=== PATIENT | female | born 1935 | race Caucasian/White ===

== ENCOUNTER 2024-01-14 07:57 | Outpatient (CLI) | payer MEDICARE, BC, MEDICAID, SELFPAY | END 2024-01-14 07:58 | disposition home or self-care (01) | PROVIDERS: Visit Provider Internal Medicine | DX: S79.911A Unspecified injury of right hip, initial encounter (principal); W18.30XA Fall on same level, unspecified, initial encounter; Y92.008 Other place in unspecified non-institutional (private) residence as the place of occurrence of the external cause | CPT/HCPCS: A0425; A0427 ==

== ENCOUNTER 2024-01-14 08:28 | Inpatient (IN) | payer MEDICARE, BC, MEDICAID, SELFPAY ==
[2024-01-14] VITALS (55 sets, daily range): BP systolic 98–160; BP diastolic 43–92; PULSE 81–119; RESP 16–20; TEMP 36.4–37.2; O2SAT 89–96; BMI 18.5
--- NOTE | 2024-01-14 08:39 | CRLHL7_ITS ---
For Patients: As a result of the Cures Act, medical imaging exams and procedure reports are released immediately into your electronic medical record. You may view this report before your referring provider. If you have questions, please contact your health care provider. INDICATION: Fall. TECHNIQUE: Chest 1 views. COMPARISON: None. FINDINGS: Cardiovasculature and mediastinum: Heart size is normal. Unremarkable mediastinum. Lungs and pleural spaces: Lungs are clear except for a few small calcified granulomas. No sign of infiltrate or mass. No sign of pleural effusion. No pneumothorax. Bones and soft tissues: No significant findings. IMPRESSION: No acute or significant findings. Dictated by Oseas Alvarez MD @ 01/14/2024 11:17:08 AM (Electronically Signed)
--- NOTE | 2024-01-14 08:39 | CRLHL7_ITS ---
For Patients: As a result of the Century Cures Act, medical imaging exams and procedure reports are released immediately into your electronic medical record. You may view this report before your referring provider. If you have questions, please contact your health care provider. Indication: Fall with right hip pain. Technique: Pelvis and right hip 3 views. Comparison: None. Findings/Impression: Bones: Acute nondisplaced subcapital fracture of the right femoral neck. No other osseous abnormality. Joint spaces: Severe bilateral hip joint arthritis. Soft tissues: Unremarkable. Dictated by Oseas Alvarez MD @ 01/14/2024 11:18:31 AM (Electronically Signed)
--- NOTE | 2024-01-14 08:50 | ED_ITS ---
HPI - General Adult General Date Seen: 01/14/24 Chief complaint: Hip Injury/Pain Stated complaint: altered mental status Time Seen by Provider: 01/14/24 08:31 Source: patient, EMS, RN notes reviewed and old records reviewed Mode of arrival: EMS Limitations: no limitations History of Present Illness HPI narrative: This very pleasant 88-year-old female is brought in by EMS from home where she resides with family and help. She was coming down the steps, had woke up and was coming downstairs, had not ate or drink anything. Coming down the last step, felt a little lightheaded and did fall, injured her right hip, complain of right hip pain after that. EMS was called, patient could not bear weight on her right side. They did place an IV, did give her 2 doses of 25 mcg of fentanyl in route, patient states her pain is controlled as long as she is sitting still right now. Her glucose was 310 per EMS. She is known to have atrial fibrillation but does not take any medical management for this as far as anticoagulation, do not know if she has any rate control medicine for this. She denies hitting her head, has no head, neck or back pain. She is having no difficulty breathing, no chest pain, no abdominal pain. Denies any numbness tingling anywhere. Nothing else was injured in the fall on questioning. Related Data Home Medications ?Medication ?Instructions ?Recorded ?Confirmed No Known Home Medications 01/14/24 01/14/24 Allergies Allergy/AdvReac Type Severity Reaction Status Date / Time No Known Drug Allergies Allergy Verified 01/14/24 08:34 Review of Systems Status of ROS: Reports: 6 or more systems reviewed and unremarkable except as noted in History and below [facility] Medical History (Updated 01/14/24 @ 14:28 by Ruthie Chapin MD) Atrial fibrillation ?I48.91 - Unspecified atrial fibrillation (ICD-10) Social History How often do you have a drink containing alcohol: never AUDIT-C Alcohol total score: 0 Non-prescribed substance use: denies use Exam Const: Vital Signs, click to edit/add: Vital Signs - 24 hr 01/14/24 08:35 01/14/24 08:47 01/14/24 09:00 Temperature 97.5 F L Pulse Rate 107 H 101 H Pulse Rate [Pulse Oximeter] 111 H Respiratory Rate 20 Blood Pressure Blood Pressure [Le ft Upper Arm] 160/84 H Pulse Oximetry 96 96 95 Oxygen Delivery Me thod Room Air 01/14/24 09:01 01/14/24 09:02 01/14/24 09:15 Temperature Pulse Rate 107 H 115 H 113 H Pulse Rate [Pulse Oximeter] Respiratory Rate Blood Pressure 143/73 H Blood Pressure [Le ft Upper Arm] Pulse Oximetry 94 94 95 Oxygen Delivery Me thod 01/14/24 09:21 01/14/24 09:30 01/14/24 09:41 Temperature Pulse Rate 108 H 116 H 101 H Pulse Rate [Pulse Oximeter] Respiratory Rate Blood Pressure 144/59 H 147/61 H Blood Pressure [Le ft Upper Arm] Pulse Oximetry 95 93 93 Oxygen Delivery Me thod 01/14/24 09:45 01/14/24 10:00 01/14/24 10:01 Temperature Pulse Rate 112 H 87 90 Pulse Rate [Pulse Oximeter] Respiratory Rate Blood Pressure 98/43 L Blood Pressure [Le ft Upper Arm] Pulse Oximetry 94 94 95 Oxygen Delivery Me thod 01/14/24 10:15 01/14/24 10:21 01/14/24 10:22 Temperature Pulse Rate 102 H 93 103 H Pulse Rate [Pulse Oximeter] Respiratory Rate 16 Blood Pressure 124/61 Blood Pressure [Le ft Upper Arm] Pulse Oximetry 94 95 94 Oxygen Delivery Me thod 01/14/24 10:53 01/14/24 11:00 01/14/24 11:01 Temperature Pulse Rate 114 H 110 H 105 H Pulse Rate [Pulse Oximeter] Respiratory Rate Blood Pressure 117/62 Blood Pressure [Le ft Upper Arm] Pulse Oximetry 93 96 94 Oxygen Delivery Me thod 01/14/24 11:15 01/14/24 11:21 01/14/24 11:30 Temperature Pulse Rate 116 H 119 H 114 H Pulse Rate [Pulse Oximeter] Respiratory Rate Blood Pressure 118/64 Blood Pressure [Le ft Upper Arm] Pulse Oximetry 96 95 95 Oxygen Delivery Me thod 01/14/24 11:41 01/14/24 11:45 01/14/24 12:00 Temperature Pulse Rate 111 H 108 H 107 H Pulse Rate [Pulse Oximeter] Respiratory Rate Blood Pressure 108/72 Blood Pressure [Le ft Upper Arm] Pulse Oximetry 96 94 95 Oxygen Delivery Me thod 01/14/24 12:01 01/14/24 12:11 01/14/24 12:13 Temperature Pulse Rate 102 H 98 107 H Pulse Rate [Pulse Oximeter] Respiratory Rate Blood Pressure 107/63 141/55 H Blood Pressure [Le ft Upper Arm] Pulse Oximetry 96 94 96 Oxygen Delivery Me thod 01/14/24 12:15 01/14/24 12:20 01/14/24 12:30 Temperature Pulse Rate 100 97 103 H Pulse Rate [Pulse Oximeter] Respiratory Rate Blood Pressure 124/92 H Blood Pressure [Le ft Upper Arm] Pulse Oximetry 94 92 92 Oxygen Delivery Nd thod 01/14/24 12:31 01/14/24 12:41 01/14/24 12:45 Temperature Pulse Rate 106 H 81 92 Pulse Rate [Pulse Oximeter] Respiratory Rate 16 Blood Pressure 132/72 124/67 Blood Pressure [Le ft Upper Arm] Pulse Oximetry 92 95 94 Oxygen Delivery Me thod 01/14/24 13:00 01/14/24 13:02 01/14/24 13:11 Temperature Pulse Rate 92 102 H 91 Pulse Rate [Pulse Oximeter] Respiratory Rate Blood Pressure 109/59 L 138/66 Blood Pressure [Le ft Upper Arm] Pulse Oximetry 92 94 [facility] 01/14/24 13:15 01/14/24 13:21 01/14/24 13:30 Temperature Pulse Rate 94 97 93 Pulse Rate [Pulse Oximeter] Respiratory Rate Blood Pressure 137/68 Blood Pressure [Le ft Upper Arm] Pulse Oximetry 94 93 94 Oxygen Delivery Nd thod 01/14/24 13:31 01/14/24 13:41 01/14/24 13:45 Temperature Pulse Rate 97 89 94 Pulse Rate [Pulse Oximeter] Respiratory Rate Blood Pressure 139/64 134/68 Blood Pressure [Le ft Upper Arm] Pulse Oximetry 94 94 92 Oxygen Delivery Nd thod 01/14/24 13:51 01/14/24 14:00 01/14/24 14:01 Temperature Pulse Rate 93 94 96 Pulse Rate [Pulse Oximeter] Respiratory Rate Blood Pressure 136/58 L 144/68 H Blood Pressure [Le ft Upper Arm] Pulse Oximetry 94 93 92 Oxygen Delivery Nd thod 01/14/24 14:11 01/14/24 14:15 01/14/24 14:21 Temperature Pulse Rate 94 96 98 Pulse Rate [Pulse Oximeter] Respiratory Rate 16 Blood Pressure 138/62 152/66 H Blood Pressure [Le ft Upper Arm] Pulse Oximetry 92 93 94 Oxygen Delivery Me thod 01/14/24 14:30 01/14/24 14:31 01/14/24 14:41 Temperature Pulse Rate 97 101 H 97 Pulse Rate [Pulse Oximeter] Respiratory Rate Blood Pressure 140/60 H 133/64 Blood Pressure [Le ft Upper Arm] Pulse Oximetry 93 92 90 Oxygen Delivery Me thod 88-year-old female is lying in bed in ex am room 6, she is alert, interactive, no apparent distress. She does look frail and pale. Conjugate gaze, sclera clear. Symmetrical facial function, speech normal. Under, no adenopathy or masses come do not appreciate jugular venous distension. Breathing easy on room air, lungs are clear, no wheezing or crackles, no tachypnea. CV is irregular, slightly fast, in the low 100s in atrial fibrillation on the monitor. Hear no murmur, normal S1-S2, no S3-S4. Abdomen is soft, nontender, nondistended, no masses or organomegaly noted. She does not have pain over the lateral hip or trochanter area on palpation but has a come around into the groin area she states it hurt below there in her hip. Leg looks slightly shortened on this right side but distally she has normal sensation, normal warmth in coloration. She has good distal pulses. She has no complaints of pain over the foot, ankle, knee. Documenting provider has reviewed patient's vital signs: yes Course Course ED Course: Presumably she has a hip fracture with the shortening of the leg in the complain of hip pain. Alternatively there certainly could be a pelvic fracture but mo suspect hip fracture. Will be getting chest imaging and right hip views. Will have her on cardiac monitoring and pulse oximetry. Will get EKG and appropriate labs on her. Monitor for ongoing pain. Reevaluation(s) Time of Reevaluation #1: 11:50 Reevaluation #1: Did check on patient around 11:50 a.m.. She is comfortable. For atrial fibrillation is in the low 100s again, will order 2.5 mg IV metoprolol. Will initiate small bolus of lactated Ringer's and initiate maintenance. Time of Reevaluation #2: 12:17 Reevaluation #2: Patient's urinalysis does show nitrite positivity, white blood count is eleva thaddeus. Do suspect she has underlying UTI and possibly was symptomatic from that as the cause of her fall. Have ordered Rocephin IV to treat this. Consultations Consultation #1: Mariela from Orthopedics is here. I have shown her the images. She is going to talk to Ortho to see if they may surgically do this today. Will await her call to the physician. Will place Menard catheter and obtain urinalysis from the Menard catheter. 11:17 a.m.: Have heard from Mariela, they would like to plan to do the surgery today. I think she is clear for trial of anesthesia for this procedure, will talk to anesthesia. Have updated the hospitalist that this patient will be going to the OR, will come to the floor after surgery. Time: 11:02 Consultation #2: Have spoken with the hospitalist Dr. Briones. Worked with Hemalatha from anesthesia, it became apparent that this patient was confused. She actually is on medicines but stated she was on no medicines on arrival. She has been getting medication refills through her clinic. There is no documentation of prior atrial f ibrillation. The report by EMS that this patient had chronic atrial fibrillation is probably not correct. When I talked with the patient more, she told me she has no idea of being told that she had atrial fibrillation, has never been offered her talk to about blood thinners. Discussion with anesthesia, have decided to hold off surgery for today and work on medical stabilization. She did receive Rocephin IV for UTI. The atrial fibrillation with RVR is possibly secondary to underlying illness. Nursing staff who did pull up patient's chart, sees Dan[facility] at [facility] in [place]. Her past medical history is significant for anxiety disorder history of colon polyps, last 1 appears to have been 05/20/2011, hypertension, osteoporosis, ulcerative colitis. She is treated for her hypertension with Norvasc, atenolol, Benicar. No mention of atrial fibrillation can be found at this time. Time: 14:22 Vital Signs Vital signs: Initial Vital Signs Temperature 97.5 F L 01/14/24 08:35 Temperature Source Temporal Artery Scan 01/14/24 08:35 Pulse Rate 111 H 01/14/24 08:35 Respiratory Rate 20 01/14/24 08:35 Blood Pressure 160/84 H 01/14/24 08:35 Blood Pressure Mean 109 H 01/14/24 08:35 Blood Pressure Position Sitting 01/14/24 08:35 Pulse Oximetry 96 01/14/24 08:35 Oxygen Delivery Method Room Air 01/14/24 08:35 Vital Signs Temperature 97.5 F L 01/14/24 08:35 Pulse Rate 111 H 01/14/24 08:35 Respiratory Rate 20 01/14/24 08:35 Blood Pressure 160/84 H 01/14/24 08:35 Pulse Oximetry 96 01/14/24 08:35 Oxygen Delivery Method Room Air 01/14/24 08:35 Temperature 97.5 F L 01/14/24 08:35 Pulse Rate 97 01/14/24 14:41 Respiratory Rate 16 01/14/24 14:21 Blood Pressure 133/64 01/14/24 14:41 Pulse Oximetry 90 01/14/24 14:41 Oxygen Delivery Method Room Air 01/14/24 08:35 Medications Administered Medications: Generic Name Dose Route Start Last Admin Trade Name Freq PRN Reason Stop Dose Admin Fentanyl 25 mcg 01/14/24 09:35 01/14/24 14:32 Fentanyl 100 Mcg/2 Ml Inj IVP 25 mcg Q2H PRN Administration Lactated Ringer's 1,000 mls @ 75 mls/hr 01/14/24 11:55 01/14/24 13:06 Lactated Ringers 1000 Ml IV 75 mls/hr .[id number] CATALINO Administration Discontinued Medications Generic Name Dose Route Start Last Admin Trade Name Freq PRN Reason Stop Dose Admin Lactated Ringer's 500 mls @ 500 mls/hr 01/14/24 11:53 01/14/24 12:44 Lactated Ringers 500 Ml IV 01/14/24 12:52 Infused .Q1H ONE Infusion Ceftriaxone Sodium 1 gm/ 100 mls @ 200 mls/hr 01/14/24 12:14 01/14/24 14:02 Sodium Chloride IVPB 01/14/24 12:15 Infused ONCE ONE Infusion Metoprolol Tartrate 2.5 mg 01/14/24 11:53 01/14/24 12:15 Metoprolol Tartrate 1 Mg/Ml Inj IVP 01/14/24 11:54 2.5 mg ONCE ONE Administration Medical Decision Making Lab Data Lab results reviewed: Yes I reviewed the patient's lab results Labs: Lab Results 01/14/24 01/14/24 Range/Units 08:52 11:20 WBC 14.77 H (4.50-11.00) K/uL RBC 3.96 L (4.00-5.20) m/uL Hgb 12.3 (12.0-16.0) gm/dL Hct 37.4 (33.0-51.0) % MCV 94 (80-100) fL MCH 31 (26-34) pg MCHC 33 (32-36) gm/dL RDW Coeff of Celina 12.4 (11.5-15.5) % Plt Count 318 (140-440) K/uL Neut % (Auto) 83.6 H (42.0-72.0) % Lymph % (Auto) 9.6 L (20-44) % Bonner % (Auto) 6.0 (0.0-11.0) % Eos % (Auto) 0.4 (0.0-7.0) % Baso % (Auto) 0.1 (0.0-3.0) % Neut # (Auto) 12.30 H (1.7-7.0) K/uL Lymph # (Auto) 1.40 (0.90-2.90) K/uL Bonner # (Auto) 0.90 (0.00-0.90) K/UL Eos # (Auto) 0.10 (0.00-0.50) K/uL Baso # (Auto) 0.00 (0.00-0.30) K/uL Abs Immat Gran (auto) 0.00 (0.00-0.30) K/uL Imm/Tot Granulo (auto) 0.3 % Sodium 131 L (135-149) mmol/L Potassium 3.8 (3.6-5.1) mmol/L Chloride 97 (96-114) mmol/L Carbon Dioxide 23 (20-32) mmol/L Anion Gap 11 (7-15) mEq/L BUN 18 (7-30) mg/dL Creatinine 0.5 (0.5-1.5) mg/dL Estimated Creat Clear 28.34 Estimated GFR 91 ml/min Glucose 191 H (60-115) mg/dL Hemoglobin A1c 5.5 (0-5.6) % Calcium 9.4 (8.4-10.6) mg/dL Total Bilirubin 0.3 (0.1-1.5) mg/dL AST 25 (12-35) U/L ALT 17 (4-35) U/L Alkaline Phosphatase 89 (40-150) U/L Troponin I < 0.01 L (0.01-0.04) ng/mL NT-Pro-B Natriuret Pep 3320 pg/mL Total Protein 7.0 (6.0-8.3) g/dL Albumin 4.1 (3.3-5.0) g/dL Urine Color Yellow (Yellow) Urine Appearance Cloudy A (Clear) Urine pH 6.5 (5.0-8.5) Ur Specific [place] 1.025 (1.000-1.030) Urine Protein 3+ A (Negative) Urine Glucose (UA) Negative (Negative) Urine Ketones Trace A (Negative) Urine Blood Trace-intact A (Negative) Urine Nitrite Positive A (Negative) Urine Bilirubin Negative (Negative) Urine Urobilinogen 0.2 (0.2-1.0) Ur Leukocyte Esterase Trace A (Negative) Urine RBC 2-5 A (0-2) Urine WBC 2-5 (0-5) Ur Squamous Epith Cells Few (None-Few) Urine Bacteria Many A (None) Imaging Data Chest x-ray: Attestation: I have reviewed the pertinent imaging results. My impression: Portable chest image is visualize, see no evidence of any acute cardiopulmonary change, certainly no congestive heart failure. Radiologist's impression: Patient: TYRELL VALENTIN Facility:?[facility] Patient ID:?[id number] Site Patient ID:?[id number]. Site :?[id number] Study:?XRay-Chest 1v-01/14/2024 10:57:58 AM Ordering Physician:?Tavares Hendricks Final Report: INDICATION: Fall. TECHNIQUE: Chest 1 views. COMPARISON: None. FINDINGS: Cardiovasculature and mediastinum: Heart size is normal. Unremarkable mediastinum. Lungs and pleural spaces: Lungs are clear except for a few small calcified granulomas. No sign of infiltrate or mass. No sign of pleural effusion. No pneumothorax. Bones and soft tissues: No significant findings. IMPRESSION: No acute or significant findings. Dictated by Oseas Alvarez MD @ 01/14/2024 11:17:08 AM (Electronic Signature) XR right hip/pelvis: Attestation: I have reviewed the pertinent imaging results. My impression: Patient does have a femoral neck fracture my preliminary review. Radiologist's impression: Patient: TYRELL VALENTIN Facility:?[facility] Patient ID:?[id number] Site Patient ID:?[id number]. Site :?[id number] Study:?XRay-Hip Right 3v-01/14/2024 10:59:18 AM Ordering Physician:?Tavares Hendricks Final Report: Indication: Fall with right hip pain. Technique: Pelvis and right hip 3 views. Comparison: None. Findings/Impression: Bones: Acute nondisplaced subcapital fracture of the right femoral neck. No other osseous abnormality. Joint spaces: Severe bilateral hip joint arthritis. Soft tissues: Unremarkable. Dictated by Oseas Alvarez MD @ 01/14/2024 11:18:31 AM (Electronic Signature) CT scan - head: Attestation: I have reviewed the pertinent imaging results. Radiologist's impression: Patient: TYRELL VALENTIN Facility:?[facility] Patient ID:?[id number] Site Patient ID:?[id number]. Site :?[id number] Study:?CT-Head w/o-01/14/2024 1:04:41 PM Ordering Physician:?Tavares Hendricks Final Report: INDICATION: Fall, confusion, atrial fibrillation. TECHNIQUE: Noncontrast axial CT of the head. Coronal and sagittal reformats. Bone and soft tissue algorithms. COMPARISON: No relevant comparison studies available at this institution. FINDINGS: No skull fracture. No acute intracranial hemorrhage or abnormal extra-axial fluid collection identified. No midline shift, hydrocephalus or herniation. Generalized cerebral volume loss. Preserved hernandez-white matter differentiation. Unremarkable midline structures. Calcific intracranial atherosclerotic plaquing. Clear visualized paranasal sinuses and mastoid air cells. Bilateral lens implants. IMPRESSION: 1. No skull fracture or acute intracranial hemorrhage identified. Please note that all CT scans at this facility use dose modulation, iterative reconstruction, and/or weight-based dosing when appropriate to reduce radiation dose to as low as reasonably achievable. Dictated by Emili Mosher MD @ 01/14/2024 1:29:20 PM (Electronic Signature) ECG Data Attestation: I personally reviewed and interpreted this ECG as follows: (Atrial fibrillation with rapid ventricular response, rate 106 beats per minute. Nonspecific ST segment and T-wave changes.) Prior ECG tracings: not available for review Critical Care Time Critical Care Time Critical Care Time: No Total Critical Care Time in Minutes: 30 Discharge Plan Discharge Clinical Impression: Atrial fibrillation with rapid ventricular response Fall Qualifiers: Encounter type: initial encounter Qualified Code(s): W19.XXXA - Unspecified fall, initial encounter Closed fracture of right hip Qualifiers: Encounter type: initial encounter Qualified Code(s): S72.001A - Fracture of unspecified part of neck of right femur, initial encounter for closed fracture Urinary tract infection Qualifiers: Urinary tract infection type: acute cystitis Hematuria presence: without hematuria Qualified Code(s): N30.00 - Acute cystitis without hematuria Patient Disposition: Admitted As Observation
[2024-01-14 09:02] LABS: Basophils Percent Auto 0.1 % (0.0-3.0); Eosinophils Percent Auto 0.4 % (0.0-7.0); Hematocrit 37.4 % (33.0-51.0); Hemoglobin* 12.3 gm/dL (12.0-16.0); Immature Granulocytes Pct Auto 0.3 %; Lymphocytes Percent Auto 9.6 % (20-44); Mean Corpuscular HGB Conc 33 gm/dL (32-36); Mean Corpuscular Hemoglobin 31 pg (26-34); Mean Corpuscular Volume 94 fL (80-100); Neutrophils Percent Auto 83.6 % (42.0-72.0); Platelet Count* 318 K/uL (140-440); RDW Coefficient of Variation % 12.4 % (11.5-15.5); Red Blood Count 3.96 m/uL (4.00-5.20); White Blood Count* 14.77 K/uL (4.50-11.00)
[2024-01-14 09:10] LABS: Slide Review Reflex No
[2024-01-14 09:19] LABS: Albumin* 4.1 g/dL (3.3-5.0); Chloride* 97 mmol/L (96-114); Sodium* 131 mmol/L (135-149)
[2024-01-14 09:20] LABS: Potassium* 3.8 mmol/L (3.6-5.1)
[2024-01-14] MEDS: fentaNYL 100 MCG/2 ML inj 25 MCG IVP ×3 (09:20→14:32)
[2024-01-14 09:21] LABS: Creatinine* 0.5 mg/dL (0.5-1.5); Est. Creatinine Clearance* 28.34; Estimated Glomerular Filt Rate 91 ml/min
[2024-01-14 09:22] LABS: Alanine Aminotransferase* 17 U/L (4-35); Alkaline Phosphatase* 89 U/L (40-150); Anion Gap 11 mEq/L (7-15); Aspartate Amino Transferase* 25 U/L (12-35); Bilirubin Total* 0.3 mg/dL (0.1-1.5); Blood Urea Nitrogen* 18 mg/dL (7-30); Calcium* 9.4 mg/dL (8.4-10.6); Carbon Dioxide* 23 mmol/L (20-32); Glucose* 191 mg/dL (60-115)
[2024-01-14 09:25] LABS: Hemoglobin A1C* 5.5 % (0-5.6)
[2024-01-14 09:33] LABS: NT Pro B Type NatriureticPept* 3320 pg/mL
[2024-01-14 09:34] LABS: Troponin I* < 0.01 ng/mL (0.01-0.04)
[2024-01-14 11:29] LABS: Appearance Urine Cloudy (Clear); Bilirubin Urine Negative (Negative); Blood Urine Trace-intact (Negative); Color Urine Yellow (Yellow); Glucose Urine Negative (Negative); Ketones Urine Trace (Negative); Leukocyte Esterase Urine Trace (Negative); Nitrite Urine Positive (Negative); Protein Urine 3+ (Negative); Specific Gravity Urine 1.025 (1.000-1.030); Urobilinogen Urine 0.2 (0.2-1.0); pH Urine 6.5 (5.0-8.5)
[2024-01-14 11:39] LABS: Bacteria Urine Many; Squamous Epithelial Cell Urine Few (None-Few)
--- NOTE | 2024-01-14 11:43 | ED.NURSE ---
-HR jumping up into 120s for 5-10 seconds intermittently. updated
[2024-01-14] MEDS: LACTATED RINGERS 500 ML 500 ML IV (12:07)
[2024-01-14] MEDS: METOPROLOL TARTRATE 1 MG/ML inj 2.5 MG IVP (12:15)
--- NOTE | 2024-01-14 12:39 | CRLHL7_ITS ---
For Patients: As a result of the Century Cures Act, medical imaging exams and procedure reports are released immediately into your electronic medical record. You may view this report before your referring provider. If you have questions, please contact your health care provider. INDICATION: Fall, confusion, atrial fibrillation. TECHNIQUE: Noncontrast axial CT of the head. Coronal and sagittal reformats. Bone and soft tissue algorithms. COMPARISON: No relevant comparison studies available at this institution. FINDINGS: No skull fracture. No acute intracranial hemorrhage or abnormal extra-axial fluid collection identified. No midline shift, hydrocephalus or herniation. Generalized cerebral volume loss. Preserved hernandez-white matter differentiation. Unremarkable midline structures. Calcific intracranial atherosclerotic plaquing. Clear visualized paranasal sinuses and mastoid air cells. Bilateral lens implants. IMPRESSION: 1. No skull fracture or acute intracranial hemorrhage identified. Please note that all CT scans at this facility use dose modulation, iterative reconstruction, and/or weight-based dosing when appropriate to reduce radiation dose to as low as reasonably achievable. Dictated by Emili Mosher MD @ 01/14/2024 1:29:20 PM (Electronically Signed)
[2024-01-14] MEDS: cefTRIAXone 1 GM in 0.9 % SODIUM CHLORIDE Mini-bag 100 ML IVPB (13:06)
[2024-01-14] MEDS: LACTATED RINGERS 1000 ML 1,000 ML 75 ML IV (13:06)
[2024-01-14] MEDS: 0.9 % SODIUM CH + KCL 20 mEq/L 1,000 ML 75 ML IV (17:08)
[2024-01-14] MEDS: atenoloL 25 MG TABLET PO (17:08)
[2024-01-14] MEDS: MORPHINE 4 MG/ML INJ 2 MG IVP (17:15)
--- NOTE | 2024-01-14 18:10 | P.IMHP_ITS ---
Hospitalist- H&P: HPI History of Present Illness Date Seen: 01/14/24 Chief complaint: altered mental status Narrative: Niya Cruz is a 88 year old female admitted to the hospital for evaluation treatment of injuries related to a fall at home. Patient was walking stairs at home when she missed the last step falling and injuring her right hip. She reports no other injuries. She did not hit her head. She did not lose consciousness. She was able to pull herself back up under the steps but unable to stand and walk. She has a roommate who called 911. She lives with a roommate in a two-story house. She lives on the 2nd floor and her roommate lives on the 1st floor. She reports this is been going well for her she does not use a cane or a walker for ambulation. She reports no medical problems in no medications but on further questioning it sounds like she is taking 3 blood pressure medicines, amlodipine atenolol and olmesartan and also occasionally takes diazepam for anxiety but not every day. He has not had any diazepam in the last day. Review of Systems Narrative: She reports no recent illness, cold, cough, sore throat, shortness of breath, chest pain, abdominal pain, nausea, vomiting, diarrhea, urinary problems. No other injuries besides her right hip. [facility] Medical History (Updated 01/14/24 @ 18:26 by Mauricio Briones MD) Generalized anxiety disorder ?F41.1 - Generalized anxiety disorder (ICD-10) Hypertension ?I10 - Essential (primary) hypertension (ICD-10) Ulcerative colitis ?K51.90 - Ulcerative colitis, unspecified, without complications (ICD-10) Atrial fibrillation ?I48.91 - Unspecified atrial fibrillation (ICD-10) Surgical History (Updated 01/14/24 @ 18:16 by Mauricio Briones MD) History of colonoscopy ?Z98.890 - Other specified postprocedural states (ICD-10) Family History (Updated 01/14/24 @ 18:17 by Mauricio Briones MD) Father Heart disease Sister Heart disease Brother Stroke Mother Stroke Social History (Updated 01/14/24 @ 18:19 by Mauricio Briones MD) Narrative: She lives in her own home with a 2 story building. She lives on the top floor having to walk up a whole flight of stairs to get to where she lives. She has a female housemate who lives on the lower level. She is originally from [place] and moved to the [place] about 40 years ago. She is now planning to move back to [place] with her family. Her healthcare power of electrical checkout mechanic is Robinson Rogers, her roommate and friend. Code status is full. She does not smoke and she does not drink. What is your current living situation?: I presently have a place to live Problems where you live: no known problems Problems where you live details: no known problems In the past 12 months, utilities in danger of being shut off: no In past 12 months, lack of transportation kept you from medical appts, meetings, work, or getting things needed for daily living: no In the past 12 mos, have been you worried that your food would run out before you had money to buy more?: never true In the past 12 mos, the food you bought just didn't last and you didn't have money to buy more?: never true Highest level of school completed/degree received: high school graduate Smoking Status: Never smoker How often do you have a drink containing alcohol: never AUDIT-C Alcohol total score: 0 Non-prescribed substance use: denies use Caffeine: Yes How often does anyone, including family, friends and others, physically hurt you : never How often does anyone, including family, friends and others, insult or talk down to you: never How often does anyone, including family, friends and others, threaten you with harm: never How often does anyone, including family, friends and others, scream or curse at you: never service: No Meds Home Medications and Allergies Home Medications ?Medication ?Instructions ?Recorded ?Confirmed ?Type amlodipine 10 mg tablet 10 mg PO DAILY 01/14/24 01/14/24 History atenolol 25 mg tablet 25 mg PO DAILY 01/14/24 01/14/24 History diazepam 5 mg tablet 5 mg PO DAILY PRN 01/14/24 01/14/24 History olmesartan 40 mg tablet 40 mg PO DAILY 01/14/24 01/14/24 History Allergies Allergy/AdvReac Type Severity Reaction Status Date / Time No Known Drug Allergies Allergy Verified 01/14/24 08:34 Exam Narrative: Exam Narrative: She is alert and oriented to her circumstances. She gives her own history. Head is without apparent trauma. Eyes are normal. Oropharynx is normal. Neck is supple without mass or adenopathy. No jugular venous distension. Respirations are clear to auscultation. No wheezing rales or rhonchi. Cardiovascular: S1, S2, regular rate and rhythm. No murmur gallop or rub. Abdomen: Bowel sounds active. Abdomen is soft without tenderness or mass. External genitalia normal. Inspection of the hip is normal without obvious bruising or deformity. Distally she has intact pedal pulses intact strength and sensation. No edema. Const: Vital Signs, click to edit/add: Vital Signs - 24 hr 01/14/24 08:35 01/14/24 08:47 01/14/24 09:00 Temperature 97.5 F L Pulse Rate 107 H 101 H Pulse Rate [Pulse Oximeter] 111 H Respiratory Rate 20 Blood Pressure Blood Pressure [Le ft Arm] Blood Pressure [Le ft Upper Arm] 160/84 H Pulse Oximetry 96 96 95 Oxygen Delivery Me od Room Air 01/14/24 09:01 01/14/24 09:02 01/14/24 09:15 Temperature Pulse Rate 107 H 115 H 113 H Pulse Rate [Pulse Oximeter] Respiratory Rate Blood Pressure 143/73 H Blood Pressure [Le ft Arm] Blood Pressure [Le ft Upper Arm] Pulse Oximetry 94 94 95 Oxygen Delivery Me thod 01/14/24 09:21 01/14/24 09:30 01/14/24 09:41 Temperature Pulse Rate 108 H 116 H 101 H Pulse Rate [Pulse Oximeter] Respiratory Rate Blood Pressure 144/59 H 147/61 H Blood Pressure [Le ft Arm] Blood Pressure [Le ft Upper Arm] Pulse Oximetry 95 93 93 Oxygen Delivery Me thod 01/14/24 09:45 01/14/24 10:00 01/14/24 10:01 Temperature Pulse Rate 112 H 87 90 Pulse Rate [Pulse Oximeter] Respiratory Rate Blood Pressure 98/43 L Blood Pressure [Le ft Arm] Blood Pressure [Le ft Upper Arm] Pulse Oximetry 94 94 95 Oxygen Delivery Me thod 01/14/24 10:15 01/14/24 10:21 01/14/24 10:22 Temperature Pulse Rate 102 H 93 103 H Pulse Rate [Pulse Oximeter] Respiratory Rate 16 Blood Pressure 124/61 Blood Pressure [Le ft Arm] Blood Pressure [Le ft Upper Arm] Pulse Oximetry 94 95 94 Oxygen Delivery Me thod 01/14/24 10:53 01/14/24 11:00 01/14/24 11:01 Temperature Pulse Rate 114 H 110 H 105 H Pulse Rate [Pulse Oximeter] Respiratory Rate Blood Pressure 117/62 Blood Pressure [Le ft Arm] Blood Pressure [Le ft Upper Arm] Pulse Oximetry 93 96 94 Oxygen Delivery Me thod 01/14/24 11:15 01/14/24 11:21 01/14/24 11:30 Temperature Pulse Rate 116 H 119 H 114 H Pulse Rate [Pulse Oximeter] Respiratory Rate Blood Pressure 118/64 Blood Pressure [Le ft Arm] Blood Pressure [Le ft Upper Arm] Pulse Oximetry 96 95 95 Oxygen Delivery Me thod 01/14/24 11:41 01/14/24 11:45 01/14/24 12:00 Temperature Pulse Rate 111 H 108 H 107 H Pulse Rate [Pulse Oximeter] Respiratory Rate Blood Pressure 108/72 Blood Pressure [Le ft Arm] Blood Pressure [Le ft Upper Arm] Pulse Oximetry 96 94 95 Oxygen Delivery Me od 01/14/24 12:01 01/14/24 12:11 01/14/24 12:13 Temperature Pulse Rate 102 H 98 107 H Pulse Rate [Pulse Oximeter] Respiratory Rate Blood Pressure 107/63 141/55 H Blood Pressure [Le ft Arm] Blood Pressure [Le ft Upper Arm] Pulse Oximetry 96 94 96 Oxygen Delivery Me od 01/14/24 12:15 01/14/24 12:20 01/14/24 12:30 Temperature Pulse Rate 100 97 103 H Pulse Rate [Pulse Oximeter] Respiratory Rate Blood Pressure 124/92 H Blood Pressure [Le ft Arm] Blood Pressure [Le ft Upper Arm] Pulse Oximetry 94 92 92 Oxygen Delivery Me thod 01/14/24 12:31 01/14/24 12:41 01/14/24 12:45 Temperature Pulse Rate 106 H 81 92 Pulse Rate [Pulse Oximeter] Respiratory Rate 16 Blood Pressure 132/72 124/67 Blood Pressure [Le ft Arm] Blood Pressure [Le ft Upper Arm] Pulse Oximetry 92 95 94 Oxygen Delivery Me thod 01/14/24 13:00 01/14/24 13:02 01/14/24 13:11 Temperature Pulse Rate 92 102 H 91 Pulse Rate [Pulse Oximeter] Respiratory Rate Blood Pressure 109/59 L 138/66 Blood Pressure [Le ft Arm] Blood Pressure [Le ft Upper Arm] Pulse Oximetry 92 94 Oxygen Delivery Me thod 01/14/24 13:15 01/14/24 13:21 01/14/24 13:30 Temperature Pulse Rate 94 97 93 Pulse Rate [Pulse Oximeter] Respiratory Rate Blood Pressure 137/68 Blood Pressure [Le ft Arm] Blood Pressure [Le ft Upper Arm] Pulse Oximetry 94 93 94 Oxygen Delivery Me thod 01/14/24 13:31 01/14/24 13:41 01/14/24 13:45 Temperature Pulse Rate 97 89 94 Pulse Rate [Pulse Oximeter] Respiratory Rate Blood Pressure 139/64 134/68 Blood Pressure [Le ft Arm] Blood Pressure [Le ft Upper Arm] Pulse Oximetry 94 94 92 Oxygen Delivery Me od 01/14/24 13:51 01/14/24 14:00 01/14/24 14:01 Temperature Pulse Rate 93 94 96 Pulse Rate [Pulse Oximeter] Respiratory Rate Blood Pressure 136/58 L 144/68 H Blood Pressure [Le ft Arm] Blood Pressure [Le ft Upper Arm] Pulse Oximetry 94 93 92 Oxygen Delivery Me od 01/14/24 14:11 01/14/24 14:15 01/14/24 14:21 Temperature Pulse Rate 94 96 98 Pulse Rate [Pulse Oximeter] Respiratory Rate 16 Blood Pressure 138/62 152/66 H Blood Pressure [Le ft Arm] Blood Pressure [Le ft Upper Arm] Pulse Oximetry 92 93 94 Oxygen Delivery Me od 01/14/24 14:30 01/14/24 14:31 01/14/24 14:41 Temperature Pulse Rate 97 101 H 97 Pulse Rate [Pulse Oximeter] Respiratory Rate Blood Pressure 140/60 H 133/64 Blood Pressure [Le ft Arm] Blood Pressure [Le ft Upper Arm] Pulse Oximetry 93 92 90 Oxygen Delivery Me thod 01/14/24 15:25 01/14/24 15:25 01/14/24 16:46 Temperature 99 F Pulse Rate 95 Pulse Rate [Pulse Oximeter] Respiratory Rate 16 16 Blood Pressure Blood Pressure [Le ft Arm] 139/66 Blood Pressure [Le ft Upper Arm] Pulse Oximetry 91 91 Oxygen Delivery Me thod Room Air Room Air Hospitalist - H&P: Result Labs Labs: Short CBC 01/14/24 Range/Units 08:52 WBC 14.77 H (4.50-11.00) K/uL Hgb 12.3 (12.0-16.0) gm/dL Hct 37.4 (33.0-51.0) % Plt Count 318 (140-440) K/uL BMP 01/14/24 08:52 Sodium 131 L Potassium 3.8 Chloride 97 Carbon Dioxide 23 BUN 18 Creatinine 0.5 Glucose 191 H Calcium 9.4 Cardiac Enzymes 01/14/24 Range/Units 08:52 Troponin I < 0.01 L (0.01-0.04) ng/mL Liver Function 01/14/24 Range/Units 08:52 Total Bilirubin 0.3 (0.1-1.5) mg/dL AST 25 (12-35) U/L ALT 17 (4-35) U/L Alkaline Phosphatase 89 (40-150) U/L Albumin 4.1 (3.3-5.0) g/dL Urine 01/14/24 Range/Units 11:20 Urine Color Yellow (Yellow) Urine Appearance Cloudy A (Clear) Urine pH 6.5 (5.0-8.5) Ur Specific [place] 1.025 (1.000-1.030) Urine Protein 3+ A (Negative) Urine Glucose (UA) Negative (Negative) Imaging Chest x-ray: Radiologist's impression: INDICATION: Fall. TECHNIQUE: Chest 1 views. COMPARISON: None. FINDINGS: Cardiovasculature and mediastinum: Heart size is normal. Unremarkable mediastinum. Lungs and pleural spaces: Lungs are clear except for a few small calcified granulomas. No sign of infiltrate or mass. No sign of pleural effusion. No pneumothorax. Bones and soft tissues: No significant findings. IMPRESSION: No acute or significant findings. Hip x-ray: Radiologist's impression: Indication: Fall with right hip pain. Technique: Pelvis and right hip 3 views. Comparison: None. Findings/Impression: Bones: Acute nondisplaced subcapital fracture of the right femoral neck. No other osseous abnormality. Joint spaces: Severe bilateral hip joint arthritis. Soft tissues: Unremarkable. CT scan - head: Radiologist's impression: INDICATION: Fall, confusion, atrial fibrillation. TECHNIQUE: Noncontrast axial CT of the head. Coronal and sagittal reformats. Bone and soft tissue algorithms. COMPARISON: No relevant comparison studies available at this institution. FINDINGS: No skull fracture. No acute intracranial hemorrhage or abnormal extra-axial fluid collection identified. No midline shift, hydrocephalus or herniation. Generalized cerebral volume loss. Preserved hernandez-white matter differentiation. Unremarkable midline structures. Calcific intracranial atherosclerotic plaquing. Clear visualized paranasal sinuses and mastoid air cells. Bilateral lens implants. IMPRESSION: 1. No skull fracture or acute intracranial hemorrhage identified. Assessment and Plan Assessment and plan (1) Closed fracture of right hip: Problem comment: Pending surgical treatment. Status: Acute (2) Atrial fibrillation with rapid ventricular response: Problem comment: Had an episode of atrial fibrillation with RVR on admission but this is now resolved and she is in normal sinus rhythm. Will obtain echo cardiogram. Recommend initiation of full dose anticoagulation postoperatively Status: Acute (3) Urinary tract infection: Problem comment: Possible UTI based on urinalysis. Not currently symptomatic. Got 1 dose ceft riaxone. Marjorie op antibiotics with Ancef planned as well. Further antibiotics depending on clinical course and culture Status: Acute (4) Hypertension: Problem comment: Continue home atenolol. Hold olmesartan and amlodipine Status: Acute (5) Generalized anxiety disorder: Problem comment: Hold diazepam while receiving opioids. Status: Acute Plan 88-year-old females admitted to the hospital for hip fracture now discovered to have self-limited episode of AFib with RVR. Recommend surgery and next available time slot. Recommend postoperative VTE prophylaxis and stroke prophylaxis for AFib with full-dose anticoagulation. Total Time Spent Total Time Spent: Total time spent today is 80 minutes
[2024-01-14] MEDS: MORPHINE 4 MG/ML INJ IVP ×4 (18:26→22:51)
--- NOTE | 2024-01-14 19:26 | PC.NURSE ---
Patient up to floor at 1445. A/O x4. Patient rates pain in right hip 02/16 PRN morphine administered x2. Patient zazueta patent and draining. IV in right AC patent. Patient tolerating a reg. diet. NPO at midnight for possible surgery tomorrow 01/15/24.
[2024-01-14] MEDS: SODIUM CHLORIDE 0.9 % (FLUSH) 10 ML SYRINGE 5 ML IVF (20:44)
[2024-01-15] VITALS (26 sets, daily range): BP systolic 135–190; BP diastolic 62–170; PULSE 72–114; RESP 14–20; TEMP 36.1–37; O2SAT 86–98
[2024-01-15 06:27] LABS: Basophils Percent Auto 0.1 % (0.0-3.0); Hematocrit 30.7 % (33.0-51.0); Hemoglobin* 10.2 gm/dL (12.0-16.0); Immature Granulocytes Pct Auto 0.3 %; Lymphocytes Percent Auto 7.6 % (20-44); Mean Corpuscular HGB Conc 33 gm/dL (32-36); Mean Corpuscular Hemoglobin 31 pg (26-34); Mean Corpuscular Volume 95 fL (80-100); Monocytes Percent Auto 9.7 % (0.0-11.0); Neutrophils Percent Auto 82.3 % (42.0-72.0); Platelet Count* 246 K/uL (140-440); RDW Coefficient of Variation % 12.9 % (11.5-15.5); Red Blood Count 3.25 m/uL (4.00-5.20)
[2024-01-15 06:28] LABS: Slide Review Reflex No
[2024-01-15 06:41] LABS: Chloride* 103 mmol/L (96-114); Potassium* 4.5 mmol/L (3.6-5.1); Sodium* 132 mmol/L (135-149)
[2024-01-15 06:44] LABS: Anion Gap 4 mEq/L (7-15); Blood Urea Nitrogen* 22 mg/dL (7-30); Carbon Dioxide* 25 mmol/L (20-32); Creatinine* 0.6 mg/dL (0.5-1.5); Est. Creatinine Clearance* 29.44; Estimated Glomerular Filt Rate 87 ml/min; Glucose* 150 mg/dL (60-115)
--- NOTE | 2024-01-15 06:47 | PC.NURSE ---
End of shift [id number]: Alert and oriented x4. Pain to right hip managed with PRN morphine and ice pack. Denies any SOB or chest pain.
[2024-01-15] MEDS: 0.9 % SODIUM CH + KCL 20 mEq/L 1,000 ML 75 ML IV (06:57)
--- NOTE | 2024-01-15 08:17 | P.IMPN_ITS ---
Progress Note: A&P Assessment and plan (1) Closed fracture of right hip: Problem details: Pending surgical treatment. No further workup needed prior to surgery, okay to get echocardiogram after surgery. Status: Acute (2) Atrial fibrillation with rapid ventricular response: Problem details: Had an episode of atrial fibrillation with RVR on admission but this is now resolved and she is in normal sinus rhythm. Will obtain echo cardiogram. Recommend initiation of full dose anticoagulation postoperatively Status: Acute (3) Urinary tract infection: Problem details: Possible UTI based on urinalysis. Not currently symptomatic. Got 1 dose ceftriaxone. Marjorie op antibiotics with Ancef planned as well. Urine cultures in progress. Further antibiotics depending on clinical course and culture Status: Acute (4) Hypertension: Problem details: Continue home atenolol. Hold olmesartan and amlodipine Status: Acute (5) Generalized anxiety disorder: Problem details: Hold diazepam while receiving opioids. Status: Acute Subjective Time Seen by Provider: 07:57 Date Seen: 01/15/24 Interval history: Niya expresses trepidation about having surgery, but she knows it needs to be done. She denies CP, palpitations or SOB. Pain in hip is minimal. Exam Narrative: Exam Narrative: General: No acute distress. Sleeping, arousable, able to converse without falling back asleep, oriented x3. Mild pallor. No jaundice. Oropharynx: Clear. Mucous membranes moist. Cardiovascular: Regular rate and rhythm. No murmurs, gallops, or rubs. Respiratory: Clear to auscultation bilaterally. No wheezes or crackles. Abdomen: Bowel sounds present. Soft, nondistended, nontender. Extremities: Right hip is without ecchymosis or deformity. No pedal edema. Const: Vital Signs, click to edit/add: Vital Signs - 24 hr 01/14/24 08:35 01/14/24 08:47 01/14/24 09:00 Temperature 97.5 F L Pulse Rate 107 H 101 H Pulse Rate [Pulse Oximeter] 111 H Pulse Rate [Right Pulse Oximeter] Respiratory Rate 20 Blood Pressure Blood Pressure [Le ft Arm] Blood Pressure [Le ft Upper Arm] 160/84 H Pulse Oximetry 96 96 95 Oxygen Delivery Me thod Room Air 01/14/24 09:01 01/14/24 09:02 01/14/24 09:15 Temperature Pulse Rate 107 H 115 H 113 H Pulse Rate [Pulse Oximeter] Pulse Rate [Right Pulse Oximeter] Respiratory Rate Blood Pressure 143/73 H Blood Pressure [Le ft Arm] Blood Pressure [Le ft Upper Arm] Pulse Oximetry 94 94 [facility] 01/14/24 09:21 01/14/24 09:30 01/14/24 09:41 Temperature Pulse Rate 108 H 116 H 101 H Pulse Rate [Pulse Oximeter] Pulse Rate [Right Pulse Oximeter] Respiratory Rate Blood Pressure 144/59 H 147/61 H Blood Pressure [Le ft Arm] Blood Pressure [Le ft Upper Arm] Pulse Oximetry 95 93 93 [facility] 01/14/24 09:45 01/14/24 10:00 01/14/24 10:01 Temperature Pulse Rate 112 H 87 90 Pulse Rate [Pulse Oximeter] Pulse Rate [Right Pulse Oximeter] Respiratory Rate Blood Pressure 98/43 L Blood Pressure [Le ft Arm] Blood Pressure [Le ft Upper Arm] Pulse Oximetry 94 94 95 [facility] 01/14/24 10:15 01/14/24 10:21 01/14/24 10:22 Temperature Pulse Rate 102 H 93 103 H Pulse Rate [Pulse Oximeter] Pulse Rate [Right Pulse Oximeter] Respiratory Rate 16 Blood Pressure 124/61 Blood Pressure [Le ft Arm] Blood Pressure [Le ft Upper Arm] Pulse Oximetry 94 95 94 [facility] 01/14/24 10:53 01/14/24 11:00 01/14/24 11:01 Temperature Pulse Rate 114 H 110 H 105 H Pulse Rate [Pulse Oximeter] Pulse Rate [Right Pulse Oximeter] Respiratory Rate Blood Pressure 117/62 Blood Pressure [Le ft Arm] Blood Pressure [Le ft Upper Arm] Pulse Oximetry 93 96 94 [facility] 01/14/24 11:15 01/14/24 11:21 01/14/24 11:30 Temperature Pulse Rate 116 H 119 H 114 H Pulse Rate [Pulse Oximeter] Pulse Rate [Right Pulse Oximeter] Respiratory Rate Blood Pressure 118/64 Blood Pressure [Le ft Arm] Blood Pressure [Le ft Upper Arm] Pulse Oximetry 96 95 95 [facility] 01/14/24 11:41 01/14/24 11:45 01/14/24 12:00 Temperature Pulse Rate 111 H 108 H 107 H Pulse Rate [Pulse Oximeter] Pulse Rate [Right Pulse Oximeter] Respiratory Rate Blood Pressure 108/72 Blood Pressure [Le ft Arm] Blood Pressure [Le ft Upper Arm] Pulse Oximetry 96 94 95 [facility] 01/14/24 12:01 01/14/24 12:11 01/14/24 12:13 Temperature Pulse Rate 102 H 98 107 H Pulse Rate [Pulse Oximeter] Pulse Rate [Right Pulse Oximeter] Respiratory Rate Blood Pressure 107/63 141/55 H Blood Pressure [Le ft Arm] Blood Pressure [Le ft Upper Arm] Pulse Oximetry 96 94 96 [facility] 01/14/24 12:15 01/14/24 12:20 01/14/24 12:30 Temperature Pulse Rate 100 97 103 H Pulse Rate [Pulse Oximeter] Pulse Rate [Right Pulse Oximeter] Respiratory Rate Blood Pressure 124/92 H Blood Pressure [Le ft Arm] Blood Pressure [Le ft Upper Arm] Pulse Oximetry 94 92 92 [facility] 01/14/24 12:31 01/14/24 12:41 01/14/24 12:45 Temperature Pulse Rate 106 H 81 92 Pulse Rate [Pulse Oximeter] Pulse Rate [Right Pulse Oximeter] Respiratory Rate 16 Blood Pressure 132/72 124/67 Blood Pressure [Le ft Arm] Blood Pressure [Le ft Upper Arm] Pulse Oximetry 92 95 94 [facility] 01/14/24 13:00 01/14/24 13:02 01/14/24 13:11 Temperature Pulse Rate 92 102 H 91 Pulse Rate [Pulse Oximeter] Pulse Rate [Right Pulse Oximeter] Respiratory Rate Blood Pressure 109/59 L 138/66 Blood Pressure [Le ft Arm] Blood Pressure [Le ft Upper Arm] Pulse Oximetry 92 94 [facility] 01/14/24 13:15 01/14/24 13:21 01/14/24 13:30 Temperature Pulse Rate 94 97 93 Pulse Rate [Pulse Oximeter] Pulse Rate [Right Pulse Oximeter] Respiratory Rate Blood Pressure 137/68 Blood Pressure [Le ft Arm] Blood Pressure [Le ft Upper Arm] Pulse Oximetry 94 93 94 [facility] 01/14/24 13:31 01/14/24 13:41 01/14/24 13:45 Temperature Pulse Rate 97 89 94 Pulse Rate [Pulse Oximeter] Pulse Rate [Right Pulse Oximeter] Respiratory Rate Blood Pressure 139/64 134/68 Blood Pressure [Le ft Arm] Blood Pressure [Le ft Upper Arm] Pulse Oximetry 94 94 92 [facility] 01/14/24 13:51 01/14/24 14:00 01/14/24 14:01 Temperature Pulse Rate 93 94 96 Pulse Rate [Pulse Oximeter] Pulse Rate [Right Pulse Oximeter] Respiratory Rate Blood Pressure 136/58 L 144/68 H Blood Pressure [Le ft Arm] Blood Pressure [Le ft Upper Arm] Pulse Oximetry 94 93 92 [facility] 01/14/24 14:11 01/14/24 14:15 01/14/24 14:21 Temperature Pulse Rate 94 96 98 Pulse Rate [Pulse Oximeter] Pulse Rate [Right Pulse Oximeter] Respiratory Rate 16 Blood Pressure 138/62 152/66 H Blood Pressure [Le ft Arm] Blood Pressure [Le ft Upper Arm] Pulse Oximetry 92 93 94 [facility] 01/14/24 14:30 01/14/24 14:31 01/14/24 14:41 Temperature Pulse Rate 97 101 H 97 Pulse Rate [Pulse Oximeter] Pulse Rate [Right Pulse Oximeter] Respiratory Rate Blood Pressure 140/60 H 133/64 Blood Pressure [Le ft Arm] Blood Pressure [Le ft Upper Arm] Pulse Oximetry 93 92 90 [facility] 01/14/24 15:25 01/14/24 15:25 01/14/24 16:46 Temperature 99 F Pulse Rate 95 Pulse Rate [Pulse Oximeter] Pulse Rate [Right Pulse Oximeter] Respiratory Rate 16 16 Blood Pressure Blood Pressure [Le ft Arm] 139/66 Blood Pressure [Le ft Upper Arm] Pulse Oximetry 91 91 Oxygen Delivery [facility] Room Air Room Air 01/14/24 19:00 01/14/24 23:00 01/14/24 23:00 Temperature 98.1 F Pulse Rate 92 Pulse Rate [Pulse Oximeter] Pulse Rate [Right Pulse Oximeter] 88 88 Respiratory Rate 16 18 Blood Pressure Blood Pressure [Le ft Arm] 134/54 L Blood Pressure [Le ft Upper Arm] Pulse Oximetry 89 [facility] 01/14/24 23:00 01/15/24 03:00 01/15/24 07:00 Temperature 98.1 F 97.6 F 98.6 F Pulse Rate Pulse Rate [Pulse Oximeter] Pulse Rate [Right Pulse Oximeter] 88 86 92 Respiratory Rate 18 16 20 Blood Pressure Blood Pressure [Le ft Arm] 132/61 135/65 157/74 H Blood Pressure [Le ft Upper Arm] Pulse Oximetry 91 91 95 Oxygen Delivery Me thod Room Air Room Air Room Air 01/15/24 07:00 Temperature Pulse Rate Pulse Rate [Pulse Oximeter] Pulse Rate [Right Pulse Oximeter] Respiratory Rate 20 Blood Pressure Blood Pressure [Le ft Arm] Blood Pressure [Le ft Upper Arm] Pulse Oximetry Oxygen Delivery Me thod Labs Labs: Laboratory Results - last 24 hr 01/14/24 01/14/24 01/15/24 08:52 11:20 06:04 WBC 14.77 H 14.50 H RBC 3.96 L 3.25 L Hgb 12.3 10.2 L Hct 37.4 30.7 L MCV 94 95 MCH 31 31 MCHC 33 33 RDW Coeff of [place] 12.4 12.9 Plt Count 318 246 Neut % (Auto) 83.6 H 82.3 H Lymph % (Auto) 9.6 L 7.6 L Rice % (Auto) 6.0 9.7 Eos % (Auto) 0.4 0.0 Baso % (Auto) 0.1 0.1 Neut # (Auto) 12.30 H 11.90 H Lymph # (Auto) 1.40 1.10 Rice # (Auto) 0.90 1.40 H Eos # (Auto) 0.10 0.00 Baso # (Auto) 0.00 0.00 Abs Immat Gran (auto) 0.00 0.00 Imm/Tot Granulo (auto) 0.3 0.3 Sodium 131 L 132 L Potassium 3.8 4.5 Chloride 97 103 Carbon Dioxide 23 25 Anion Gap 11 4 L BUN 18 22 Creatinine 0.5 0.6 Estimated Creat Clear 28.34 29.44 Estimated GFR 91 87 Glucose 191 H 150 H Hemoglobin A1c 5.5 Calcium 9.4 9.0 Total Bilirubin 0.3 AST 25 ALT 17 Alkaline Phosphatase 89 Troponin I < 0.01 L NT-Pro-B Natriuret Pep 3320 Total Protein 7.0 Albumin 4.1 Urine Color Yellow Urine Appearance Cloudy A Urine pH 6.5 Ur Specific [place] 1.025 Urine Protein 3+ A Urine Glucose (UA) Negative Urine Ketones Trace A Urine Blood Trace-intact A Urine Nitrite Positive A Urine Bilirubin Negative Urine Urobilinogen 0.2 Ur Leukocyte Esterase Trace A Urine RBC 2-5 A Urine WBC 2-5 Ur Squamous Epith Cells Few Urine Bacteria Many A
--- NOTE | 2024-01-15 08:54 | P.ORCN_ITS ---
History of Present Illness HPI Date Seen: 01/15/24 Chief complaint: altered mental status Narrative: Niya is a pleasant 88 year old female who immigrated from [place] and is currently living with a friend. She was admitted to the hospital 01/14/2024 for evaluation treatment of injuries related to a fall at home. She was walking down the stairs at home when she missed the last step falling and injuring her right hip. She reports no other injuries. She did not hit her head. She did n ot lose consciousness. She was able to pull herself back up under the steps but unable to stand and walk. Her roommate called 911. She reports community ambulation without assistive device. She lives independently. [facility] Medical History Generalized anxiety disorder ?F41.1 - Generalized anxiety disorder (ICD-10) Hypertension ?I10 - Essential (primary) hypertension (ICD-10) Ulcerative colitis ?K51.90 - Ulcerative colitis, unspecified, without complications (ICD-10) Atrial fibrillation ?I48.91 - Unspecified atrial fibrillation (ICD-10) Surgical History History of colonoscopy ?Z98.890 - Other specified postprocedural states (ICD-10) Family History Father Heart disease Sister Heart disease Brother Stroke Mother Stroke Social History Narrative: She lives in her own home with a 2 story building. She lives on the top floor having to walk up a whole flight of stairs to get to where she lives. She has a female housemate who lives on the lower level. She is originally from [place] and moved to the [place] about 40 years ago. She is now planning to move back to [place] with her family. Her healthcare power of prosecuting attorney is Robinson Rogers, her roommate and friend. Code status is full. She does not smoke and she does not drink. What is your current living situation?: I presently have a place to live Problems where you live: no known problems Problems where you live details: no known problems In the past 12 months, utilities in danger of being shut off: no In past 12 months, lack of transportation kept you from medical appts, meetings, work, or getting things needed for daily living: no In the past 12 mos, have been you worried that your food would run out before you had money to buy more?: never true In the past 12 mos, the food you bought just didn't last and you didn't have money to buy more?: never true Highest level of school completed/degree received: high school graduate Smoking Status: Never smoker How often do you have a drink containing alcohol: never AUDIT-C Alcohol total score: 0 Non-prescribed substance use: denies use Caffeine: Yes How often does anyone, including family, friends and others, physically hurt you : never How often does anyone, including family, friends and others, insult or talk down to you: never How often does anyone, including family, friends and others, threaten you with harm: never How often does anyone, including family, friends and others, scream or curse at you: never service: No Meds Home Medications and Allergies Home Medications ?Medication ?Instructions ?Recorded ?Confirmed ?Type amlodipine 10 mg tablet 10 mg PO DAILY 01/14/24 01/14/24 History atenolol 25 mg tablet 25 mg PO DAILY 01/14/24 01/14/24 History diazepam 5 mg tablet 5 mg PO DAILY PRN 01/14/24 01/14/24 History olmesartan 40 mg tablet 40 mg PO DAILY 01/14/24 01/14/24 History Allergies Allergy/AdvReac Type Severity Reaction Status Date / Time No Known Drug Allergies Allergy Verified 01/14/24 08:34 Ortho Exam Narrative Exam Narrative: She is alert and oriented x3. No acute distress. Lying supine in hospital bed today. Cooperative with the exam. Exam of the right hip shows no erythema, induration, or other cutaneous changes. Nontender to palpation around the hip itself today, but does have pain with any hip or knee range of motion. Neurologic intact superficial and deep peroneal as well as plantar distribution to sensory light touch and motor function. 2+ DP and PT pulse. Const Vital Signs, click to edit/add: Vital Signs - 24 hr 01/14/24 09:00 01/14/24 09:01 01/14/24 09:02 Temperature Pulse Rate 101 H 107 H 115 H Pulse Rate [Right Pulse Oximeter] Respiratory Rate Blood Pressure 143/73 H Blood Pressure [Left Arm] Pulse Oximetry 95 94 94 Oxygen Delivery Method 01/14/24 09:15 01/14/24 09:21 01/14/24 09:30 Temperature Pulse Rate 113 H 108 H 116 H Pulse Rate [Right Pulse Oximeter] Respiratory Rate Blood Pressure 144/59 H Blood Pressure [Left Arm] Pulse Oximetry 95 95 93 Oxygen Delivery Method 01/14/24 09:41 01/14/24 09:45 01/14/24 10:00 Temperature Pulse Rate 101 H 112 H 87 Pulse Rate [Right Pulse Oximeter] Respiratory Rate Blood Pressure 147/61 H Blood Pressure [Left Arm] Pulse Oximetry 93 94 94 Oxygen Delivery Method 01/14/24 10:01 01/14/24 10:15 01/14/24 10:21 Temperature Pulse Rate 90 102 H 93 Pulse Rate [Right Pulse Oximeter] Respiratory Rate Blood Pressure 98/43 L 124/61 Blood Pressure [Left Arm] Pulse Oximetry 95 94 95 Oxygen Delivery Method 01/14/24 10:22 01/14/24 10:53 01/14/24 11:00 Temperature Pulse Rate 103 H 114 H 110 H Pulse Rate [Right Pulse Oximeter] Respiratory Rate 16 Blood Pressure Blood Pressure [Left Arm] Pulse Oximetry 94 93 96 Oxygen Delivery Method 01/14/24 11:01 01/14/24 11:15 01/14/24 11:21 Temperature Pulse Rate 105 H 116 H 119 H Pulse Rate [Right Pulse Oximeter] Respiratory Rate Blood Pressure 117/62 118/64 Blood Pressure [Left Arm] Pulse Oximetry 94 96 95 Oxygen Delivery Method 01/14/24 11:30 01/14/24 11:41 01/14/24 11:45 Temperature Pulse Rate 114 H 111 H 108 H Pulse Rate [Right Pulse Oximeter] Respiratory Rate Blood Pressure 108/72 Blood Pressure [Left Arm] Pulse Oximetry 95 96 94 Oxygen Delivery Method 01/14/24 12:00 01/14/24 12:01 01/14/24 12:11 Temperature Pulse Rate 107 H 102 H 98 Pulse Rate [Right Pulse Oximeter] Respiratory Rate Blood Pressure 107/63 Blood Pressure [Left Arm] Pulse Oximetry 95 96 94 Oxygen Delivery Method 01/14/24 12:13 01/14/24 12:15 01/14/24 12:20 Temperature Pulse Rate 107 H 100 97 Pulse Rate [Right Pulse Oximeter] Respiratory Rate Blood Pressure 141/55 H 124/92 H Blood Pressure [Left Arm] Pulse Oximetry 96 94 92 Oxygen Delivery Method 01/14/24 12:30 01/14/24 12:31 01/14/24 12:41 Temperature Pulse Rate 103 H 106 H 81 Pulse Rate [Right Pulse Oximeter] Respiratory Rate Blood Pressure 132/72 124/67 Blood Pressure [Left Arm] Pulse Oximetry 92 92 95 Oxygen Delivery Method 01/14/24 12:45 01/14/24 13:00 01/14/24 13:02 Temperature Pulse Rate 92 92 102 H Pulse Rate [Right Pulse Oximeter] Respiratory Rate 16 Blood Pressure 109/59 L Blood Pressure [Left Arm] Pulse Oximetry 94 92 Oxygen Delivery Method 01/14/24 13:11 01/14/24 13:15 01/14/24 13:21 Temperature Pulse Rate 91 94 97 Pulse Rate [Right Pulse Oximeter] Respiratory Rate Blood Pressure 138/66 137/68 Blood Pressure [Left Arm] Pulse Oximetry 94 94 93 Oxygen Delivery Method 01/14/24 13:30 01/14/24 13:31 01/14/24 13:41 Temperature Pulse Rate 93 97 89 Pulse Rate [Right Pulse Oximeter] Respiratory Rate Blood Pressure 139/64 134/68 Blood Pressure [Left Arm] Pulse Oximetry 94 94 94 Oxygen Delivery Method 01/14/24 13:45 01/14/24 13:51 01/14/24 14:00 Temperature Pulse Rate 94 93 94 Pulse Rate [Right Pulse Oximeter] Respiratory Rate Blood Pressure 136/58 L Blood Pressure [Left Arm] Pulse Oximetry 92 94 93 Oxygen Delivery Method 01/14/24 14:01 01/14/24 14:11 01/14/24 14:15 Temperature Pulse Rate 96 94 96 Pulse Rate [Right Pulse Oximeter] Respiratory Rate Blood Pressure 144/68 H 138/62 Blood Pressure [Left Arm] Pulse Oximetry 92 92 93 Oxygen Delivery Method 01/14/24 14:21 01/14/24 14:30 01/14/24 14:31 Temperature Pulse Rate 98 97 101 H Pulse Rate [Right Pulse Oximeter] Respiratory Rate 16 Blood Pressure 152/66 H 140/60 H Blood Pressure [Left Arm] Pulse Oximetry 94 93 92 Oxygen Delivery Method 01/14/24 14:41 01/14/24 15:25 01/14/24 15:25 Temperature 99 F Pulse Rate 97 Pulse Rate [Right Pulse Oximeter] Respiratory Rate 16 16 Blood Pressure 133/64 Blood Pressure [Left Arm] 139/66 Pulse Oximetry 90 91 91 Oxygen Delivery Method Room Air Room Air 01/14/24 16:46 01/14/24 19:00 01/14/24 23:00 Temperature 98.1 F Pulse Rate 95 92 Pulse Rate [Right Pulse Oximeter] 88 Respiratory Rate 16 Blood Pressure Blood Pressure [Left Arm] 134/54 L Pulse Oximetry 89 Oxygen Delivery Method Room Air 01/14/24 23:00 01/14/24 23:00 01/15/24 03:00 Temperature 98.1 F 97.6 F Pulse Rate Pulse Rate [Right Pulse Oximeter] 88 88 86 Respiratory Rate 18 18 16 Blood Pressure Blood Pressure [Left Arm] 132/61 135/65 Pulse Oximetry 91 91 Oxygen Delivery Method Room Air Room Air 01/15/24 07:00 01/15/24 07:00 Temperature 98.6 F Pulse Rate Pulse Rate [Right Pulse Oximeter] 92 Respiratory Rate 20 20 Blood Pressure Blood Pressure [Left Arm] 157/74 H Pulse Oximetry 95 Oxygen Delivery Method Room Air Results Labs Labs: Laboratory Results - last 48 hr 01/14/24 01/14/24 01/15/24 08:52 11:20 06:04 WBC 14.77 H 14.50 H RBC 3.96 L 3.25 L Hgb 12.3 10.2 L Hct 37.4 30.7 L MCV 94 95 MCH 31 31 MCHC 33 33 RDW Coeff of [place] 12.4 12.9 Plt Count 318 246 Neut % (Auto) 83.6 H 82.3 H Lymph % (Auto) 9.6 L 7.6 L [place] % (Auto) 6.0 9.7 Eos % (Auto) 0.4 0.0 Baso % (Auto) 0.1 0.1 Neut # (Auto) 12.30 H 11.90 H Lymph # (Auto) 1.40 1.10 [place] # (Auto) 0.90 1.40 H Eos # (Auto) 0.10 0.00 Baso # (Auto) 0.00 0.00 Abs Immat Gran (auto) 0.00 0.00 Imm/Tot Granulo (auto) 0.3 0.3 Sodium 131 L 132 L Potassium 3.8 4.5 Chloride 97 103 Carbon Dioxide 23 25 Anion Gap 11 4 L BUN 18 22 Creatinine 0.5 0.6 Estimated Creat Clear 28.34 29.44 Estimated GFR 91 87 Glucose 191 H 150 H Hemoglobin A1c 5.5 Calcium 9.4 9.0 Total Bilirubin 0.3 AST 25 ALT 17 Alkaline Phosphatase 89 Troponin I < 0.01 L NT-Pro-B Natriuret Pep 3320 Total Protein 7.0 Albumin 4.1 Urine Color Yellow Urine Appearance Cloudy A Urine pH 6.5 Ur Specific [place] 1.025 Urine Protein 3+ A Urine Glucose (UA) Negative Urine Ketones Trace A Urine Blood Trace-intact A Urine Nitrite Positive A Urine Bilirubin Negative Urine Urobilinogen 0.2 Ur Leukocyte Esterase Trace A Urine RBC 2-5 A Urine WBC 2-5 Ur Squamous Epith Cells Few Urine Bacteria Many A Diagnostic results Additional Comments: Radiographs of AP pelvis, AP and cross-table lateral view right hip from [facility] dated 01/14/2024 were ordered by different provider and reviewed by me. This demonstrates a right displaced femoral neck fracture with shortening to the femur, external rotation, and varus angulation. The hip joint space is otherwise well preserved. Generalized stove pipe proximal femoral anatomy. Also, lumbar degenerative disc disease incidentally noted of the visualized L3- S1 lumbar spine levels with osteophyte formation, disc height narrowing, and subchondral/endplate sclerosis. Assessment and Plan Assessment and plan (1) Closed fracture of right hip: Problem comment: Pending surgical treatment. No further workup needed prior to surgery, okay to get echocardiogram after surgery. Status: Acute Total time spent: Total time spent is greater than 50% in coordination of care (as documented) at patient's floor/unit and/or counseling patient: (2) Atrial fibrillation with rapid ventricular response: Problem comment: Had an episode of atrial fibrillation with RVR on admission but this is now resolved and she is in normal sinus rhythm. Will obtain echo cardiogram. Recommend initiation of full dose anticoagulation postoperatively Status: Acute Total time spent: Total time spent is greater than 50% in coordination of care (as documented) at patient's floor/unit and/or counseling patient: (3) Urinary tract infection: Problem comment: Possible UTI based on urinalysis. Not currently symptomatic. Got 1 dose ceftriaxone. Marjorie op antibiotics with Ancef planned as well. Urine cultures in progress. Further antibiotics depending on clinical course and culture Status: Acute Total time spent: Total time spent is greater than 50% in coordination of care (as documented) at patient's floor/unit and/or counseling patient: (4) Hypertension: Problem comment: Continue home atenolol. Hold olmesartan and amlodipine Status: Acute Total time spent: Total time spent is greater than 50% in coordination of care (as documented) at patient's floor/unit and/or counseling patient: (5) Generalized anxiety disorder: Problem comment: Hold diazepam while receiving opioids. Status: Acute Total time spent: Total time spent is greater than 50% in coordination of care (as documented) at patient's floor/unit and/or counseling patient: Plan I had a good discussion with today with the patient. Helped her understand her pathology. In my opinion, as she was previously a community ambulator without assistive device, I do think surgery is indicated. This would be for a right hip bipolar hemiarthroplasty (cemented). We discussed risks (wound healing issues, infection, periprosthetic fracture, hip instability, in particular given her advanced age- subsequent lumbar spine pain, DVT/PE, GA, stroke, etc.), benefits, and alternatives. In fact, help her understand the pros and cons of surgical versus nonsurgical intervention. In my opinion, do think surgery outweighs the risks of nonsurgical route. She states understanding. She indeed elects to proceed with surgery. We will plan to do this this morning (01/15/2024). Following the surgery, I do think DVT prophylaxis will be important. I also communicated and coordinated care with both hospitalist team as well as Anesthesiology Department and team for the perioperative care of this patient.
[2024-01-15] MEDS: LACTATED RINGERS 1000 ML 1,000 ML 100 ML IV (11:43)
--- NOTE | 2024-01-15 12:09 | CRLHL7_ITS ---
For Patients: As a result of the Cures Act, medical imaging exams and procedure reports are released immediately into your electronic medical record. You may view this report before your referring provider. If you have questions, please contact your health care provider. Indication: POST OP DWAIN Technique: AP hip centered pelvis and lateral view right hip Findings/Impression: Hardware from a right bipolar arthroplasty is in satisfactory position. Bone alignment is normal. No sign of acute fracture. Postop changes are within normal limits. Dictated by Jason Elizondo MD @ 01/16/2024 6:31:54 AM (Electronically Signed)
[2024-01-15] MEDS: TRANEXAMIC ACID 100 MG/ML INJ 1000 MG IV (12:21)
[2024-01-15] MEDS: CEFAZOLIN 1 GM inj IVP (12:21)
--- NOTE | 2024-01-15 12:30 | P.NB_ITS ---
Nerve Block Nerve Block Time Seen by Provider: 12:13 Date Seen: 01/15/24 Type of block requested by surgeon for post-operative analgesia: EVIE/LFCN Side: right Time out performed: Yes Verification of patient name: Yes Verification of date of : Yes Site marking: site marked Name of person performing procedure: Gaurav Continuous monitoring Was continuous monitoring of O2 sat, B/P, quality assurance monitor chassis, recorded every 15 minutes?: Yes Procedure Checklist: sterile prep, needles and gloves Ultrasound guided. Images saved: Yes Medications given in 5ml increments after negative aspiration: Ropivicaine %: 0.5 mL: 30 Needle gauge: 20 Decadron (mg): 10 Precedex (mcg): 25 Patient tolerated procedure well: Yes Additional comments: Needle noted below psoas tendon needle noted adjacent to LFCN Block Charges Block Charge (with Pro Fee): Other Periph Nerve Block Use of Ultrasound Machine for Block: Yes- US Guidance/pain block
--- NOTE | 2024-01-15 12:30 | W.ANESCHARGE ---
Anesthesia Charges Start Date/Time Anesthesia Start Date: 01/15/24 Anesthesia Start Time: 11:43 Stop Date/Time Anesthesia Stop Date: 01/15/24 Anesthesia Stop Time: 14:51 Summary Extremes of Age - Over 70 or under 1: MDA
--- NOTE | 2024-01-15 13:37 | P.ORPRC_ITS ---
Procedure Note Date of procedure: 01/15/24 Procedure: PREOPERATIVE DIAGNOSIS: 1. Right femoral neck fracture, displaced, acute, closed POSTOPERATIVE DIAGNOSIS: 1. Right femoral neck fracture, displaced, acute, closed PROCEDURE: 1. Right hip bipolar hemiarthroplasty for femoral neck fracture SURGEON: Guanako Crawford MD. ENGINEERING AND SCIENTIFIC PROGRAMMER: Markus Stanton PA-C - Of note, an customer relations assistant was critical for this case to aid in patient positioning, tissue retraction, limb manipulation/positioning, hip reduction and dislocation, clearing of cement, and closure. ANESTHESIA: Spinal anesthetic IMPLANTS: [employer] [place] cemented stem (size 5 with standard neck); (+1.5) 28mm inner head diameter and 46 mm outer head diameter; 10 centralizer COMPLICATIONS: None evident INDICATIONS: The patient is a pleasant 88-year-old female who has experienced severe right hip pain after a fall on the 01/14/2024. She was going down the stairs and unfortunately missed the last step landing on her right hip. Unable to bear weight. Presented to [facility]. X-rays revealed a right femoral neck fracture that was displaced. After medical evaluation found the patient to be in optimal condition, surgery was recommended for stabilization of the hip. DESCRIPTION OF PROCEDURE: Following a thorough discussion of risks, benefits, and alternatives consent was obtained and the right hip was marked. The patient was brought to the operating room and placed supine on the operating table. Induction of anesthesia was undertaken. They were then positioned lateral decubitus with the operative side up. 1 g IV Ancef and 1 g tranexamic acid was administered within 1 hr of incision preoperatively. Proper time-out was performed identifying proper patient, site, and procedure. The operative extremity was prepped and draped in the appropriate sterile fashion using ChloraPrep with head in neutral alignment in all bony prominences well padded and an axillary roll placed. A curvilinear longitudinal incision was made in line with the posterior 1/3rd of the greater trochanter, fairly equally divided proximal and distal to the greater trochanter tip. Sharp incision through skin and Bovie cautery through subcutaneous tissue allowed hemostasis to be achieved. The ITB band was identified, divided in line with its fibers as was the gluteal fascia. The deeper muscle fibers were bluntly divided. The greater trochanteric bursa was excised, and the short external rotators were then released from their insertion including the piriformis. These were tagged for later repair. Additionally the capsule was released in an inverted T-fashion. The fracture hematoma was immediately encountered and evacuated. Capsule was released down to the lesser trochanter. The femoral head was removed, and sized out to be approximately a 46 mm outer head. At this stage, the femoral neck was freshened with a sagittal saw with caution taken to avoid injury to the greater trochanter. The femur was prepared initially with a box osteotome and hand reamers followed by surgical broaches up to the size noted above. Various head sizes were then trialed and found to have an excellent fit/stability with the implants noted above. At this stage, thorough irrigation normal saline was performed, and cement was mixed on back table. The cement restrictor was placed deep after thorough irrigation and preparation of the femoral canal, followed by cementing, pressurizing, and stem insertion while holding it in valgus to avoid a varus position. Trial heads were again inserted and found to have excellent stability and length when compared to the contralateral lower extremities. Thus, the real heads were open, and inserted. Thorough irrigation with normal saline was then performed followed by closure of the capsule followed by the short external rotators through drill holes in the greater trochanter with #1 PDS. Thorough irrigation was again performed, and closure of the ITB band was completed with #1 Stratafix. Subcutaneous and subcuticular closure was closed with 2-O Vicryl and 4 -0 Monocryl, respectively. Dressings were applied, and the patient was awoken from anesthesia and transferred the PACU in stable condition. PLAN: 1. Weight bear as tolerated on the operative extremity - posterior hip precautions. 2. 23 hr perioperative antibiotics. 3. Ice. 4. PT/OT consults for ambulation assistance/mobility education - posterior hip precautions. 5. Social work consult for discharge planning. 6. Analgesics PRN 7. DVT prophylaxis with at SCDs, Michael Hose, and apixaban, per the hospitalist's recommendation.
--- NOTE | 2024-01-15 13:38 | PC.NURSE ---
End of Shift Note: Patient went down for surgery around mid morning to have her fractured hip fixed. Appears alert and orientated before surgery. Her roommate has called x1 for an update and did let her know that she is currently in surgery and awaiting her return. Unsure if will need a SNF placement for rehab after surgery. Will continue to monitor until next shift arrives.
[2024-01-15] MEDS: LACTATED RINGERS 1000 ML 1,000 ML 35 ML IV (14:14)
--- NOTE | 2024-01-15 14:16 | P.ANES_ITS ---
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
[2024-01-15] MEDS: fentaNYL 100 MCG/2 ML inj 50 MCG IVP ×2 (14:25→14:35)
[2024-01-15] MEDS: LABETALOL HCL 5 MG/ML inj IVP ×2 (14:40→14:48)
[2024-01-15] MEDS: OXYCODONE 5 MG TABLET PO (17:13)
[2024-01-15] MEDS: diazePAM 5 MG TABLET 2.5 MG PO (17:13)
[2024-01-15] MEDS: CEFAZOLIN 1 GM in 0.9 % SODIUM CHLORIDE Mini-bag 100 ML IVPB (18:04)
--- NOTE | 2024-01-15 23:41 | PC.NURSE ---
Shortly after returning to the floor from surgery, the patient pulled out her Menard catheter with baloon intact - as well as her IV. IV was replaced about an hour later and the patient pulled it out again. She did receive one dose of post-op Ancef. Taking PRN oxycodone for pain in her right hip. Ice to hip. Dressing is clean dry and intact. Pt has tele on and it shows NSR. Will continue to monitor.
[2024-01-16] VITALS (8 sets, daily range): BP systolic 134–180; BP diastolic 58–85; PULSE 85–102; RESP 14–18; TEMP 36.3–37.1; O2SAT 91–94
[2024-01-16] MEDS: OXYCODONE 5 MG TABLET PO ×6 (01:22→23:06)
--- NOTE | 2024-01-16 07:01 | PC.NURSE ---
Pt is alert and oriented x3. Afebrile. Pt reports 2/10 pain in right hip, pain managed with PRN medications. Pt?s right hip dressing is CDI. Pt is up A1 with walker and gait belt, voiding, and tolerating regular diet. Pt slept throughout most of night. ?
[2024-01-16 07:07] LABS: Hematocrit 28.1 % (33.0-51.0); Hemoglobin* 9.4 gm/dL (12.0-16.0); Mean Corpuscular HGB Conc 34 gm/dL (32-36); Mean Corpuscular Hemoglobin 32 pg (26-34); Mean Corpuscular Volume 95 fL (80-100); Platelet Count* 217 K/uL (140-440); Red Blood Count 2.96 m/uL (4.00-5.20); White Blood Count* 19.17 K/uL (4.50-11.00)
[2024-01-16 07:34] LABS: Slide Review Reflex No
[2024-01-16] MEDS: SENNOSIDES 1 TAB TABLET 2 TAB PO ×2 (08:44→20:18)
[2024-01-16] MEDS: APIXABAN 5 MG TABLET 2.5 MG PO ×2 (08:45→20:18)
[2024-01-16] MEDS: CEFAZOLIN 1 GM in 0.9 % SODIUM CHLORIDE Mini-bag 100 ML IVPB ×2 (09:58→18:05)
--- NOTE | 2024-01-16 14:06 | PC.SOCIAL ---
Discharge planning- Per therapy, patient will need SNF for rehab. Met with patient and discussed recommendations and discharge plans. Patient is agreeable to SNF. Patient lives at home with a friend. Patient and friend do not drive, they use taxi services typically. Patient is ok with discussing discharge plans with her friend, Robinson Rogers, whom is listed in patient's contacts in chart. Contacted the following SNF's for possible placement. 1. [facility]- Secure e-mailed referral to Wen Long in admissions. 2. [facility]- Secure e-mailed referral to Marleny tamayo in admissions. 3. [facility]- Secure e-mailed referral to [place] in admissions. Social work will continue to follow up on discharge plans as needed.
--- NOTE | 2024-01-16 15:25 | PM.IMPN1 ---
Progress Note: A&P Assessment and plan (1) S/P hip hemiarthroplasty: Problem details: - 01/15/24 Right hip for femoral neck fracture, Dr. Crawford - routine postop cares - will be on therapeutic doses of anticoagulation in light of AFib Status: Acute (2) Atrial fibrillation with rapid ventricular response: Problem details: - Had an episode of atrial fibrillation with RVR on admission but this is now resolved and she is in normal sinus rhythm. - ECHO 01/15/24 okay - started full-dose Eliquis this morning, adjusted for weight and age, continue to monitor hemoglobin daily Status: Acute (3) Urinary tract infection: Problem details: Possible UTI based on urinalysis. Not currently symptomatic. Got 1 dose ceftriaxone. Marjorie op antibiotics with Ancef planned as well. Urine cultures in progress, preliminary is Gram-negative rods. Further antibiotics depending on clinical course and culture Status: Acute (4) Hypertension: Problem details: Continue home atenolol. Restart olmesartan and amlodipine Status: Acute (5) Generalized anxiety disorder: Problem details: Hold diazepam while receiving opioids. Status: Acute Subjective Time Seen by Provider: 07:30 Date Seen: 01/16/24 Interval history: Linda feels okay. She tells me her feet hurt and she could use a pain killer. She also c/o no BM for several days. Exam Narrative: Exam Narrative: General: No acute distress. Awake, alert, oriented. Mild pallor. No jaundice. Oropharynx: Clear. Mucous membranes moist. Cardiovascular: Regular rate and rhythm. No murmurs, gallops, or rubs. Respiratory: Clear to auscultation bilaterally. No wheezes or crackles. Abdomen: Bowel sounds present. Soft, nondistended, nontender. Extremities: Right hip bandage is clean, dry, and intact. No pedal edema. Const: Vital Signs, click to edit/add: Vital Signs - 24 hr 01/15/24 15:35 01/15/24 15:45 01/15/24 16:00 Temperature 97.6 F 97 F L Pulse Rate 84 84 114 H Pulse Rate [Right Pulse Oximeter] Respiratory Rate 16 16 16 Blood Pressure 174/75 H 175/80 H 190/170 H Blood Pressure [Le ft Arm] Pulse Oximetry 86 L 95 96 Oxygen Delivery Me thod Room Air Nasal Cannula Nasal Cannula Oxygen Flow Rate 2 2 01/15/24 16:15 01/15/24 16:45 01/15/24 17:15 Temperature 97.6 F Pulse Rate 97 96 84 Pulse Rate [Right Pulse Oximeter] Respiratory Rate 16 16 16 Blood Pressure 181/82 H 162/83 H 165/74 H Blood Pressure [Le ft Arm] Pulse Oximetry 90 91 91 Oxygen Delivery Me thod Room Air Room Air Room Air Oxygen Flow Rate 01/15/24 18:00 01/15/24 19:00 01/15/24 20:00 Temperature 98.2 F Pulse Rate 87 91 99 Pulse Rate [Right Pulse Oximeter] Respiratory Rate 16 16 16 Blood Pressure 163/74 H 160/68 H 156/74 H Blood Pressure [Le ft Arm] Pulse Oximetry 91 91 91 Oxygen Delivery Me od Room Air Room Air Room Air Oxygen Flow Rate 01/16/24 01:19 01/16/24 04:41 01/16/24 07:51 Temperature 97.4 F L 97.5 F L Pulse Rate 88 Pulse Rate [Right Pulse Oximeter] 91 89 Respiratory Rate 16 16 Blood Pressure Blood Pressure [Le ft Arm] 152/72 H 134/64 Pulse Oximetry 91 92 Oxygen Delivery Me od Room Air Room Air Oxygen Flow Rate 01/16/24 07:55 01/16/24 07:55 01/16/24 10:53 Temperature 97.5 F L 98 F Pulse Rate Pulse Rate [Right Pulse Oximeter] 85 92 Respiratory Rate 14 14 18 Blood Pressure Blood Pressure [Le ft Arm] 141/58 H 180/85 H Pulse Oximetry 93 93 93 Oxygen Delivery Me thod Room Air Room Air Room Air Oxygen Flow Rate Labs Labs: Laboratory Results - last 24 hr 01/16/24 06:19 WBC 19.17 H RBC 2.96 L Hgb 9.4 L Hct 28.1 L MCV 95 MCH 32 MCHC 34 Plt Count 217
--- NOTE | 2024-01-16 16:33 | P.ORPN_ITS ---
Subjective Subjective Date Seen: 01/16/24 Principal diagnosis: POD 1 right bipolar hemiarthroplasty Interval history: Patient reports doing okay, but the pain is rough. Acute events overnight include pulling out her Menard catheter and IV catheter twice. She has not received 2 of the 3 doses postoperative IV antibiotics. She does not recall these events, but feels bad about them. Pain managed with scheduled and PRN medications, ice. DVT prophylaxis: Apixaban 2.5 mg twice daily, bilateral knee high Michael stockings, SCDs, walking. Denies fevers, chills, aches, N/V, CP, SOB/ORTEGA, or lightheadedness. Reports passing flatus. Ortho Exam Narrative Exam Narrative: -Patient appears comfortable in recliner; no apparent acute distress -Alert and oriented times 3 -Operative hip mildly swollen; soft tissues supple; no obvious erythema. No significant ecchymosis. Warmth appropriate -Surgical dressing clean, dry, intact; no obvious drainage, no erythematous str eaking peripheral to the bandage -Bilateral calves soft and supple; no significant swelling, edema, tenderness, erythema, discoloration, warmth, or palpable cords -2+ DP/PT pulses, intact dermatomes and myotomes distally (5/5 strength). Const Vital Signs, click to edit/add: Vital Signs - 24 hr 01/15/24 16:45 01/15/24 17:15 01/15/24 18:00 Temperature 97.6 F Pulse Rate 96 84 87 Pulse Rate [Right Pulse Oximeter] Respiratory Rate 16 16 16 Blood Pressure 162/83 H 165/74 H 163/74 H Blood Pressure [Left Arm] Pulse Oximetry 91 91 91 Oxygen Delivery Method Room Air Room Air Room Air 01/15/24 19:00 01/15/24 20:00 01/16/24 01:19 Temperature 98.2 F 97.4 F L Pulse Rate 91 99 Pulse Rate [Right Pulse Oximeter] 91 Respiratory Rate 16 16 16 Blood Pressure 160/68 H 156/74 H Blood Pressure [Left Arm] 152/72 H Pulse Oximetry 91 91 91 Oxygen Delivery Method Room Air Room Air Room Air 01/16/24 04:41 01/16/24 07:51 01/16/24 07:55 Temperature 97.5 F L Pulse Rate 88 Pulse Rate [Right Pulse Oximeter] 89 Respiratory Rate 16 14 Blood Pressure Blood Pressure [Left Arm] 134/64 Pulse Oximetry 92 93 Oxygen Delivery Method Room Air Room Air 01/16/24 07:55 01/16/24 10:53 01/16/24 15:00 Temperature 97.5 F L 98 F Pulse Rate 97 Pulse Rate [Right Pulse Oximeter] 85 92 Respiratory Rate 14 18 Blood Pressure Blood Pressure [Left Arm] 141/58 H 180/85 H Pulse Oximetry 93 93 Oxygen Delivery Method Room Air Room Air 01/16/24 15:00 01/16/24 15:00 Temperature 98.7 F Pulse Rate Pulse Rate [Right Pulse Oximeter] 92 Respiratory Rate 14 14 Blood Pressure Blood Pressure [Left Arm] 148/68 H Pulse Oximetry 94 94 Oxygen Delivery Method Room Air Room Air Assessment and Plan Assessment and plan (1) S/P hip hemiarthroplasty: Problem details: - 01/15/24 Right hip for femoral neck fracture, Dr. Crawford - routine postop cares - will be on therapeutic doses of anticoagulation in light of AFib (2.5 mg apixaban twice daily) Status: Acute Plan - Complete 23 hour perioperative antibiotics (spoke with nurse regarding this; they will re-establish IV access and give her 2 more doses of IV antibiotics - PT/OT consult for education and assistance. - Social work consult for discharge planning - anticipate SNF. - Prescribed analgesics as needed - DVT prophylaxis: Apixaban 2.5 mg twice daily, bilateral knee high Michael Hose stockings and SCDs - Anticipation is for discharge to SNF if the patient remains medically stable, pain is controlled, they are reasonably safe with mobilization, and a bed is available.
--- NOTE | 2024-01-16 18:53 | PC.NURSE ---
Shift Summary: Patient pleasant and cooperative. Up with 2 assist, walker and gait belt to bathroom. Vitals stable, denies SOB, rates pain 5-8/10 managed with PRN medication. Patient has been refusing ice over hip, dressing is C/D/I. New IV placed by Loly KOROMA, patient not seen trying to remove it today. Tolerating regular diet, denies nausea.
[2024-01-16] MEDS: SODIUM CHLORIDE 0.9 % (FLUSH) 10 ML SYRINGE 5 ML IVF (20:20)
[2024-01-17] VITALS (8 sets, daily range): BP systolic 105–163; BP diastolic 50–98; PULSE 60–118; RESP 16–18; TEMP 36.4–36.8; O2SAT 90–94
[2024-01-17] MEDS: HYDROmorphone 0.5 mg/0.5 ml inj IVP ×2 (01:09→08:00)
[2024-01-17] MEDS: SODIUM CHLORIDE 0.9 % (FLUSH) 10 ML SYRINGE 5 ML IVF ×3 (01:11→20:38)
--- NOTE | 2024-01-17 05:04 | PC.NURSE ---
[id number] Pt pain struggling with pain management, rating 9-10/10 during shift, when asked mild, moderate or severe pt will state mild and moderate. prn oral and 1x iv pain med administered. ambulating with walker, gb, 1A, up to recliner during the evening, she is tolerating activity fairly well. dressing to R hip C/D/I, ice applied to site during shift. posterior hip protocol followed. denies N/V, chest pain or headache.
[2024-01-17] MEDS: APIXABAN 5 MG TABLET 2.5 MG PO ×2 (08:33→20:38)
[2024-01-17] MEDS: AMLODIPINE 10 MG TABLET PO (08:33)
[2024-01-17] MEDS: SENNOSIDES 1 TAB TABLET 2 TAB PO ×2 (08:33→20:37)
[2024-01-17] MEDS: OLMESARTAN MEDOXOMIL 20 MG TABLET 40 MG PO (09:02)
[2024-01-17] MEDS: METOPROLOL TARTRATE 1 MG/ML inj 5 MG IVP (09:02)
[2024-01-17] MEDS: OXYCODONE 5 MG TABLET PO ×4 (09:02→22:47)
[2024-01-17] MEDS: METOPROLOL TARTRATE 25 MG TABLET PO ×2 (09:02→20:38)
[2024-01-17 09:09] LABS: Basophils Percent Auto 0.1 % (0.0-3.0); Eosinophils Percent Auto 0.5 % (0.0-7.0); Hemoglobin* 10.2 gm/dL (12.0-16.0); Immature Granulocytes Pct Auto 0.4 %; Lymphocytes Percent Auto 9.7 % (20-44); Mean Corpuscular HGB Conc 33 gm/dL (32-36); Mean Corpuscular Hemoglobin 31 pg (26-34); Mean Corpuscular Volume 94 fL (80-100); Monocytes Percent Auto 5.9 % (0.0-11.0); Neutrophils Percent Auto 83.4 % (42.0-72.0); Platelet Count* 225 K/uL (140-440); RDW Coefficient of Variation % 12.9 % (11.5-15.5)
[2024-01-17 09:10] LABS: Slide Review Reflex No
[2024-01-17 09:18] LABS: Chloride* 93 mmol/L (96-114); Sodium* 126 mmol/L (135-149)
[2024-01-17 09:19] LABS: Potassium* 4.1 mmol/L (3.6-5.1)
[2024-01-17 09:21] LABS: Anion Gap 4 mEq/L (7-15); Carbon Dioxide* 29 mmol/L (20-32); Creatinine* 0.5 mg/dL (0.5-1.5); Est. Creatinine Clearance* 30.47; Estimated Glomerular Filt Rate 91 ml/min
[2024-01-17 09:22] LABS: Blood Urea Nitrogen* 21 mg/dL (7-30); Calcium* 8.9 mg/dL (8.4-10.6); Glucose* 164 mg/dL (60-115)
--- NOTE | 2024-01-17 14:12 | PM.ORPN ---
Subjective Subjective Date Seen: 01/17/24 Principal diagnosis: POD 2 right bipolar hemiarthroplasty Interval history: Patient reports doing well. No acute events over night. She received the last 2 doses of IV antibiotics. Pain managed with scheduled and PRN medications, ice. DVT prophylaxis: Apixaban 2.5 mg twice daily, bilateral knee high Micheal stockings, SCDs, walking. Denies fevers, chills, aches, N/V, CP, SOB/ORTEGA, or lightheadedness. Walking to and from the bathroom went okay. Ortho Exam Narrative Exam Narrative: -Patient appears comfortable walking with nurse from bathroom to chair; no apparent acute distress -Alert and oriented times 3 -Operative hip mildly swollen; soft tissues supple; no obvious erythema. No notable ecchymosis. Warmth appropriate -Surgical dressing clean, dry, intact; no obvious drainage, no erythematous streaking peripheral to the bandage. 1 long edge of the bandage is starting to come off. -Bilateral calves soft and supple; no significant swelling, edema, tenderness, erythema, discoloration, warmth, or palpable cords -2+ DP/PT pulses, intact dermatomes and myotomes distally (5/5 strength). Const Vital Signs, click to edit/add: Vital Signs - 24 hr 01/16/24 15:00 01/16/24 15:00 01/16/24 15:00 Temperature 98.7 F Pulse Rate 97 Pulse Rate [Right Pulse Oximeter] 92 Respiratory Rate 14 14 Blood Pressure [Left Arm] 148/68 H Pulse Oximetry 94 94 Oxygen Delivery Method Room Air Room Air Oxygen Flow Rate Fraction of Inspired Oxygen 01/16/24 19:00 01/16/24 23:00 01/16/24 23:00 Temperature 97.9 F 97.3 F L Pulse Rate Pulse Rate [Right Pulse Oximeter] 102 H 101 H Respiratory Rate 16 16 16 Blood Pressure [Left Arm] 143/62 H 167/85 H Pulse Oximetry 93 92 92 Oxygen Delivery Method Room Air Room Air Room Air Oxygen Flow Rate 0 0 Fraction of Inspired Oxygen 01/16/24 23:00 01/17/24 03:00 01/17/24 07:00 Temperature 98.0 F 98.1 F Pulse Rate 101 H Pulse Rate [Right Pulse Oximeter] 115 H 105 H Respiratory Rate 16 16 Blood Pressure [Left Arm] 146/76 H 163/80 H Pulse Oximetry 92 93 Oxygen Delivery Method Room Air Room Air Oxygen Flow Rate Fraction of Inspired Oxygen 01/17/24 07:00 01/17/24 07:00 01/17/24 10:55 Temperature 98.3 F Pulse Rate Pulse Rate [Right Pulse Oximeter] 105 H 89 Respiratory Rate 16 16 16 Blood Pressure [Left Arm] 109/50 L Pulse Oximetry 93 90 Oxygen Delivery Method Room Air Room Air Oxygen Flow Rate 0 Fraction of Inspired Oxygen 100 Assessment and Plan Assessment and plan (1) S/P hip hemiarthroplasty: Problem details: - 01/15/24 Right hip for femoral neck fracture, Dr. Crawford - routine postop cares - will be on therapeutic doses of anticoagulation in light of AFib (2.5 mg apixaban twice daily) Status: Acute Plan - PT/OT consult for education and assistance. - Prescribed analgesics as needed - DVT prophylaxis: Apixaban 2.5 mg twice daily, bilateral knee high Michael Hose stockings and SCDs - Anticipation is for discharge to [facility], [facility] 01/19/2024 if the patient remains medically stable, pain is controlled, and they are safe with mobilization. - I spoke with patient's nurse, who placed a Tegaderm over the bandage for better security.
--- NOTE | 2024-01-17 15:48 | PC.SOCIAL ---
Discharge planning- Received a phone call from Marleny Seo in admissions at [facility]. [facility] Can accept patient for admissions for Monday morning. Met with patient and provided update. Patient would like to accept bed. Patient asks this worker to call her friend Robinson Rogers to discuss transportation. Phone call to patient's friend, Robinson Rogers, and provided update. Patient's friend informs that she does not drive, but informs that [facility] works in their home and provides them both transportation. Robinson provides this worker with a insurance case manager's phone number from [employer] [facility] which is Shireen at [phone]. Phone call to Shireen at [employer] [facility], provided update. Shireen informs that they likely can assist with a morning transport. Shireen will call this worker back with a pick-up time for Monday. Social Work will continue to follow up as needed.
--- NOTE | 2024-01-17 16:55 | P.IMPN_ITS ---
Progress Note: A&P Assessment and plan (1) S/P hip hemiarthroplasty: Problem details: - 01/15/24 Right hip for femoral neck fracture, Dr. Crawford - routine postop cares - on therapeutic anticoagulation in light of AFib (2.5 mg apixaban twice daily) Status: Acute (2) Atrial fibrillation with rapid ventricular response: Problem details: - Had an episode of atrial fibrillation with RVR on admission and again this morning. Giving metoprolol. Hold off on discharge until under control. - ECHO 01/15/24 okay - started full-dose Eliquis 01/15, adjusted for weight and age, continue to monitor hemoglobin daily Status: Acute (3) Urinary tract infection: Problem details: Possible UTI based on urinalysis. Not currently symptomatic. Got 1 dose ceftriaxone. Marjorie op antibiotics with Ancef planned as well. Pansensitive Ecoli. Ancef complete. Start keflex. Total of 10 days. Status: Acute (4) Hypertension: Problem details: Continue home atenolol. Restarted olmesartan and amlodipine Status: Acute (5) Generalized anxiety disorder: Problem details: Hold diazepam while receiving opioids. Status: Acute (6) Hyponatremia: Problem details: 126, down from 132. 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 Meds reviewed. Monitor. Cons ider holding olmasartan if further worsening or not improving. Status: Acute Subjective Time Seen by Provider: 08:48 Date Seen: 01/17/24 Interval history: Linda denies CP or SOB. She states her pain is okay, but she doesn't feel well. She can't place what's wrong. Exam Narrative: Exam Narrative: General: No acute distress. Awake, alert, oriented. Mild pallor. No jaundice. Oropharynx: Clear. Mucous membranes moist. Cardiovascular: Irregularly irregular, mildly tachycardic. No murmurs, gallops, or rubs. Respiratory: Clear to auscultation bilaterally. No wheezes or crackles. Abdomen: Bowel sounds present. Soft, nondistended, nontender. Extremities: Right hip bandage is clean, dry, and intact. No pedal edema. Const: Vital Signs, click to edit/add: Vital Signs - 24 hr 01/16/24 19:00 01/16/24 23:00 01/16/24 23:00 Temperature 97.9 F 97.3 F L Pulse Rate Pulse Rate [Right Pulse Oximeter] 102 H 101 H Respiratory Rate 16 16 16 Blood Pressure [Le ft Arm] 143/62 H 167/85 H Pulse Oximetry 93 92 92 Oxygen Delivery Me thod Room Air Room Air Room Air Oxygen Flow Rate 0 0 Fraction of Inspir ed Oxygen 01/16/24 23:00 01/17/24 03:00 01/17/24 07:00 Temperature 98.0 F 98.1 F Pulse Rate 101 H Pulse Rate [Right Pulse Oximeter] 115 H 105 H Respiratory Rate 16 16 Blood Pressure [Le ft Arm] 146/76 H 163/80 H Pulse Oximetry 92 93 Oxygen Delivery Me thod Room Air Room Air Oxygen Flow Rate Fraction of Inspir ed Oxygen 01/17/24 07:00 01/17/24 07:00 01/17/24 10:55 Temperature 98.3 F Pulse Rate Pulse Rate [Right Pulse Oximeter] 105 H 89 Respiratory Rate 16 16 16 Blood Pressure [Le ft Arm] 109/50 L Pulse Oximetry 93 90 Oxygen Delivery Me thod Room Air Room Air Oxygen Flow Rate 0 Fraction of Inspir ed Oxygen 100 01/17/24 11:00 01/17/24 15:00 01/17/24 15:00 Temperature 97.6 F Pulse Rate Pulse Rate [Right Pulse Oximeter] 60 63 Respiratory Rate 16 16 16 Blood Pressure [Le ft Arm] 142/96 H Pulse Oximetry 94 94 Oxygen Delivery Me thod Room Air Room Air Oxygen Flow Rate Fraction of Inspir ed Oxygen 01/17/24 15:00 Temperature 98.3 F Pulse Rate Pulse Rate [Right Pulse Oximeter] 92 Respiratory Rate 16 Blood Pressure [Le ft Arm] 122/54 L Pulse Oximetry 94 Oxygen Delivery Me thod Room Air Oxygen Flow Rate Fraction of Inspir ed Oxygen Labs Labs: Laboratory Results - last 24 hr 01/17/24 09:00 WBC 17.70 H RBC 3.30 L Hgb 10.2 L Hct 31.0 L MCV 94 MCH 31 MCHC 33 RDW Coeff of Celina 12.9 Plt Count 225 Neut % (Auto) 83.4 H Lymph % (Auto) 9.7 L [place] % (Auto) 5.9 Eos % (Auto) 0.5 Baso % (Auto) 0.1 Neut # (Auto) 14.80 H Lymph # (Auto) 1.70 [place] # (Auto) 1.00 H Eos # (Auto) 0.10 Baso # (Auto) 0.00 Abs Immat Gran (auto) 0.10 Imm/Tot Granulo (auto) 0.4 Sodium 126 L Potassium 4.1 Chloride 93 L Carbon Dioxide 29 Anion Gap 4 L BUN 21 Creatinine 0.5 Estimated Creat Clear 30.47 Estimated GFR 91 Glucose 164 H Calcium 8.9
[2024-01-17] MEDS: cephALEXin 500 MG CAPSULE PO ×2 (17:48→20:38)
[2024-01-17] MEDS: diazePAM 5 MG TABLET 2.5 MG PO (22:47)
[2024-01-18] VITALS (10 sets, daily range): BP systolic 121–155; BP diastolic 50–69; PULSE 84–106; RESP 16–18; TEMP 36.6–37; O2SAT 92–97
[2024-01-18] MEDS: OXYCODONE 5 MG TABLET PO ×3 (04:26→18:10)
--- NOTE | 2024-01-18 06:15 | PC.NURSE ---
End of shift [id number]: Pleasant and cooperative with cares. Alert and oriented to person and date. Requires reorientation PRN for intermittent confusion, easily redirected. Pain to right hip well managed with current regimen. Dressing clean, dry and intact. Abductor pillow placed at HS, patient tolerates well. Transfers and ambulates with min assist x 1 with gait belt and walker. Denies any chest pain or shortness of breath.
[2024-01-18 07:03] LABS: Chloride* 92 mmol/L (96-114)
[2024-01-18 07:06] LABS: Creatinine* 0.5 mg/dL (0.5-1.5); Est. Creatinine Clearance* 30.47; Estimated Glomerular Filt Rate 91 ml/min
[2024-01-18 07:07] LABS: Anion Gap 7 mEq/L (7-15); Blood Urea Nitrogen* 23 mg/dL (7-30); Calcium* 8.5 mg/dL (8.4-10.6); Carbon Dioxide* 25 mmol/L (20-32); Glucose* 130 mg/dL (60-115)
[2024-01-18 07:17] LABS: Sodium* 124 mmol/L (135-149)
[2024-01-18] MEDS: SENNOSIDES 1 TAB TABLET 2 TAB PO (09:12)
[2024-01-18] MEDS: METOPROLOL TARTRATE 25 MG TABLET PO ×2 (09:13→20:51)
[2024-01-18] MEDS: SODIUM CHLORIDE 0.9 % (FLUSH) 10 ML SYRINGE 5 ML IVF ×2 (09:13→20:51)
[2024-01-18] MEDS: cephALEXin 500 MG CAPSULE PO ×3 (09:13→20:51)
[2024-01-18] MEDS: APIXABAN 5 MG TABLET 2.5 MG PO ×2 (09:13→20:50)
[2024-01-18] MEDS: AMLODIPINE 10 MG TABLET PO (09:13)
[2024-01-18] MEDS: SODIUM CHLORIDE 1 GM TABLET PO ×3 (09:13→18:10)
--- NOTE | 2024-01-18 11:46 | PM.ORPN ---
Subjective Subjective Date Seen: 01/18/24 Principal diagnosis: POD 3 right bipolar hemiarthroplasty Interval history: Patient reports doing okay today, better from previous days. Pain is better. No acute events over night. Pain managed with scheduled and PRN medications, ice. DVT prophylaxis: Apixaban 2.5 mg twice daily, bilateral knee high Michael stockings, SCDs, walking. Denies fevers, chills, aches, N/V, CP, SOB/ORTEGA, or lightheadedness. Eating breakfast this morning. Ortho Exam Narrative Exam Narrative: -Patient appears comfortable in recliner eating breakfast; no apparent acute distress -Alert and oriented times 3 -Operative hip swollen; soft tissues supple; no obvious erythema. No appreciable ecchymosis. Warmth appropriate -Surgical dressing clean, dry, intact; no obvious drainage, no erythematous streaking peripheral to the bandage -Bilateral calves soft and supple; no significant swelling, edema, tenderness, erythema, discoloration, warmth, or palpable cords -2+ DP/PT pulses, intact dermatomes and myotomes distally (5/5 strength). Const Vital Signs, click to edit/add: Vital Signs - 24 hr 01/17/24 15:00 01/17/24 15:00 01/17/24 15:00 Temperature 98.3 F Pulse Rate Pulse Rate [Right Pulse Oximeter] 63 92 Respiratory Rate 16 16 16 Blood Pressure [Left Arm] 122/54 L Pulse Oximetry 94 94 Oxygen Delivery Method Room Air Room Air 01/17/24 16:53 01/17/24 19:00 01/17/24 23:00 Temperature 97.5 F L Pulse Rate 118 H 99 Pulse Rate [Right Pulse Oximeter] 96 Respiratory Rate 16 Blood Pressure [Left Arm] 105/57 L Pulse Oximetry 92 Oxygen Delivery Method Room Air 01/17/24 23:00 01/17/24 23:00 01/17/24 23:00 Temperature 97.8 F Pulse Rate Pulse Rate [Right Pulse Oximeter] 97 97 Respiratory Rate 18 18 18 Blood Pressure [Left Arm] 163/98 H Pulse Oximetry 93 93 Oxygen Delivery Method Room Air Room Air 01/18/24 03:00 01/18/24 07:00 01/18/24 07:00 Temperature 97.8 F Pulse Rate Pulse Rate [Right Pulse Oximeter] 90 97 Respiratory Rate 16 18 18 Blood Pressure [Left Arm] 121/58 L Pulse Oximetry 93 97 Oxygen Delivery Method Room Air Room Air 01/18/24 07:00 01/18/24 08:28 Temperature 98.0 F Pulse Rate 95 Pulse Rate [Right Pulse Oximeter] 97 Respiratory Rate 18 Blood Pressure [Left Arm] 133/69 Pulse Oximetry 97 Oxygen Delivery Method Room Air Assessment and Plan Assessment and plan (1) S/P hip hemiarthroplasty: Problem details: - 01/15/24 Right hip for femoral neck fracture, Dr. Crawford - routine postop cares - on therapeutic anticoagulation in light of AFib (2.5 mg apixaban twice daily) Status: Acute (2) Atrial fibrillation with rapid ventricular response: Problem details: - Had an episode of atrial fibrillation with RVR on admission and again this morning. Giving metoprolol. Hold off on discharge until under control. - ECHO 01/15/24 okay - started full-dose Eliquis 01/15, adjusted for weight and age, continue to monitor hemoglobin daily Status: Acute (3) Urinary tract infection: Problem details: Possible UTI based on urinalysis. Not currently symptomatic. Got 1 dose ceftriaxone. Marjorie op antibiotics with Ancef planned as well. Pansensitive Ecoli. Ancef complete. Start keflex. Total of 10 days. Status: Acute (4) Hypertension: Problem details: Continue home atenolol. Restarted olmesartan and amlodipine Status: Acute (5) Generalized anxiety disorder: Problem details: Hold diazepam while receiving opioids. Status: Acute (6) Hyponatremia: Problem details: 126, down from 132. 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 Meds reviewed. Monitor. Consider holding olmasartan if further worsening or not improving. Status: Acute Plan - PT/OT consult for education and assistance. - Prescribed analgesics as needed - DVT prophylaxis: 2.5 mg Apixaban twice daily, bilateral knee high Michael Hose stockings and SCDs - Anticipation is for discharge to [facility] 01/19/2024 via private vehicle
--- NOTE | 2024-01-18 12:17 | P.IMPN_ITS ---
Progress Note: A&P Assessment and plan (1) S/P hip hemiarthroplasty: Problem details: POD# 3 s/p right bipolar hemiarthroplasty on 01/15/24 for right hip for femoral neck fracture, Dr. Crawford Continue therapeutic anticoagulation in light of AFib (2.5 mg apixaban twice daily) Plan to discharge to [place] on 01/18 for rehab Status: Acute (2) Atrial fibrillation with rapid ventricular response: Problem details: - Had an episode of atrial fibrillation with RVR on admission and with a 2nd occurrence, responded to metoprolol - ECHO 01/15/24 okay - started full-dose Eliquis 01/15, adjusted for weight and age, continue to monitor hemoglobin daily Plan to discharge on metoprolol, discontinuing home atenolol Status: Acute (3) Urinary tract infection: Problem details: Possible UTI based on urinalysis. Not currently symptomatic. Got 1 dose ceftriaxone. Marjorie op antibiotics with Ancef planned as well. Pansensitive Ecoli. Ancef complete. Continue Keflex for total of 10 days. Status: Acute (4) Hypertension: Problem details: Continue home atenolol - switching to metoprolol at discharge for better AFib control Restarted olmesartan and amlodipine Status: Acute (5) Generalized anxiety disorder: Problem details: Hold diazepam while receiving opioids. 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 Meds reviewed. Monitor. Hold olmasartan Fluid restriction, salt tabs Status: Acute Plan Discharge to [place] on 01/19/2024 Time Spent With Patient Total time spent: Total time spent caring for the patient today was 45 minutes. This includes time spent for the visit reviewing the chart, time spent during the visit, time spent after the visit and documentation and planning in coordination of care. Subjective Date Seen: 01/18/24 Interval history: Patient is seen sitting up in a chair this morning. Pain is improving. Denies headache or dizziness. Remains afebrile. Tolerating orals without nausea vomiting. Continues to work with therapies. You events reported overnight. Exam Narrative: Exam Narrative: PHYSICAL EXAM General: Pleasant, conversant, NAD Cardiovascular: RRR, S1S2. No pitting edema Pulmonary: CTA bilaterally without rhonchi, rales, expiratory wheezes. No dyspnea Neurological: Alert, answering questions appropriately, cranial nerves intact, no focal findings Extremities: No gross joint deformity or swelling. Neurovascularly intact Skin: Warm, dry. Const: Vital Signs, click to edit/add: Vital Signs - 24 hr 01/17/24 15:00 01/17/24 15:00 01/17/24 15:00 Temperature 98.3 F Pulse Rate Pulse Rate [Right Pulse Oximeter] 63 92 Respiratory Rate 16 16 16 Blood Pressure [Le ft Arm] 122/54 L Pulse Oximetry 94 94 Oxygen Delivery Me thod Room Air Room Air 01/17/24 16:53 01/17/24 19:00 01/17/24 23:00 Temperature 97.5 F L Pulse Rate 118 H 99 Pulse Rate [Right Pulse Oximeter] 96 Respiratory Rate 16 Blood Pressure [Le ft Arm] 105/57 L Pulse Oximetry 92 Oxygen Delivery Pr thod Room Air 01/17/24 23:00 01/17/24 23:00 01/17/24 23:00 Temperature 97.8 F Pulse Rate Pulse Rate [Right Pulse Oximeter] 97 97 Respiratory Rate 18 18 18 Blood Pressure [Le ft Arm] 163/98 H Pulse Oximetry 93 93 [facility] 01/18/24 03:00 01/18/24 07:00 01/18/24 07:00 Temperature 97.8 F Pulse Rate Pulse Rate [Right Pulse Oximeter] 90 97 Respiratory Rate 16 18 18 Blood Pressure [Le ft Arm] 121/58 L Pulse Oximetry 93 97 [facility] Room Air 01/18/24 07:00 01/18/24 08:28 01/18/24 11:56 Temperature 98.0 F 97.8 F Pulse Rate 95 Pulse Rate [Right Pulse Oximeter] 97 84 Respiratory Rate 18 18 Blood Pressure [Le ft Arm] 133/69 124/50 L Pulse Oximetry 97 96 Oxygen Delivery Pr thod Room Air Room Air Labs Labs: Laboratory Results - last 24 hr 01/18/24 06:17 Sodium 124 L* Potassium 4.0 Chloride 92 L Carbon Dioxide 25 Anion Gap 7 BUN 23 Creatinine 0.5 Estimated Creat Clear 30.47 Estimated GFR 91 Glucose 130 H Calcium 8.5
--- NOTE | 2024-01-18 15:19 | PC.SOCIAL ---
Discharge planning- Patient will discharge to [facility] tomorrow. [facility] will transport patient at 10:00 am. [employer] ambulette driver will pick patient up in patient's room. Phone call to patient's friend, Robinson Rogers, to provide update. Robinson will ensure that patient has clothing and shoes to take to [facility]. Completed preadmission screening. Confirmation #[id number]. Provided copy of PAS and update on discharge time to Marleny in admissions at [facility]. Update to nursing and MD. Social work will follow up as needed.
--- NOTE | 2024-01-18 18:39 | PC.NURSE ---
End of Shift: Patient pleasant and cooperative, A&O. Patient does seem slightly confused at times. VSS, afebrile. Patient reports pain of 8 this shift to her right hip, managed with PRN medication, see MAR. Dressing to right hip C/D/I. Up to bathroom with 1A, walker and gait belt. Tolerating regular diet. 1500 fluid restriction.
--- NOTE | 2024-01-18 21:45 | PC.NURSE ---
Delivery Professional held HS dose of Senna as day RN reported pt having loose stool. Delivery Professional observed blanchable redness to bilateral buttocks with zinc protective cream applied after cleansing and drying after toileting.
[2024-01-19] MEDS: OXYCODONE 5 MG TABLET PO ×2 (02:15→09:34)
[2024-01-19 03:00] VITALS: BP 145/64; PULSE 94; RESP 18; TEMP 37.1; O2SAT 93
--- NOTE | 2024-01-19 06:34 | PC.NURSE ---
End of shift note [id number]: Pt alert & oriented x 4 and able to make needs known. Pt transferring/ambulating with SBA using walker and gait belt. Pt has been afebrile this shift and was noted to be slightly tachycardic with pulse of 106 at start of shift. Heart rate has since been WNL since pt received HS dose of Metoprolol. Dressing to R hip noted to be C/D/I with abductor pillow utilized when pt in bed though pt did also refuse pillow to be placed for partial part of the shift despite education and encouragement. IV to L AC patent and SL. Pt remains on 1500 mL fluid restriction daily. Pt continent of bladder though incontinent of loose stool x 1. Adjunct Phlebotomy Instructor applied zinc protective cream to bilateral buttocks with toileting after noting blanchable redness. PRN Oxycodone administered for report of 8/10 R hip/leg pain when asked which was effective upon followup. Ice also provided throughout the shift with rest encouraged and repositioning performed. Pt on telemetry with NSR noted.
[2024-01-19 07:00] VITALS: BP 140/64; PULSE 92; RESP 18; TEMP 36.6; O2SAT 92
--- NOTE | 2024-01-19 08:09 | PM.DS1 ---
DS: Providers Provider Date Seen: 01/19/24 Date of admission: 01/14/24 16:24 Primary care physician: Not a Local Provider Admitting Clinician: Mauricio Briones MD Consults: 01/14/24 15:58 Consult to Physical Therapy [CONS] Routine Comment: Reason(s) for PT Consult:: Evaluate and Treat Recent Falls Any Restrictions?:: Non Wt Bearing 01/14/24 16:26 Consult to Occupational Therapy [CONS] Routine Comment: Reason(s) for OT Consult:: Evaluate and Treat Any Restrictions?:: No Restrictions Consult to Physician [CONS] Routine Comment: Consulting Provider: Guanako Crawford Has provider been notified: No Consult to Supervisor [employer] [CONS] Routine Comment: Reason for Consult:: Discharge Planning Needs 01/15/24 15:09 Consult to Physical Therapy [CONS] Routine Comment: Reason(s) for PT Consult:: Evaluate and Treat Any Restrictions?:: Wt Bearing as Tolerated Attending Physician on discharge: NAOMI Kelley, [facility]C [facility] Date of Discharge: 01/19/24 DS: Diagnosis Discharge Diagnosis (1) S/P hip hemiarthroplasty: Status: Acute Problem details: S/p right bipolar hemiarthroplasty on 01/15/24 for right hip femoral neck fracture, Dr. Crawford. Will continue therapeutic anticoagulation in light of AFib (2.5 mg apixaban twice daily). PT/OT consulted. Has been using a small amount of oxycodone on occasion. Is discharged [facility] for ongoing rehab. (2) Atrial fibrillation with rapid ventricular response: Status: Acute Problem details: Had an episode of atrial fibrillation with RVR on admission and with a 2nd occurrence, responded to metoprolol. ECHO 01/15/24 okay. Started full-dose Eliquis 01/15, adjusted for weight and age. Patient is discharged on metoprolol, discontinuing home atenolol. Outpatient follow-up with PCP for ongoing medication management. (3) Urinary tract infection: Status: Acute Problem details: Possible UTI based on urinalysis. Not currently symptomatic. Urine culture growing >[id number] E coli, pansensitive. Received 1 dose ceftriaxone as well as perioperative Ancef and transitioned to oral Keflex. Will continue Keflex for total of 5 days oral antibiotic following IV antibiotic. (4) Hypertension: Status: Acute Problem details: Switching home atenolol to metoprolol at discharge for better AFib control Restarted olmesartan and amlodipine, however held olmesartan given low sodium prior to discharge. (5) Generalized anxiety disorder: Status: Acute Problem details: Hold diazepam while receiving opioids, resume on discharge as needed, caution given sedation and fall risk. (6) Hyponatremia: Status: Acute Problem details: Sodium noted to trend down 124, down from 126 and 132. 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 Sodium 127 on discharge. Continue to hold olmesartan until follow-up with PCP and recheck sodium levels. Continue oral sodium tablets. DS: Summary Hospital Course Hospital Course: [age] year old female was admitted to the medical floor following a fall resulting in a right femoral neck fracture, surgically repaired on 01/15/2024. Placed for rehab. Course of care and details as noted above. Remainder of chronic medical comorbidities were monitored and managed with home medications. Status at Discharge Overall status at discharge: patient is not back to baseline Time Spent with Patient Time attestation: Total time spent providing and/or coordinating discharge services: Time spent: Greater than 30 minutes Exam Narrative: Exam Narrative: PHYSICAL EXAM General: Pleasant, conversant, NAD Cardiovascular: RRR Pulmonary: No dyspnea Neurological: Alert, answering questions appropriately Skin: Warm, dry. Const: Vital Signs, click to edit/add: Vital Signs - 24 hr 01/18/24 08:28 01/18/24 11:56 01/18/24 15:00 Temperature 98.0 F 97.8 F Pulse Rate Pulse Rate [Right Pulse Oximeter] 97 84 84 Respiratory Rate 18 18 18 Blood Pressure [Le ft Arm] 133/69 124/50 L Blood Pressure [Ri ght Arm] Pulse Oximetry 97 96 Oxygen Delivery Me thod Room Air Room Air 01/18/24 15:00 01/18/24 15:00 01/18/24 16:50 Temperature 97.8 F Pulse Rate 87 Pulse Rate [Right Pulse Oximeter] 92 Respiratory Rate 16 16 Blood Pressure [Le ft Arm] 124/50 L Blood Pressure [Ri ght Arm] Pulse Oximetry 95 95 Oxygen Delivery Me thod Room Air Room Air 01/18/24 19:40 01/18/24 22:59 01/18/24 23:00 Temperature 98.1 F Pulse Rate 95 Pulse Rate [Right Pulse Oximeter] 106 H 95 Respiratory Rate 18 16 Blood Pressure [Le ft Arm] 155/67 H Blood Pressure [Ri ght Arm] Pulse Oximetry 94 Oxygen Delivery Me thod Room Air 01/18/24 23:27 01/18/24 23:27 01/19/24 03:00 Temperature 98.6 F 98.7 F Pulse Rate Pulse Rate [Right Pulse Oximeter] 95 94 Respiratory Rate 16 16 18 Blood Pressure [Le ft Arm] Blood Pressure [Ri ght Arm] 146/61 H 145/64 H Pulse Oximetry 92 92 93 Oxygen Delivery Me thod Room Air Room Air Room Air DS: Data Imaging Chest x-ray: Attestation: I have reviewed the pertinent imaging results. Radiologist's impression: Cardiovasculature and mediastinum: Heart size is normal. Unremarkable mediastinum. Lungs and pleural spaces: Lungs are clear except for a few small calcified granulomas. No sign of infiltrate or mass. No sign of pleural effusion. No pneumothorax. Bones and soft tissues: No significant findings. IMPRESSION: No acute or significant findings. Hip x-ray: Attestation: I have reviewed the pertinent imaging results. Radiologist's impression: Bones: Acute nondisplaced subcapital fracture of the right femoral neck. No other osseous abnormality. Joint spaces: Severe bilateral hip joint arthritis. Soft tissues: Unremarkable CT scan - head: Attestation: I have reviewed the pertinent imaging results. Radiologist's impression: No skull fracture or acute intracranial hemorrhage identified Discharge Plan Discharge Disposition: [facility] Date of Admission: 01/14/24 16:24 Attending Provider on Discharge: Radha Centeno Consulting Providers: Guanako Crawford Primary Care Provider: Provider,Not a Local Condition: Improved Anticipated Discharge Date/Time: 01/19/24 07:26 Discharge Medications: New sennosides [Senna Lax] 8.6 mg Tablet 8.6 mg PO BID Qty: 60 0RF Rx Instructions: Take while using narcotics. Stop if frequent, loose stools cephalexin 500 mg Capsule 500 mg PO TID Qty: 9 0RF diazepam 5 mg Tablet 2.5 mg PO BID PRNQty: 12 0RF oxycodone 5 mg Tablet 2.5 mg PO Q4H PRN (Reason: Pain) Qty: 12 0RF metoprolol tartrate 25 mg Tablet 25 mg PO BID Qty: 60 0RF sodium chloride 1,000 mg Tablet,Soluble 1,000 mg PO TIDWM Qty: 60 0RF Eliquis 5 mg Tablet 2.5 mg PO BID Qty: 90 0RF acetaminophen 500 mg capsule 500 - 1,000 mg PO Q6H MDD 3000mg PRNQty: 100 0RF Continued amlodipine 10 mg tablet 10 mg PO DAILY Held olmesartan 40 mg tablet 40 mg PO DAILY Hold Instructions: Resume on 01/26/24. Do Not take this medication until follow up with your PCP and recheck sodium level Discontinued atenolol 25 mg tablet 25 mg PO DAILY diazepam 5 mg tablet 5 mg PO DAILY PRN Discharge Orders: Discharge Order (Routine); Ordered 01/19/24 Ordered By: Radha Centeno Additional Instructions: Your sodium is 127 today. Continue to take sodium tabs. Recheck sodium level in 2-3 days. Finish the antibiotic for your urinary tract infection. For your atrial fibrillation: Your atenolol has been discontinued. Instead, take metoprolol twice daily as prescribed. Additionally, take apixaban twice daily Do not take your olmesartan until follow up with your PCP and a recheck of your sodium. Activity Level: Activity as Tolerated, Up with assist and Weight Bearing as Tolerated Activity Detail: Wound: ? may remove surgical dressing after 1 week. Remove the dressing sooner if integrity is in question. ? No immersing wound in water; showering okay; light scrub with your hand and body soap, rinse, dab dry ? Sutures are under the skin, will dissolve; allow surgical glue to come off naturally; do not scrub the wound or apply ointments/lotions ? Call our office with any redness that streaks, excessive drainage from the wound, or wound gapping. Ice/Elevate: ? Ice as needed for swelling and discomfort (ice pack). Motion/Exercise: ? Weight bear as tolerated operative extremity (walker/cane for ambulation assistance as needed) ? Per PT/OT. ? Straight leg raises daily: 1-2 sets of 10 reps Pain Medications: ? Oral narcotic as prescribed. Wean as tolerated. Additional acetaminophen as needed. Blood Clot Prevention (DVT): ? Medication: 2.5 mg Apixaban twice daily. This may be, a chronic medication due to new onset AFib during this hospital stay Driving: ? Do not drive while taking narcotic pain medication ? Anticipate 4-6 weeks no driving if operative leg is driving leg Dental: ? No elective dental work for 6 months post-op. If there is an urgent/emergent dental need, contact our office for an antibiotic prescription. Smoking/Alcohol: ? Do not smoke; do no drink alcohol especially when taking postoperative oral narcotic medication Seek Care from you Primary Care Provider if you experience the following issues in the postoperative phase and beyond: ? Bacterial infections such as: pneumonia, bacterial skin infection (cellulitis), UTI, high fever, chills unrelated to the operative body part - call your primary care physician urgently for treatment in hopes to protect your health and the metal implant. Referrals: ? PT, OT per patient preference - evaluate and treat posterior approach bipolar hemiarthroplasty (gait training, ROM, ADLs) Vaccines: ? No vaccines until 4-6 weeks postop Follow up: ? PA-C visit in 1 week or once discharged from SNF. ? Ortho surgeon follow-up in 6 weeks; repeat radiographs AP pelvis, cross table lateral operative hip If there are any acute concerns regarding your surgery, please call our orthopedic clinic ([phone]) Discharge Diet: Regular Follow Up Appointments: Provider,Not a Local [Primary Care Provider] - Forms: MyHealth Info Instructions Wound Care: as above Admit to: SNF Discharge Potential: Good Length of Stay: <30 days Can use facility standing orders?: Yes Code Status: Full Code TEDs: Bilateral Knee Rehab Potential: Good Therapy: Physical Therapy and Occupational Therapy Therapy Orders: Evaluate and Treat, Gait Training and ADL Oxygen: No Orders are good >30 days: No Signature: NAOMI Kelley, PA-C [facility]
[2024-01-19 08:36] LABS: Chloride* 94 mmol/L (96-114)
[2024-01-19 08:37] LABS: Potassium* 3.9 mmol/L (3.6-5.1); Sodium* 127 mmol/L (135-149)
[2024-01-19 08:39] LABS: Creatinine* 0.4 mg/dL (0.5-1.5); Est. Creatinine Clearance* 30.47; Estimated Glomerular Filt Rate 96 ml/min
[2024-01-19 08:40] LABS: Anion Gap 7 mEq/L (7-15); Blood Urea Nitrogen* 23 mg/dL (7-30); Calcium* 8.6 mg/dL (8.4-10.6); Carbon Dioxide* 26 mmol/L (20-32); Glucose* 132 mg/dL (60-115)
[2024-01-19] MEDS: METOPROLOL TARTRATE 25 MG TABLET PO (09:35)
[2024-01-19] MEDS: APIXABAN 5 MG TABLET 2.5 MG PO (09:35)
[2024-01-19] MEDS: SODIUM CHLORIDE 0.9 % (FLUSH) 10 ML SYRINGE 5 ML IVF (09:36)
[2024-01-19] MEDS: SODIUM CHLORIDE 1 GM TABLET PO (09:36)
[2024-01-19] MEDS: AMLODIPINE 10 MG TABLET PO (09:36)
[2024-01-19] MEDS: cephALEXin 500 MG CAPSULE PO (09:36)
--- NOTE | 2024-01-19 10:10 | P.ORPN_ITS ---
Subjective Subjective Date Seen: 01/19/24 Principal diagnosis: POD 4 right bipolar hemiarthroplasty Interval history: Patient reports doing well. No acute events over night. Hospitalist has been monitoring and managing her sodium. Pain managed with scheduled and PRN medications, ice. DVT prophylaxis: 2.5 mg apixaban twice daily, bilateral knee high Michael stockings, SCDs, walking. Denies fevers, chills, aches, N/V, CP, SOB/ORTEGA, or lightheadedness. Reports having slept well. Small bowel movement yesterday. Ortho Exam Narrative Exam Narrative: -Patient appears comfortable in bed; no apparent acute distress -Alert and oriented times 3. Mildly confused, as she was unsure of her plan for discharge and where she was going for SNF. She was unsure who was taking her to SNF. Yesterday, 01/18/2024, she could really all this information to me easily -Operative hip mildly swelling; soft tissues supple; no obvious erythema. No appreciable ecchymosis. Warmth appropriate -Surgical dressing clean, dry, intact; no obvious drainage, no erythematous streaking peripheral to the bandage -Bilateral calves soft and supple; no significant swelling, edema, tenderness, erythema, discoloration, warmth, or palpable cords -2+ DP/PT pulses, intact dermatomes and myotomes distally (5/5 strength). Const Vital Signs, click to edit/add: Vital Signs - 24 hr 01/18/24 11:56 01/18/24 15:00 01/18/24 15:00 Temperature 97.8 F Pulse Rate Pulse Rate [Right Pulse Oximeter] 84 84 Respiratory Rate 18 18 16 Blood Pressure [Left Arm] 124/50 L Blood Pressure [Right Arm] Pulse Oximetry 96 95 Oxygen Delivery Method Room Air Room Air Oxygen Flow Rate 01/18/24 15:00 01/18/24 16:50 01/18/24 19:40 Temperature 97.8 F 98.1 F Pulse Rate 87 Pulse Rate [Right Pulse Oximeter] 92 106 H Respiratory Rate 16 18 Blood Pressure [Left Arm] 124/50 L 155/67 H Blood Pressure [Right Arm] Pulse Oximetry 95 94 Oxygen Delivery Method Room Air Room Air Oxygen Flow Rate 01/18/24 22:59 01/18/24 23:00 01/18/24 23:27 Temperature Pulse Rate 95 Pulse Rate [Right Pulse Oximeter] 95 Respiratory Rate 16 16 Blood Pressure [Left Arm] Blood Pressure [Right Arm] Pulse Oximetry 92 Oxygen Delivery Method Room Air Oxygen Flow Rate 01/18/24 23:27 01/19/24 03:00 01/19/24 07:00 Temperature 98.6 F 98.7 F Pulse Rate Pulse Rate [Right Pulse Oximeter] 95 94 Respiratory Rate 16 18 18 Blood Pressure [Left Arm] Blood Pressure [Right Arm] 146/61 H 145/64 H Pulse Oximetry 92 93 92 Oxygen Delivery Method Room Air Room Air Room Air Oxygen Flow Rate 0 Assessment and Plan Assessment and plan (1) S/P hip hemiarthroplasty: Problem details: POD# 4 s/p right bipolar hemiarthroplasty on 01/15/24 for right hip for femoral neck fracture, Dr. Crawford Continue therapeutic anticoagulation in light of AFib (2.5 mg apixaban twice daily) Plan to discharge to [place] on 01/18 for rehab Status: Acute (2) Atrial fibrillation with rapid ventricular response: Problem details: - Had an episode of atrial fibrillation with RVR on admission and with a 2nd occurrence, responded to metoprolol - ECHO 01/15/24 okay - started full-dose Eliquis 01/15, adjusted for weight and age, continue to monitor hemoglobin daily Plan to discharge on metoprolol, discontinuing home atenolol Status: Acute (3) Urinary tract infection: Problem details: Possible UTI based on urinalysis. Not currently symptomatic. Got 1 dose ceftriaxone. Marjorie op antibiotics with Ancef planned as well. Pansensitive Ecoli. Ancef complete. Continue Keflex for total of 10 days. Status: Acute (4) Hypertension: Problem details: Continue home atenolol - switching to metoprolol at discharge for better AFib control Restarted olmesartan and amlodipine Status: Acute (5) Generalized anxiety disorder: Problem details: Hold diazepam while receiving opioids. 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 Meds reviewed. Monitor. Hold olmasartan Fluid restriction, salt tabs Status: Acute Plan - PT/OT consult for education and assistance. - Social work consult for discharge planning - Prescribed analgesics as needed - minimize oral narcotics if possible - DVT prophylaxis: 2.5 mg Apixaban twice daily, bilateral knee high Michael Hose stockings and SCDs - Anticipation is for discharge to SNF, [facility] possibly today 01/19/2024, if the patient remains medically stable, pain is controlled, and they are safe with mobilization. At this point, with her low sodium, she may not be going to [facility] today per charge nurse. - orthopedics can be available remotely if needed
--- NOTE | 2024-01-19 12:07 | PC.NURSE ---
Discharge note: Pt friendly and cooperative. Ambulates well with assist x1 with walker and GB. Rates pain 6/10, PRN Oxycodone given prior to discharge. Surgical dressing C,D,&I. Pt declines to use abduction pillow and precautions reviewed with pt who verbalized understanding. Nurse to nurse report given to GA Rodriguez from [facility]. Pt was discharged into the care of a friend via wheelchair at 1010. Pt and friend given packet to provide to [facility].
== END 2024-01-19 10:10 | DRG 522 ==
LOC: ED 14:28 → MEDSURG 14:50
PROVIDERS: Family Medicine; Orthopaedic Surgery Sports Medicine; Physician Assistant; Admitting Provider Family Medicine; Emergency Provider Family Medicine; Visit Provider Family Medicine
PROC: 0SRR039 Replacement of Right Hip Joint, Femoral Surface with Ceramic Synthetic Substitute, Cemented, Open Approach (ICD-10-PCS; principal; 2024-01-15 10:00)
DX: S72.011A Unspecified intracapsular fracture of right femur, initial encounter for closed fracture (principal); N39.0 Urinary tract infection, site not specified; E22.2 Syndrome of inappropriate secretion of antidiuretic hormone; W10.9XXA Fall (on) (from) unspecified stairs and steps, initial encounter; Y92.019 Unspecified place in single-family (private) house as the place of occurrence of the external cause; G89.18 Other acute postprocedural pain; B96.20 Unspecified Escherichia coli [E. coli] as the cause of diseases classified elsewhere; I10 Essential (primary) hypertension; F41.1 Generalized anxiety disorder; I48.91 Unspecified atrial fibrillation
CPT/HCPCS: 01210; 01230; 36415; 64450; 70450; 71045; 73501; 73502; 76942; 80048; 80053; 81001; 83036; 83880; 84295; 84484; 85025; 85027; 87086; 87186; 93005; 93306; 94761; 97110; 97116; 97161; 97165; 97530; 97535; 99100; 99285; 99291; A9270; C1776; J0690; J0696; J1100; J1170; J2270; J2405; J2704; J2795; J3010; J3490; J7120

== ENCOUNTER 2024-03-29 09:12 | Outpatient (CLI) | payer MEDICARE, BC, MEDICAID, SELFPAY | END 2024-03-29 09:13 | disposition home or self-care (01) | LOC: AMB 03-31 07:52 | PROVIDERS: PCP Physician Assistant Medical; Visit Provider Family Medicine | DX: S39.92XA Unspecified injury of lower back, initial encounter (principal); R53.1 Weakness; W18.30XA Fall on same level, unspecified, initial encounter; Y92.009 Unspecified place in unspecified non-institutional (private) residence as the place of occurrence of the external cause | CPT/HCPCS: A0425; A0427 ==

== ENCOUNTER 2024-03-29 09:37 | Inpatient (IN) | payer MEDICARE, BC, MEDICAID, SELFPAY ==
[2024-03-29] VITALS (16 sets, daily range): BP systolic 90–133; BP diastolic 52–65; PULSE 70–120; RESP 14–18; TEMP 36.1–36.7; O2SAT 94–98; BMI 18.9
--- NOTE | 2024-03-29 10:07 | CRLHL7_ITS ---
For Patients: As a result of the Century Cures Act, medical imaging exams and procedure reports are released immediately into your electronic medical record. You may view this report before your referring provider. If you have questions, please contact your health care provider. Indication: Fall Technique: Volumetric multidetector CT images of the head were obtained without the administration of low osmolar intravenous contrast. Comparison: None available Findings: There is no intra-axial or extra-axial fluid collection. There is no mass effect or midline shift. There is age-related cortical atrophy with moderate sulcal widening and ex vacuo dilatation of the lateral ventricles. There are chronic small vessel disease changes in the subcortical and periventricular white matter without lost hernandez-white differentiation. The orbits and their contents are grossly within normal limits. There is minimal superficial likely scalp hematoma changes of the posterior vertex. The underlying bony calvarium is grossly intact. The paranasal sinuses are clear. The mastoid air cells are well aerated. 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 Likely mild superficial posterior vertex scalp soft tissue swelling. Please note that all CT scans at this facility use dose modulation, iterative reconstruction, and/or weight-based dosing when appropriate to reduce radiation dose to as low as reasonably achievable. Dictated by Jon Medrano MD @ 03/29/2024 10:54:59 AM (Electronically Signed)
--- NOTE | 2024-03-29 10:07 | CRLHL7_ITS ---
For Patients: As a result of the Century Cures Act, medical imaging exams and procedure reports are released immediately into your electronic medical record. You may view this report before your referring provider. If you have questions, please contact your health care provider. Indication: Injury Technique: CT examination lumbosacral spine was performed. Imaging was acquired in the axial plane. Contrast was not administered. The study was acquired from the lower thoracic region through most but not all of the sacrum. Sagittal and coronal reformatted imaging was performed Comparison: None Findings: Demineralized osseous structures. Moderate to severe degenerative changes diffusely. No visible acute fracture, dislocation or destructive process. Atherosclerotic vascular calcifications. Distended bladder. Impression: Demineralization and degenerative change. No visible acute fracture, dislocation or destructive process. Please note that all CT scans at this facility use dose modulation, iterative reconstruction, and/or weight-based dosing when appropriate to reduce radiation dose to as low as reasonably achievable. Dictated by Mauri Vale MD @ 03/29/2024 10:59:17 AM (Electronically Signed)
--- NOTE | 2024-03-29 10:07 | CRLHL7_ITS ---
For Patients: As a result of the Century Cures Act, medical imaging exams and procedure reports are released immediately into your electronic medical record. You may view this report before your referring provider. If you have questions, please contact your health care provider. Indication: Fall Technique: Volumetric multidetector CT images of the cervical spine were obtained without the administration of IV contrast. Comparison: None available. Findings: The cervical vertebral body heights are grossly maintained with minimal endplate Schmorl`s defects. There is straightening of the normal cervical lordosis without evidence of significant spondylolisthesis. There is no displaced fracture or dislocation. There is moderate multilevel degenerative disc disease. 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 There is moderate facet arthrosis. There is focal coarse dystrophic calcification of the likely dura at the C5 level with minimal posterior effacement of the spinal canal. The paraspinous soft tissues are grossly within normal limits. 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 Please note that all CT scans at this facility use dose modulation, iterative reconstruction, and/or weight-based dosing when appropriate to reduce radiation dose to as low as reasonably achievable. Dictated by Jon Medrano MD @ 03/29/2024 10:59:34 AM (Electronically Signed)
--- NOTE | 2024-03-29 10:07 | CRLHL7_ITS ---
For Patients: As a result of the Century Cures Act, medical imaging exams and procedure reports are released immediately into your electronic medical record. You may view this report before your referring provider. If you have questions, please contact your health care provider. Indication: Injury Technique: CT examination of the thoracic spine was performed. Imaging was acquired from the thoracic inlet through the lung bases. Contrast was not administered. Sagittal and coronal reformatted imaging was performed. Comparison: None Findings: Soft tissues unrelated directly to the spine: Small thyroid nodules. Heart size normal. No mediastinal or hilar adenopathy or mass. There are atherosclerotic vascular and valvular calcifications. No visible pericardial effusion. No pneumothorax. Lung windows show evidence of remote granulomatous infection and left apical scarring. Osseous structures: Demineralized osseous structures. Moderate degenerative changes diffusely. No visible acute fracture, dislocation or destructive process regarding the thoracic spine. Impression: 1. No visible acute fracture, dislocation or destructive process regarding the thoracic spine. Demineralization and degenerative change. 2. Incidental findings unrelated to the osseous structures as discussed in the body of the report. Please note that all CT scans at this facility use dose modulation, iterative reconstruction, and/or weight-based dosing when appropriate to reduce radiation dose to as low as reasonably achievable. Dictated by Mauri Vale MD @ 03/29/2024 10:56:32 AM (Electronically Signed)
--- NOTE | 2024-03-29 10:13 | ED_ITS ---
HPI - General Adult General Chief complaint: Fall/Minor Trauma Stated complaint: Fall Time Seen by Provider: 03/29/24 09:40 Source: patient and EMS Mode of arrival: EMS Limitations: no limitations History of Present Illness HPI narrative: 88-year-old female brought in by EMS today after 2 unwitnessed falls this morning. Patient states that she does not know why she fell and can not tell me what she hit on the way down. She states that she feels fine, has no pain. EMS states she was complaining significant lower back pain, received fentanyl in the rig. Patient generally very poor historian. She does live independently with another elderly female. She states that she uses a walker to get around her house. Past Medical hx significant for hypertension, anxiety, atrial fibrillation on anticoagulation therapy. Related Data Home Medications ?Medication ?Instructions ?Recorded ?Confirmed amlodipine 10 mg tablet 10 mg PO DAILY 01/14/24 02/27/24 olmesartan 40 mg tablet 40 mg PO DAILY 01/14/24 02/27/24 atenolol 25 mg tablet 25 mg PO DAILY 02/27/24 02/27/24 Previous Rx's ?Medication ?Instructions ?Recorded acetaminophen 500 mg capsule 500 - 1,000 mg (1 - 2 x 500 mg) PO 01/19/24 Q6H PRN #100 caps apixaban 5 mg tablet (Eliquis) 2.5 mg (1/2 x 5 mg) PO BID #90 tabs 01/19/24 diazepam 5 mg tablet 2.5 mg (1/2 x 5 mg) PO BID PRN #12 01/19/24 tabs metoprolol tartrate 25 mg tablet 25 mg PO BID #60 tabs 01/19/24 sodium chloride 1,000 mg soluble 1,000 mg PO TIDWM #60 tabs 01/19/24 tablet Allergies Allergy/AdvReac Type Severity Reaction Status Date / Time No Known Drug Allergies Allergy Verified 02/27/24 10:51 Review of Systems Status of ROS: Reports: unobtainable due to medical condition [facility] Medical History Generalized anxiety disorder ?F41.1 - Generalized anxiety disorder (ICD-10) Hypertension ?I10 - Essential (primary) hypertension (ICD-10) Ulcerative colitis ?K51.90 - Ulcerative colitis, unspecified, without complications (ICD-10) Atrial fibrillation ?I48.91 - Unspecified atrial fibrillation (ICD-10) Surgical History 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 She lives on the top floor having to walk up a whole flight of stairs to get to where she lives. She has a female housemate who lives on the lower level. She is originally from [place] and moved to the [facility] about 40 years ago. She is now planning to move back to [place] with her family. Her healthcare power of city attorney is Robinson Rogers, her roommate and friend. Code status is full. She does not smoke and she does not drink. What is your current living situation?: I presently have a place to live Problems where you live: no known problems Problems where you live details: no known problems In the past 12 months, utilities in danger of being shut off: no In past 12 months, lack of transportation kept you from medical appts, meetings, work, or getting things needed for daily living: no In the past 12 mos, have been you worried that your food would run out before you had money to buy more?: never true In the past 12 mos, the food you bought just didn't last and you didn't have money to buy more?: never true Highest level of school completed/degree received: high school graduate Smoking Status: Former smoker What tobacco products do you use: cigarettes Smoking quit date/years: >15 years ago Do you use any of these nicotine containing products: None Second hand tobacco smoke exposure: No How often do you have a drink containing alcohol: never AUDIT-C Alcohol total score: 0 Non-prescribed substance use: denies use Caffeine: Yes How often does anyone, including family, friends and others, physically hurt you : never How often does anyone, including family, friends and others, insult or talk down to you: never How often does anyone, including family, friends and others, threaten you with harm: never How often does anyone, including family, friends and others, scream or curse at you: never service: No Exam Narrative: Exam Narrative: Thin, frail, elderly patient in no acute distress. Patient knows where she is. Answers questions appropriately. Mood and affect are appropriate. Patient speaks in full sentences without needing to catch her breath. GCS is 15. There are no outward signs of trauma. Patient has yellowish brown staining of the corner of her mouth with dried excretions going down her chin to her neck. She has multiple shirts on and has multiple areas of food/vomit across her shirts. HEENT: Normocephalic atraumatic. Pupils are equally round reactive to light. Extraocular muscles are intact. Conjunctivae are moist without any icterus noted. Moist mucous membranes. Posterior pharynx is normal. Neck is soft without tenderness. Cardiovascular: Heart is regular rate and rhythm S1 and S2 are present without any murmurs. Lungs: Clear to auscultation bilaterally no wheezes rhonchi or rales are appreciated. Patient takes deep breaths without any discomfort. Abdomen: Soft and nontender nondistended with normal bowel sounds. No guarding or rebound. Extremities: Bilateral lower extremities are without edema. Appear to be the same length without any internal or external rotation. She has no tenderness with manipulation of the pelvis. Skin: Well perfused, pale. Back: Has normal appearance. She has no tenderness to palpation of the cervical, thoracic or lumbar spine. She has a very difficult time going from a lying to a sitting position and requires assistance to do this, cannot do it on her own. Large Stage II sacral ulcer Const: Vital Signs, click to edit/add: Vital Signs - 24 hr 03/29/24 09:40 03/29/24 10:52 03/29/24 11:00 Temperature 97.0 F L Pulse Rate 98 Pulse Rate [Pulse Oximeter] 100 Respiratory Rate 18 14 Blood Pressure 117/65 Blood Pressure [Ri ght Upper Arm] 90/52 L Pulse Oximetry 95 97 98 Oxygen Delivery Me thod Room Air 03/29/24 11:02 03/29/24 11:32 Temperature Pulse Rate 95 98 Pulse Rate [Pulse Oximeter] Respiratory Rate 16 14 Blood Pressure 130/62 114/58 L Blood Pressure [Ri ght Upper Arm] Pulse Oximetry 97 97 Oxygen Delivery Me thod Course Course ED Course: Given the EMS report of back pain and 2 unwitnessed falls, I decided to do head, neck, and spine CTs. Blood pressure was also a bit low so IV was started and 500 mL of normal saline were given. EKG, read by me, shows atrial fibrillation with a pulse of 96. Blood work shows an elevated white cell count, looking through the patient's records looks like she has chronically elevated white cell counts. However, CRP is markedly elevated at 19. Normal LFTs. Normal lactate. Slightly low sodium at 132. UA pending at this time. CT head, cervical spine, thoracic spine and lumbar spine without any acute pathology. Discussed patient with Dr. Briones who will be accepting the patient for admission. At this time is very unsafe her to go home if she cannot get around by herself, can not even sit up in bed without assistance. Discussed with her and her telephone appointment clerk new living situation which telephone appointment clerk believes is a good idea as the elderly female who currently helps to take care of her is been having some shoulder issues and cannot take care of her very well. Vital Signs Vital signs: Initial Vital Signs Temperature 97.0 F L 03/29/24 09:40 Temperature Source Temporal Artery Scan 03/29/24 09:40 Pulse Rate 100 03/29/24 09:40 Pulse Rhythm Regular 03/29/24 09:40 Respiratory Rate 18 03/29/24 09:40 Blood Pressure 90/52 L 03/29/24 09:40 Blood Pressure Mean 64 L 03/29/24 09:40 Blood Pressure Position Sitting 03/29/24 09:40 Pulse Oximetry 95 03/29/24 09:40 Oxygen Delivery Method Room Air 03/29/24 09:40 Vital Signs Temperature 97.0 F L 03/29/24 09:40 Pulse Rate 100 03/29/24 09:40 Respiratory Rate 18 03/29/24 09:40 Blood Pressure 90/52 L 03/29/24 09:40 Pulse Oximetry 95 03/29/24 09:40 Oxygen Delivery Method Room Air 03/29/24 09:40 Temperature 97.0 F L 03/29/24 09:40 Pulse Rate 98 03/29/24 11:32 Respiratory Rate 14 03/29/24 11:32 Blood Pressure 114/58 L 03/29/24 11:32 Pulse Oximetry 97 03/29/24 11:32 Oxygen Delivery Method Room Air 03/29/24 09:40 Medications Administered Medications: Discontinued Medications Generic Name Dose Route Start Last Admin Trade Name Daleq PRN Reason Stop Dose Admin Sodium Chloride 500 mls @ 500 mls/hr 03/29/24 10:08 03/29/24 11:50 0.9 % Sodium Chloride 500 Ml IV 03/29/24 11:07 Infused .Q1H ONE Infusion Medical Decision Making MDM Narrative Medical decision making narrative: 88-year-old female status post fall, frail. Patient will be admitted for furthe r management. Lab Data Lab results reviewed: Yes I reviewed the patient's lab results Labs: Lab Results 03/29/24 Range/Units 10:48 WBC 14.99 H (4.50-11.00) K/uL RBC 3.46 L (4.00-5.20) m/uL Hgb 10.4 L (12.0-16.0) gm/dL Hct 31.8 L (33.0-51.0) % MCV 92 (80-100) fL MCH 30 (26-34) pg MCHC 33 (32-36) gm/dL RDW Coeff of Celina 13.1 (11.5-15.5) % Plt Count 371 (140-440) K/uL Neut % (Auto) 79.1 H (42.0-72.0) % Lymph % (Auto) 11.9 L (20-44) % Leslie % (Auto) 8.5 (0.0-11.0) % Eos % (Auto) 0.2 (0.0-7.0) % Baso % (Auto) 0.2 (0.0-3.0) % Neut # (Auto) 11.90 H (1.7-7.0) K/uL Lymph # (Auto) 1.80 (0.90-2.90) K/uL Leslie # (Auto) 1.30 H (0.00-0.90) K/UL Eos # (Auto) 0.00 (0.00-0.50) K/uL Baso # (Auto) 0.00 (0.00-0.30) K/uL Abs Immat Gran (auto) 0.00 (0.00-0.30) K/uL Imm/Tot Granulo (auto) 0.1 % Sodium 132 L (135-149) mmol/L Potassium 3.6 (3.6-5.1) mmol/L Chloride 98 (96-114) mmol/L Carbon Dioxide 23 (20-32) mmol/L Anion Gap 11 (7-15) mEq/L BUN 29 (7-30) mg/dL Creatinine 0.6 (0.5-1.5) mg/dL Estimated Creat Clear 28.92 Estimated GFR 87 ml/min Glucose 136 H (60-115) mg/dL Lactate 1.1 (0.5-1.9) mmol/L Calcium 9.8 (8.4-10.6) mg/dL Magnesium 2.1 (1.5-2.6) mg/dL Total Bilirubin 0.4 (0.1-1.5) mg/dL Direct Bilirubin 0.2 (0.0-0.5) mg/dL AST 29 (12-35) U/L ALT 14 (4-35) U/L Alkaline Phosphatase 84 (40-150) U/L Troponin I 0.04 (0.01-0.04) ng/mL C-Reactive Protein 19.1 H (0.5-1.0) mg/dL Total Protein 6.9 (6.0-8.3) g/dL Albumin 3.8 (3.3-5.0) g/dL Imaging Data CT scan - head: Attestation: I have reviewed the pertinent imaging results. Radiologist's impression: Fall Technique: Volumetric multidetector CT images of the head were obtained without the administration of low osmolar intravenous contrast. Comparison: None available Findings: There is no intra-axial or extra-axial fluid collection. There is no mass effect or midline shift. There is age-related cortical atrophy with moderate sulcal widening and ex vacuo dilatation of the lateral ventricles. There are chronic small vessel disease changes in the subcortical and periventricular white matter without lost hernandez-white differentiation. The orbits and their contents are grossly within normal limits. There is minimal superficial likely scalp hematoma changes of the posterior vertex. The underlying bony calvarium is grossly intact. The paranasal sinuses are clear. The mastoid air cells are well aerated. 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 Likely mild superficial posterior vertex scalp soft tissue swelling. CT cervical spine: Attestation: I have reviewed the pertinent imaging results. Radiologist's impression: Volumetric multidetector CT images of the cervical spine were obtained without the administration of IV contrast. Comparison: None available. Findings: The cervical vertebral body heights are grossly maintained with minimal endplate Schmorl`s defects. There is straightening of the normal cervical lordosis without evidence of significant spondylolisthesis. There is no displaced fracture or dislocation. There is moderate multilevel degenerative disc disease. 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 There is moderate facet arthrosis. There is focal coarse dystrophic calcification of the likely dura at the C5 level with minimal posterior effacement of the spinal canal. The paraspinous soft tissues are grossly within normal limits. 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 CT lumbar spine: Attestation: I have reviewed the pertinent imaging results. Radiologist's impression: CT examination lumbosacral spine was performed. Imaging was acquired in the axial plane. Contrast was not administered. The study was acquired from the lower thoracic region through most but not all of the sacrum. Sagittal and coronal reformatted imaging was performed Comparison: None Findings: Demineralized osseous structures. Moderate to severe degenerative changes diffus emily. No visible acute fracture, dislocation or destructive process. Atherosclerotic vascular calcifications. Distended bladder. Impression: Demineralization and degenerative change. No visible acute fracture, dislocation or destructive process. CT thoracic spine: Attestation: I have reviewed the pertinent imaging results. Radiologist's impression: Technique: CT examination of the thoracic spine was performed. Imaging was acquired from the thoracic inlet through the lung bases. Contrast was not administered. Sagittal and coronal reformatted imaging was performed. Comparison: None Findings: Soft tissues unrelated directly to the spine: Small thyroid nodules. Heart size normal. No mediastinal or hilar adenopathy or mass. There are atherosclerotic vascular and valvular calcifications. No visible pericardial effusion. No pneumothorax. Lung windows show evidence of remote granulomatous infection and left apical scarring. Osseous structures: Demineralized osseous structures. Moderate degenerative changes diffusely. No visible acute fracture, dislocation or destructive process regarding the thoracic spine. Impression: 1. No visible acute fracture, dislocation or destructive process regarding the thoracic spine. Demineralization and degenerative change. 2. Incidental findings unrelated to the osseous structures as discussed in the body of the report. ECG Data Attestation: I personally reviewed and interpreted this ECG as follows: Discharge Plan Discharge Clinical Impression: Weakness, Fall, Frail elderly Patient Disposition: Admitted As Observation Condition: Stable
[2024-03-29] MEDS: 0.9 % SODIUM CHLORIDE 500 ML 500 ML IV ×2 (10:50→15:27)
[2024-03-29 10:56] LABS: Basophils Percent Auto 0.2 % (0.0-3.0); Eosinophils Percent Auto 0.2 % (0.0-7.0); Hematocrit 31.8 % (33.0-51.0); Hemoglobin* 10.4 gm/dL (12.0-16.0); Immature Granulocytes Pct Auto 0.1 %; Lymphocytes Percent Auto 11.9 % (20-44); Mean Corpuscular HGB Conc 33 gm/dL (32-36); Mean Corpuscular Hemoglobin 30 pg (26-34); Mean Corpuscular Volume 92 fL (80-100); Monocytes Percent Auto 8.5 % (0.0-11.0); Neutrophils Percent Auto 79.1 % (42.0-72.0); Platelet Count* 371 K/uL (140-440); RDW Coefficient of Variation % 13.1 % (11.5-15.5); Red Blood Count 3.46 m/uL (4.00-5.20); White Blood Count* 14.99 K/uL (4.50-11.00)
[2024-03-29 10:57] LABS: Lactate* 1.1 mmol/L (0.5-1.9)
[2024-03-29 10:58] LABS: Slide Review Reflex No
[2024-03-29 11:14] LABS: Chloride* 98 mmol/L (96-114); Potassium* 3.6 mmol/L (3.6-5.1); Sodium* 132 mmol/L (135-149)
[2024-03-29 11:15] LABS: Albumin* 3.8 g/dL (3.3-5.0)
[2024-03-29 11:17] LABS: Anion Gap 11 mEq/L (7-15); Blood Urea Nitrogen* 29 mg/dL (7-30); Carbon Dioxide* 23 mmol/L (20-32); Creatinine* 0.6 mg/dL (0.5-1.5); Est. Creatinine Clearance* 28.92; Estimated Glomerular Filt Rate 87 ml/min; Glucose* 136 mg/dL (60-115)
[2024-03-29 11:18] LABS: Alanine Aminotransferase* 14 U/L (4-35); Alkaline Phosphatase* 84 U/L (40-150); Aspartate Amino Transferase* 29 U/L (12-35); Bilirubin Direct* 0.2 mg/dL (0.0-0.5); Bilirubin Total* 0.4 mg/dL (0.1-1.5); Calcium* 9.8 mg/dL (8.4-10.6); Magnesium* 2.1 mg/dL (1.5-2.6); Total Protein* 6.9 g/dL (6.0-8.3)
[2024-03-29 11:30] LABS: Troponin I* 0.04 ng/mL (0.01-0.04)
[2024-03-29 11:55] LABS: C Reactive Protein* 19.1 mg/dL (0.5-1.0)
--- NOTE | 2024-03-29 12:41 | P.IMHP_ITS ---
Hospitalist- H&P: HPI History of Present Illness Date Seen: 03/29/24 Chief complaint: Fall Narrative: Linda Cruz is a 88 year old female BIBA to the ER this morning after falling at home. Per report, she had fallen twice; any tells me she fell once at home, reaching for something that was far from her walker. She denies loss of consciousness. She is anticoagulated on Eliquis for a history of AFib. ER Course and Findings: - [facility] - no acute abnormalities on imaging of head, C/T/L Spine - WBC 14 with PMN predominance, CRP 19 - BP 90/52, Pulse 100-110s, afebrile - afib on EKG - sacral wound noted (pt unaware that she had this) Unable to ambulate in the ED, admitted for weakness and abnormalities as noted above. Linda denies any recent illness or fever. She was notably admitted to the hospital in January after a fall and sustained a hip fracture, requiring repair. After that stay, she was admitted to [facility] for rehab for approximately 10 days. She has been home since early February; lives independently with a roommate. Histories updated below, PCP is Kvng Ro at the [facility]. Review of Systems Status of ROS: Reports: 10 or more systems reviewed and unremarkable except as noted in History and below Narrative: - eating well, denies abdominal pain or nausea - denies CP or dyspnea - does her own meds at home, per her report - no weight changes PFSH PFS Medical History (Updated 03/29/24 @ 13:56 by Iraida Alcocer MD) Normocytic anemia ?D64.9 - Anemia, unspecified (ICD-10) Generalized anxiety disorder ?F41.1 - Generalized anxiety disorder (ICD-10) Hypertension ?I10 - Essential (primary) hypertension (ICD-10) Ulcerative colitis ?K51.90 - Ulcerative colitis, unspecified, without complications (ICD-10) Atrial fibrillation ?I48.91 - Unspecified atrial fibrillation (ICD-10) Surgical History 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 She lives on the top floor having to walk up a whole flight of stairs to get to where she lives. She has a female housemate who lives on the lower level. She is originally from [place] and moved to the [facility] about 40 years ago. She is now planning to move back to [place] with her family. Her healthcare power of trade mark attorney is Robinson Velasqueze, her roommate and friend. Code status is full. She does not smoke and she does not drink. What is your current living situation?: I presently have a place to live Problems where you live: no known problems Problems where you live details: no known problems In the past 12 months, utilities in danger of being shut off: no In past 12 months, lack of transportation kept you from medical appts, meetings, work, or getting things needed for daily living: no In the past 12 mos, have been you worried that your food would run out before you had money to buy more?: never true In the past 12 mos, the food you bought just didn't last and you didn't have money to buy more?: never true Highest level of school completed/degree received: high school graduate Smoking Status: Former smoker What tobacco products do you use: cigarettes Smoking quit date/years: >15 years ago Do you use any of these nicotine containing products: None Second hand tobacco smoke exposure: No How often do you have a drink containing alcohol: never AUDIT-C Alcohol total score: 0 Non-prescribed substance use: denies use Caffeine: Yes How often does anyone, including family, friends and others, physically hurt you : never How often does anyone, including family, friends and others, insult or talk down to you: never How often does anyone, including family, friends and others, threaten you with harm: never How often does anyone, including family, friends and others, scream or curse at you: never service: No Meds Home Medications and Allergies Home Medications ?Medication ?Instructions ?Recorded ?Confirmed ?Type amlodipine 10 mg tablet 10 mg PO DAILY 01/14/24 03/29/24 History acetaminophen 325 mg tablet 650 mg PO TID 03/29/24 03/29/24 History cholecalciferol (vitamin D3) 50 50 mcg PO DAILY 03/29/24 03/29/24 History mcg (2,000 unit) capsule ferrous sulfate 325 mg (65 mg 325 mg PO DAILY 03/29/24 03/29/24 History iron) tablet,delayed release magnesium gluconate 27 mg 27 mg PO BID 03/29/24 03/29/24 History magnesium (500 mg) tablet olmesartan 20 mg tablet 20 mg PO DAILY 03/29/24 03/29/24 History oxycodone 5 mg tablet 2.5 mg PO Q4H PRN 03/29/24 03/29/24 History sennosides 8.6 mg tablet (senna) 8.6 mg PO HS 03/29/24 03/29/24 History Allergies Allergy/AdvReac Type Severity Reaction Status Date / Time No Known Drug Allergies Allergy Verified 02/27/24 10:51 Exam Narrative: Exam Narrative: GEN: Alert and answering questions appropriately, may be confused (notes that family is coming from [place] to visit today, which I am unable to confirm) HEENT: EOMIs bilaterally, no scleral icterus CV: Irregularly irregular rhythm, rate 100s, no concerning murmurs R: LCTA bilaterally without concerning wheezing, air movement adequate Ab: Soft, nontender to palpation Ext: Thin extremities with normal capillary refill Skin: Skin breakdown over sacrum with surrounding erythema, c/w Stage 2/3. No active drainage, + ttp Neuro: No focal deficits on limited exam, no resting tremor Psych: No agitation Const: Vital Signs, click to edit/add: Vital Signs - 24 hr 03/29/24 09:40 03/29/24 10:52 03/29/24 11:00 Temperature 97.0 F L Pulse Rate 98 Pulse Rate [Pulse Oximeter] 100 Respiratory Rate 18 14 Blood Pressure 117/65 Blood Pressure [Ri ght Upper Arm] 90/52 L Pulse Oximetry 95 97 98 Oxygen Delivery Me thod Room Air 03/29/24 11:02 03/29/24 11:32 Temperature Pulse Rate 95 98 Pulse Rate [Pulse Oximeter] Respiratory Rate 16 14 Blood Pressure 130/62 114/58 L [facility] Pulse Oximetry 97 97 Oxygen Delivery Oh thod Hospitalist - H&P: Result Labs Labs: Short CBC 03/29/24 Range/Units 10:48 WBC 14.99 H (4.50-11.00) K/uL Hgb 10.4 L (12.0-16.0) gm/dL Hct 31.8 L (33.0-51.0) % Plt Count 371 (140-440) K/uL BMP 03/29/24 10:48 Sodium 132 L Potassium 3.6 Chloride 98 Carbon Dioxide 23 BUN 29 Creatinine 0.6 Glucose 136 H Calcium 9.8 Cardiac Enzymes 03/29/24 Range/Units 10:48 Troponin I 0.04 (0.01-0.04) ng/mL Liver Function 03/29/24 Range/Units 10:48 Total Bilirubin 0.4 (0.1-1.5) mg/dL Direct Bilirubin 0.2 (0.0-0.5) mg/dL AST 29 (12-35) U/L ALT 14 (4-35) U/L Alkaline Phosphatase 84 (40-150) U/L Albumin 3.8 (3.3-5.0) g/dL Assessment and Plan Assessment and plan (1) Fall: Problem comment: - mechanical/deconditioning vs related to acute infectious process vs arrythmia vs iatrogenic (on BID Valium) - telemetry, PT and OT evaluations Status: Acute (2) Sepsis: Problem comment: - as evidenced by hypotension, tachycardia, leukocytosis, elevated CRP, sacral wound with surrounding erythema - added lactate and blood culture to ER labs - wound culture from sacral wound pending, will order UA and culture as well - Vancomycin initiated 03/29, narrow pending results from wound/blood/urine cultures - given 500mL bolus in ER, will repeat x1 and follow closely Status: Acute (3) Sacral decubitus ulcer, stage III: Problem comment: - wound culture - Vancomycin (03/29/24) Status: Acute (4) Leukocytosis: Problem comment: - noted during recent stay at [facility] (+ E Coli UTI at that time) with PMN predominance - related to acute infection vs chronic condition (also anemic); concern for infectious process given elevated WBC + hypotension + tachycardia (UTI vs sacral ulcer) - peripheral smear ordered to evaluate - urine culture ordered and pending Status: Acute (5) Frail elderly: Status: Acute (6) Generalized anxiety disorder: Problem comment: - as an outpatient, takes 2.5mg Diazepam BID - will try to limit benzos during stay given age, comorbidities, and fall risk (ordered 0.5mg Lorazepam Q6H prn) Status: Acute (7) Hypertension: Problem comment: - home medications of Olmesartan, Metoprolol, Amlodipine - hypotensive on arrival to ED 03/29/24, holding Olmesartan and Amlodipine - will continue Metoprolol with holding parameters Status: Acute (8) Atrial fibrillation with rapid ventricular response: Problem comment: - rate controlled on Metoprolol, anticoagulated on Eliquis - last TTE 01/2024: Final Impressions: 1. Technically limited exam. 2. Normal LV size, mildly increased wall thickness, hyperdynamic global systolic function with an estimated EF of 70 - 75%. 3. Right ventricular cavity size is normal, global systolic RV function is normal. 4. Normal left atrium size. 5. The aortic valve is sclerotic, no stenosis and trivial regurgitation. 6. The mitral valve is sclerotic, trace mitral regurgitation. 7. Tricuspid valve is normal. 8. Mildly increased estimated pulmonary pressures by tricuspid regurgitation velocity and right atrial pressure (35 mmHg plus RAP). 9. No pericardial effusion. Status: Acute (9) Normocytic anemia: Problem comment: - no evidence of acute bleeding, continue to follow Hgb, peripheral smear per above Status: Acute (10) Hyponatremia: Problem comment: - history of Na as low as 124 in January 2024, noted to be 132 on admission 03/29/24 Status: Acute
[2024-03-29 13:45] LABS: Lactate* 0.8 mmol/L (0.5-1.9)
--- NOTE | 2024-03-29 13:48 | PC.NURSE ---
Sacral Wound Noted and assessed upon admission: See photo
[2024-03-29 13:57] LABS: Immature Reticulocyte Fraction 13.7 % (3.0-15.9); Reticulocyte Hemoglobin Equivi 27.1 pg (29.0-35.0); Reticulocyte Percent 0.9 % (0.5-2.0); Reticulocytes Absolute 0.03 # (0.03-0.08)
[2024-03-29 14:32] LABS: Appearance Urine Slightly Cloudy (Clear); Bilirubin Urine Negative (Negative); Blood Urine Negative (Negative); Color Urine Yellow (Yellow); Glucose Urine Negative (Negative); Ketones Urine 2+ (Negative); Leukocyte Esterase Urine Negative (Negative); Nitrite Urine Negative (Negative); Protein Urine 1+ (Negative); Urobilinogen Urine 0.2 (0.2-1.0); pH Urine 5.5 (5.0-8.5)
[2024-03-29 14:46] LABS: Bacteria Urine Moderate; RBC Urine 0-2 (0-2); Squamous Epithelial Cell Urine Few (None-Few); WBC Urine 0-2 (0-5)
[2024-03-29] MEDS: VANCOMYCIN 1 GM/200 ML 1 GM/200 ML PIGGYBACK IVPB (15:27)
[2024-03-29] MEDS: ACETAMINOPHEN 325 MG TABLET 975 MG PO (18:09)
[2024-03-29] MEDS: DIGOXIN 250 MCG TABLET PO (18:09)
[2024-03-29] MEDS: SODIUM CHLORIDE 1 GM TABLET PO (18:09)
[2024-03-29] MEDS: 0.9 % SODIUM CHLORIDE 1000 ml 1,000 ML 75 ML IV (18:09)
[2024-03-29] MEDS: METOPROLOL TARTRATE 1 MG/ML inj 2.5 MG IVP (18:13)
--- NOTE | 2024-03-29 19:45 | PC.NURSE ---
End of Shift: The patient is noted to be alert to self and place only upon admission. The patient reports mild pain in her sacrum, although tolerable. The patient was unaware of her wound bottom, see pictures in the chart, it was cleansed and mepilex was applied. Ax2 w/ GB and 2 wheel walker to commode for voiding. Up to the chair for a late lunch this evening. Afib w/ RVR was noted and reported to MD. Dig and PRN metoprolol IV was given... seems to be holding <100 bpm. The patient is now resting in bed, alarms in place and call light within reach. N/S infusing @ 75 hr. PO intake is reassuring. Geovanna KOROMA BSN
[2024-03-29] MEDS: MAGNESIUM OXIDE 400 MG TABLET 200 MG PO (20:50)
[2024-03-29] MEDS: METOPROLOL TARTRATE 25 MG TABLET PO (20:51)
[2024-03-29] MEDS: APIXABAN 5 MG TABLET 2.5 MG PO (20:51)
[2024-03-30] VITALS (7 sets, daily range): BP systolic 100–137; BP diastolic 52–67; PULSE 67–103; RESP 16–18; TEMP 36.4–36.7; O2SAT 95–98
[2024-03-30] MEDS: VANCOMYCIN 750 MG in 0.9 % SODIUM CHLORIDE 250 ml 250 ML 257.5 MG IVPB (02:27)
--- NOTE | 2024-03-30 05:06 | PC.NURSE ---
Shift note: Pt has been in bed throughout the shift. Turn and reposition every 2 hours. Mepilex to the coccyx appeared clean and dry. Alert and oriented to self and place. No fall attempted observed. Pt takes pill whole preferably with applesauce. No fever observed. Pt had adequate sleep and appeared week. Vitally stable.
[2024-03-30] MEDS: 0.9 % SODIUM CHLORIDE 1000 ml 1,000 ML 75 ML IV (05:45)
[2024-03-30 08:05] LABS: Basophils Percent Auto 0.2 % (0.0-3.0); Eosinophils Percent Auto 1.4 % (0.0-7.0); Hematocrit 28.7 % (33.0-51.0); Hemoglobin* 9.2 gm/dL (12.0-16.0); Immature Granulocytes Pct Auto 0.7 %; Mean Corpuscular HGB Conc 32 gm/dL (32-36); Mean Corpuscular Hemoglobin 30 pg (26-34); Mean Corpuscular Volume 95 fL (80-100); Monocytes Percent Auto 6.5 % (0.0-11.0); Neutrophils Percent Auto 73.2 % (42.0-72.0); Platelet Count* 358 K/uL (140-440); RDW Coefficient of Variation % 13.3 % (11.5-15.5); Red Blood Count 3.03 m/uL (4.00-5.20); White Blood Count* 11.98 K/uL (4.50-11.00)
[2024-03-30] MEDS: MAGNESIUM OXIDE 400 MG TABLET 200 MG PO ×2 (08:06→20:22)
[2024-03-30] MEDS: SODIUM CHLORIDE 0.9 % (FLUSH) 10 ML SYRINGE 5 ML IVF ×2 (08:06→20:23)
[2024-03-30] MEDS: DIGOXIN 125 MCG TABLET PO (08:07)
[2024-03-30] MEDS: APIXABAN 5 MG TABLET 2.5 MG PO ×2 (08:07→20:21)
[2024-03-30] MEDS: METOPROLOL TARTRATE 25 MG TABLET PO ×2 (08:08→20:22)
[2024-03-30] MEDS: FERROUS SULFATE 325 MG TABLET PO (08:08)
[2024-03-30] MEDS: SODIUM CHLORIDE 1 GM TABLET PO ×3 (08:08→18:10)
[2024-03-30 08:16] LABS: Chloride* 105 mmol/L (96-114)
[2024-03-30 08:17] LABS: Albumin* 3.1 g/dL (3.3-5.0); Potassium* 3.9 mmol/L (3.6-5.1); Slide Review Reflex No; Sodium* 134 mmol/L (135-149)
[2024-03-30 08:20] LABS: Alanine Aminotransferase* 15 U/L (4-35); Alkaline Phosphatase* 69 U/L (40-150); Anion Gap 7 mEq/L (7-15); Aspartate Amino Transferase* 27 U/L (12-35); Bilirubin Total* 0.1 mg/dL (0.1-1.5); Blood Urea Nitrogen* 26 mg/dL (7-30); Carbon Dioxide* 22 mmol/L (20-32); Creatinine* 0.5 mg/dL (0.5-1.5); Est. Creatinine Clearance* 30.47; Estimated Glomerular Filt Rate 91 ml/min; Glucose* 112 mg/dL (60-115)
[2024-03-30 08:21] LABS: Calcium* 8.7 mg/dL (8.4-10.6)
--- NOTE | 2024-03-30 08:59 | PM.IMPN1 ---
Progress Note: A&P Assessment and plan (1) Fall: Problem details: - mechanical/deconditioning vs related to acute infectious process vs arrythmia vs iatrogenic (on BID Valium) - telemetry, PT and OT evaluations Status: Acute (2) Sepsis: Problem details: - as evidenced by hypotension, tachycardia, leukocytosis, elevated CRP, sacral wound with surrounding erythema - lactate normal, Blood, Wound, and Urine cultures NGTD - Vancomycin initiated 03/29, narrow to Cefazolin on 03/30 given clinical improvement - stable on 03/30 and tolerating po intake well, IVFs discontinued Status: Acute (3) Sacral decubitus ulcer, stage III: Problem details: - wound culture pending - Vancomycin (03/29/24) --> Cefazolin 03/30 Status: Acute (4) Leukocytosis: Problem details: - noted during recent stay at [facility] (+ E Coli UTI at that time) with PMN predominance - related to acute infection vs chronic condition (also anemic); concern for infectious process given elevated WBC + hypotension + tachycardia (UTI vs sacral ulcer) - peripheral smear pending Status: Acute (5) Frail elderly: Status: Acute (6) Generalized anxiety disorder: Problem details: - as an outpatient, takes 2.5mg Diazepam BID - will try to limit benzos during stay given age, comorbidities, and fall risk (ordered 0.5mg Lorazepam Q6H prn) Status: Acute (7) Hypertension: Problem details: - home medications of Olmesartan, Metoprolol, Amlodipine - hypotensive on arrival to ED 03/29/24, holding Olmesartan and Amlodipine - will continue Metoprolol with holding parameters Status: Acute (8) Atrial fibrillation with rapid ventricular response: Problem details: - rate controlled on Metoprolol, anticoagulated on Eliquis - 03/29: HR up to 130s, given Digoxin - 03/30: improved with HR 60s and improved BP; stopped Digoxin and continue monotherapy with Metoprolol. Continue Telemetry - last TTE 01/2024: Final Impressions: 1. Technically limited exam. 2. Normal LV size, mildly increased wall thickness, hyperdynamic global systolic function with an estimated EF of 70 - 75%. 3. Right ventricular cavity size is normal, global systolic RV function is normal. 4. Normal left atrium size. 5. The aortic valve is sclerotic, no stenosis and trivial regurgitation. 6. The mitral valve is sclerotic, trace mitral regurgitation. 7. Tricuspid valve is normal. 8. Mildly increased estimated pulmonary pressures by tricuspid regurgitation velocity and right atrial pressure (35 mmHg plus RAP). 9. No pericardial effusion. Status: Acute (9) Normocytic anemia: Problem details: - no evidence of acute bleeding, continue to follow Hgb, peripheral smear per above Status: Acute (10) Hyponatremia: Problem details: - history of Na as low as 124 in January 2024, noted to be 132 on admission 03/29/24 - 03/30/24: 134, continue po intake Status: Acute Plan - per above - SNF vs home pending clinical course Subjective Date Seen: 03/30/24 Interval history: Linda is an 88 yo female with a history of a fib was admitted to the hospital yesterday for weakness and a fall at home, noted to have hypotension, tachycardia (a fib with RVR), leukocytosis, elevated CRP. Also found to have a new coccyx wound with surrounding erythema, Vancomycin empirically initiated for concern of sepsis. After admission, HR increased to 120s, Digoxin initiated. Today, she is feeling better. HR and BP both improved, WBC trending downward, remains afebrile. She has eaten breakfast and has no abdominal pain. Continues to have mild coccygeal discomfort, no other concerns for hospitalist team. Exam Narrative: Exam Narrative: GEN: Alert and sitting in bedside chair having breakfast HEENT: EOMIs bilaterally, no scleral icterus CV: Rate controlled atrial fibrillation (HR 70s) R: LCTA bilaterally without concerning wheezing, air movement adequate of Ext: wwp, no concerning edema Skin: Sacral wound not formally examined (covered by nursing staff), no other concerning skin lesions noted Neuro: No focal deficits Psych: Appropriate, MCI evident Const: Vital Signs, click to edit/add: Vital Signs - 24 hr 03/29/24 09:40 03/29/24 10:52 03/29/24 11:00 Temperature 97.0 F L Pulse Rate 98 Pulse Rate [Pulse Oximeter] 100 Respiratory Rate 18 14 Blood Pressure 117/65 Blood Pressure [Ri ght Arm] Blood Pressure [Ri ght Upper Arm] 90/52 L Pulse Oximetry 95 97 98 Oxygen Delivery Me thod Room Air 03/29/24 11:02 03/29/24 11:32 03/29/24 12:02 Temperature Pulse Rate 95 98 108 H Pulse Rate [Pulse Oximeter] Respiratory Rate 16 14 18 Blood Pressure 130/62 114/58 L 133/63 Blood Pressure [Ri ght Arm] Blood Pressure [Ri ght Upper Arm] Pulse Oximetry 97 97 96 Oxygen Delivery Me thod 03/29/24 12:32 03/29/24 13:05 03/29/24 13:30 Temperature 97.0 F L 98.0 F Pulse Rate 96 Pulse Rate [Pulse Oximeter] 100 102 H Respiratory Rate 16 16 16 Blood Pressure 127/65 Blood Pressure [Ri ght Arm] 106/57 L Blood Pressure [Ri ght Upper Arm] 90/52 L Pulse Oximetry 96 98 Oxygen Delivery Me thod Room Air 03/29/24 13:30 03/29/24 15:30 03/29/24 15:30 Temperature 98.0 F Pulse Rate Pulse Rate [Pulse Oximeter] 109 H 108 H Respiratory Rate 16 Blood Pressure Blood Pressure [Ri ght Arm] 92/53 L Blood Pressure [Ri ght Upper Arm] Pulse Oximetry 96 Oxygen Delivery Me thod Room Air Room Air 03/29/24 16:00 03/29/24 16:30 03/29/24 18:09 Temperature Pulse Rate 106 H 110 H Pulse Rate [Pulse Oximeter] 120 H Respiratory Rate Blood Pressure Blood Pressure [Ri ght Arm] 112/62 Blood Pressure [Ri ght Upper Arm] Pulse Oximetry Oxygen Delivery Me thod 03/29/24 19:00 03/29/24 22:32 03/29/24 22:32 Temperature 98.1 F 98.1 F Pulse Rate Pulse Rate [Pulse Oximeter] 93 75 75 Respiratory Rate 16 16 16 Blood Pressure Blood Pressure [Ri ght Arm] 107/59 L 103/56 L Blood Pressure [Ri ght Upper Arm] Pulse Oximetry 94 96 Oxygen Delivery Me thod Room Air Room Air 03/29/24 23:00 03/30/24 02:29 03/30/24 07:00 Temperature 98.1 F Pulse Rate 70 88 Pulse Rate [Pulse Oximeter] 68 Respiratory Rate 16 Blood Pressure Blood Pressure [Ri ght Arm] 110/60 Blood Pressure [Ri ght Upper Arm] Pulse Oximetry 95 Oxygen Delivery Me thod Room Air 03/30/24 07:00 03/30/24 07:00 03/30/24 08:07 Temperature 97.6 F Pulse Rate 84 Pulse Rate [Pulse Oximeter] 84 84 Respiratory Rate 18 18 Blood Pressure Blood Pressure [Ri ght Arm] 127/66 Blood Pressure [Ri ght Upper Arm] Pulse Oximetry 97 Oxygen Delivery Me thod Room Air Labs Labs: Laboratory Results - last 24 hr 03/29/24 03/29/24 03/29/24 10:48 13:40 14:15 WBC 14.99 H RBC 3.46 L Hgb 10.4 L Hct 31.8 L MCV 92 MCH 30 MCHC 33 RDW Coeff of Celina 13.1 Plt Count 371 Neut % (Auto) 79.1 H Lymph % (Auto) 11.9 L Pettis % (Auto) 8.5 Eos % (Auto) 0.2 Baso % (Auto) 0.2 Neut # (Auto) 11.90 H Lymph # (Auto) 1.80 Pettis # (Auto) 1.30 H Eos # (Auto) 0.00 Baso # (Auto) 0.00 Abs Immat Gran (auto) 0.00 Imm/Tot Granulo (auto) 0.1 Absolute Retic 0.03 Percent Retic 0.9 Immature Retic Fraction 13.7 Retic Hgb Equivalent 27.1 L Sodium 132 L Potassium 3.6 Chloride 98 Carbon Dioxide 23 Anion Gap 11 BUN 29 Creatinine 0.6 Estimated Creat Clear 28.92 Estimated GFR 87 Glucose 136 H Lactate 1.1 0.8 Calcium 9.8 Magnesium 2.1 Total Bilirubin 0.4 Direct Bilirubin 0.2 AST 29 ALT 14 Alkaline Phosphatase 84 Troponin I 0.04 C-Reactive Protein 19.1 H Total Protein 6.9 Albumin 3.8 Urine Color Yellow Urine Appearance Slightly Cloudy A Urine pH 5.5 Ur Specific Crosby 1.020 Urine Protein 1+ A Urine Glucose (UA) Negative Urine Ketones 2+ A Urine Blood Negative Urine Nitrite Negative Urine Bilirubin Negative Urine Urobilinogen 0.2 Ur Leukocyte Esterase Negative Urine RBC 0-2 Urine WBC 0-2 Ur Squamous Epith Cells Few Urine Bacteria Moderate A 03/30/24 07:58 WBC 11.98 H RBC 3.03 L Hgb 9.2 L Hct 28.7 L MCV 95 MCH 30 MCHC 32 RDW Coeff of Celina 13.3 Plt Count 358 Neut % (Auto) 73.2 H Lymph % (Auto) 18.0 L Pettis % (Auto) 6.5 Eos % (Auto) 1.4 Baso % (Auto) 0.2 Neut # (Auto) 8.80 H Lymph # (Auto) 2.20 Pettis # (Auto) 0.80 Eos # (Auto) 0.20 Baso # (Auto) 0.00 Abs Immat Gran (auto) 0.10 Imm/Tot Granulo (auto) 0.7 Absolute Retic Percent Retic Immature Retic Fraction Retic Hgb Equivalent Sodium 134 L Potassium 3.9 Chloride 105 Carbon Dioxide 22 Anion Gap 7 BUN 26 Creatinine 0.5 Estimated Creat Clear 30.47 Estimated GFR 91 Glucose 112 Lactate Calcium 8.7 Magnesium Total Bilirubin 0.1 Direct Bilirubin AST 27 ALT 15 Alkaline Phosphatase 69 Troponin I C-Reactive Protein Total Protein 6.0 Albumin 3.1 L Urine Color Urine Appearance Urine pH Ur Specific Crosby Urine Protein Urine Glucose (UA) Urine Ketones Urine Blood Urine Nitrite Urine Bilirubin Urine Urobilinogen Ur Leukocyte Esterase Urine RBC Urine WBC Ur Squamous Epith Cells Urine Bacteria
[2024-03-30 09:40] LABS: C Reactive Protein* 12.9 mg/dL (0.5-1.0)
[2024-03-30] MEDS: CEFAZOLIN 1 GM in 0.9 % SODIUM CHLORIDE Mini-bag 100 ML IVPB ×2 (10:53→18:10)
--- NOTE | 2024-03-30 18:47 | PC.NURSE ---
End of shift [id number]: Pt has been alert & oriented to self, place and situation. She has been disoriented to time & date. VSS and afebrile. No c/o pain, nausea or dizziness. She is Ax1 with gait belt & walker. Pt has intermittent confusion & sets off her bed alarm but also uses the call light at times. She has a chronic sacral ulcer (images in chart) with a 4x[address] C/D/I. New PIV placed in left FA today SL. TELE has been A. Fib NVR with BBB. IV Vancomycin changed to IV Cefazolin q8H and PO Digoxin was discontinued. ?
[2024-03-31] VITALS (7 sets, daily range): BP systolic 108–156; BP diastolic 68–85; PULSE 79–111; RESP 16–18; TEMP 36.6–36.9; O2SAT 95–97
[2024-03-31] MEDS: CEFAZOLIN 1 GM in 0.9 % SODIUM CHLORIDE Mini-bag 100 ML IVPB ×2 (01:51→12:43)
[2024-03-31] MEDS: SODIUM CHLORIDE 0.9 % (FLUSH) 10 ML SYRINGE 5 ML IVF ×2 (01:52→09:36)
--- NOTE | 2024-03-31 05:32 | PC.NURSE ---
[id number] Pt pleasant and cooperative, needs a little bit of redirecting with environment and directions to the br, but very directable. denied pain this shift, ambulating well with walker, GB, 1A. slept on and off during the night. mepilex to sacral ulcer C/D/I.
[2024-03-31 07:00] LABS: Basophils Absolute Auto 0.04 K/uL (0.00-0.30); Basophils Percent Auto 0.4 % (0.0-3.0); Eosinophils Absolute Auto 0.31 K/uL (0.00-0.50); Eosinophils Percent Auto 2.8 % (0.0-7.0); Hematocrit 28.7 % (33.0-51.0); Hemoglobin* 9.1 gm/dL (12.0-16.0); Immature Granulocytes Abs Auto 0.02 K/uL (0.00-0.30); Immature Granulocytes Pct Auto 0.2 %; Lymphocytes Percent Auto 19.6 % (20-44); Mean Corpuscular HGB Conc 32 gm/dL (32-36); Mean Corpuscular Hemoglobin 30 pg (26-34); Mean Corpuscular Volume 94 fL (80-100); Monocytes Percent Auto 7.6 % (0.0-11.0); Neutrophils Percent Auto 69.4 % (42.0-72.0); Platelet Count* 385 K/uL (140-440); RDW Coefficient of Variation % 13.2 % (11.5-15.5); Red Blood Count 3.04 m/uL (4.00-5.20); White Blood Count* 10.94 K/uL (4.50-11.00)
[2024-03-31 07:19] LABS: Chloride* 101 mmol/L (96-114); Potassium* 3.7 mmol/L (3.6-5.1); Sodium* 130 mmol/L (135-149)
[2024-03-31 07:22] LABS: Anion Gap 5 mEq/L (7-15); Blood Urea Nitrogen* 16 mg/dL (7-30); Calcium* 8.6 mg/dL (8.4-10.6); Carbon Dioxide* 24 mmol/L (20-32); Creatinine* 0.5 mg/dL (0.5-1.5); Est. Creatinine Clearance* 29.22; Estimated Glomerular Filt Rate 91 ml/min; Glucose* 114 mg/dL (60-115)
[2024-03-31 07:38] LABS: Slide Review Reflex No
--- NOTE | 2024-03-31 08:48 | PM.IMPN1 ---
Progress Note: A&P Assessment and plan (1) Fall: Problem details: - mechanical/deconditioning vs related to acute infectious process vs arrythmia vs iatrogenic (on BID Valium) - telemetry, PT and OT evaluations Status: Acute (2) Sepsis: Problem details: - as evidenced by hypotension, tachycardia, leukocytosis, elevated CRP, sacral wound with surrounding erythema - lactate normal, Blood, Wound, and Urine cultures NGTD - Vancomycin initiated 03/29, narrow to Cefazolin on 03/30 given clinical improvement - stable on 03/30 and tolerating po intake well, IVFs discontinued Status: Acute (3) Sacral decubitus ulcer, stage III: Problem details: - with surrounding cellulitis, wound culture reveals small amount of coag - staph + strep - Vancomycin (03/29/24) --> Cefazolin 03/30 Status: Acute (4) Leukocytosis: Problem details: - noted during recent stay at [facility] (+ E Coli UTI at that time) with PMN predominance - related to acute infection vs chronic condition (also anemic); concern for infectious process given elevated WBC + hypotension + tachycardia (UTI vs sacral ulcer) - peripheral smear pending - normalized 03/31/24 Status: Acute (5) Frail elderly: Status: Acute (6) Generalized anxiety disorder: Problem details: - as an outpatient, takes 2.5mg Diazepam BID - will try to limit benzos during stay given age, comorbidities, and fall risk (ordered 0.5mg Lorazepam Q6H prn) Status: Acute (7) Hypertension: Problem details: - home medications of Olmesartan, Metoprolol, Amlodipine - hypotensive on arrival to ED 03/29/24, holding Olmesartan and Amlodipine - Metoprolol increased from 25mg BID--> 50mg BID on 03/31/24 for elevated HR Status: Acute (8) Atrial fibrillation with rapid ventricular response: Problem details: - rate controlled on Metoprolol, anticoagulated on Eliquis - 03/29: HR up to 130s, given Digoxin - 03/30: improved with HR 60s and improved BP; stopped Digoxin and continue monotherapy with Metoprolol. Continue Telemetry - 03/31: HR 90-110s, BP improved. Continue to hold Amlodipine and Olmesartan, increase Metoprolol from 25mg BID --> 50mg BID - last TTE 01/2024: Final Impressions: 1. Technically limited exam. 2. Normal LV size, mildly increased wall thickness, hyperdynamic global systolic function with an estimated EF of 70 - 75%. 3. Right ventricular cavity size is normal, global systolic RV function is normal. 4. Normal left atrium size. 5. The aortic valve is sclerotic, no stenosis and trivial regurgitation. 6. The mitral valve is sclerotic, trace mitral regurgitation. 7. Tricuspid valve is normal. 8. Mildly increased estimated pulmonary pressures by tricuspid regurgitation velocity and right atrial pressure (35 mmHg plus RAP). 9. No pericardial effusion. Status: Acute (9) Normocytic anemia: Problem details: - no evidence of acute bleeding, continue to follow Hgb (per chart review, baseline 9-11, current Hgb 9.2) Status: Acute (10) Hyponatremia: Problem details: - history of Na as low as 124 in January 2024, has been 130-134 during stay Status: Acute Plan - per above - likely medically appropriate for SNF d/c in 1-2 days Subjective Date Seen: 03/31/24 Interval history: Linda is an 88 yo female with a history of a fib, anticoagulated on Eliquis, who was admitted to the hospital on 03/29 for weakness and a fall at home. Upon arrival to ER, noted to have hypotension, tachycardia (a fib with RVR), leukocytosis, and an elevated CRP, in addition to a new coccyx wound with surrounding erythema. IVFs given and Vancomycin empirically initiated for concern of sepsis. On hospital day 1, improved VS and WBC; Vancomycin narrowed to Cefazolin. Remains afebrile. She continues to feel a little better each day, still weak. Tolerating po intake, no concerns. SNF recommended by therapies. Exam Narrative: Exam Narrative: GEN: Alert and oriented, sitting in bedside chair, appears tired HEENT: EOMIs bilaterally, no scleral icterus CV: Rate 90s-100s, irregular. Soft systolic murmur R: No wheezing, adequate air movement Ext: wwp, no concerning edema Skin: Coccyx wound covered, no extension of erythema Neuro: Nonfocal Psych: Appropriate Const: Vital Signs, click to edit/add: Vital Signs - 24 hr 03/30/24 11:46 03/30/24 15:00 03/30/24 15:00 Temperature 97.6 F Pulse Rate 67 Pulse Rate [Pulse Oximeter] 68 78 Respiratory Rate 16 18 Blood Pressure [Le ft Arm] 106/52 L Blood Pressure [Ri ght Arm] Pulse Oximetry 98 Oxygen Delivery Me thod Room Air 03/30/24 15:00 03/30/24 19:00 03/30/24 23:00 Temperature 98 F 97.6 F Pulse Rate Pulse Rate [Pulse Oximeter] 78 103 H 69 Respiratory Rate 18 16 Blood Pressure [Le ft Arm] 125/58 L Blood Pressure [Ri ght Arm] 137/67 Pulse Oximetry 96 97 Oxygen Delivery Me thod Room Air Room Air 03/30/24 23:00 03/30/24 23:00 03/31/24 03:00 Temperature 98.4 F Pulse Rate 69 Pulse Rate [Pulse Oximeter] 82 104 H Respiratory Rate 16 18 Blood Pressure [Le ft Arm] 100/55 L 138/70 Blood Pressure [Ri ght Arm] Pulse Oximetry 96 96 Oxygen Delivery Me thod Room Air Room Air Labs Labs: Laboratory Results - last 24 hr 03/30/24 03/30/24 03/31/24 07:58 09:00 06:03 WBC 10.94 RBC 3.04 L Hgb 9.1 L Hct 28.7 L MCV 94 MCH 30 MCHC 32 RDW Coeff of Celina 13.2 Plt Count 385 Neut % (Auto) 69.4 Lymph % (Auto) 19.6 L [place] % (Auto) 7.6 Eos % (Auto) 2.8 Baso % (Auto) 0.4 Neut # (Auto) 7.60 H Lymph # (Auto) 2.10 [place] # (Auto) 0.80 Eos # (Auto) 0.31 Baso # (Auto) 0.04 Abs Immat Gran (auto) 0.02 Imm/Tot Granulo (auto) 0.2 Sodium 130 L Potassium 3.7 Chloride 101 Carbon Dioxide 24 Anion Gap 5 L BUN 16 Creatinine 0.5 Estimated Creat Clear 29.22 Estimated GFR 91 Glucose 114 Calcium 8.6 C-Reactive Protein 12.9 H Lab Acknowledgement Test Added
[2024-03-31] MEDS: FERROUS SULFATE 325 MG TABLET PO (09:35)
[2024-03-31] MEDS: METOPROLOL TARTRATE 25 MG TABLET 50 MG PO ×2 (09:35→20:31)
[2024-03-31] MEDS: APIXABAN 5 MG TABLET 2.5 MG PO ×2 (09:36→20:32)
[2024-03-31] MEDS: MAGNESIUM OXIDE 400 MG TABLET 200 MG PO ×2 (09:36→20:31)
[2024-03-31] MEDS: SODIUM CHLORIDE 1 GM TABLET PO ×2 (09:36→12:43)
[2024-03-31] MEDS: ACETAMINOPHEN 325 MG TABLET 975 MG PO (09:37)
--- NOTE | 2024-03-31 19:07 | PC.NURSE ---
End of Shift: The patient is initially alert and orientated, This afternoon she was noted to be more confused and impulsive. The patient was found to have ripped her IV out and was ambulating in her room without assistance. The patients VSS on RA. No reports of pain this shift, although does seem to get uncomfortable at times sitting in the chair. Ax1 w/ RW and GB to BR. Continent of bladder this shift. Alarms are in place. This evening she has set off the alarms multiple times. Educated about the call button but the patient is not receptive to this. Call light within reach. Sacral Wound care was completed this shift as well. Geovanna KOROMA BSN
[2024-03-31] MEDS: cephALEXin 500 MG CAPSULE PO (20:30)
[2024-04-01 02:54] VITALS: BP 144/63; PULSE 85; RESP 18; TEMP 36.9; O2SAT 95
[2024-04-01 06:25] LABS: Basophils Absolute Auto 0.03 K/uL (0.00-0.30); Basophils Percent Auto 0.3 % (0.0-3.0); Eosinophils Absolute Auto 0.23 K/uL (0.00-0.50); Eosinophils Percent Auto 2.5 % (0.0-7.0); Hematocrit 28.2 % (33.0-51.0); Hemoglobin* 9.2 gm/dL (12.0-16.0); Immature Granulocytes Abs Auto 0.01 K/uL (0.00-0.30); Immature Granulocytes Pct Auto 0.1 %; Lymphocytes Absolute Auto 1.87 K/uL (0.90-2.90); Lymphocytes Percent Auto 20.7 % (20-44); Mean Corpuscular HGB Conc 33 gm/dL (32-36); Mean Corpuscular Hemoglobin 30 pg (26-34); Mean Corpuscular Volume 93 fL (80-100); Monocytes Percent Auto 7.7 % (0.0-11.0); Neutrophils Percent Auto 68.7 % (42.0-72.0); Platelet Count* 363 K/uL (140-440); RDW Coefficient of Variation % 13.1 % (11.5-15.5); Red Blood Count 3.03 m/uL (4.00-5.20); White Blood Count* 9.04 K/uL (4.50-11.00)
[2024-04-01 06:29] LABS: Slide Review Reflex No
--- NOTE | 2024-04-01 06:29 | PC.NURSE ---
Shift note: Pt is doing well ambulating with A1, walker and GB. Improvement in activity noted. Pt is more alert and oriented than ailyn
--- NOTE | 2024-04-01 06:35 | PC.NURSE ---
Shift note: Pt is doing well ambulating with A1, walker and GB. Improvement in activity noted. Pt is more alert and oriented than previous night. No pain reported, Vitally stable. Pt had adequate sleep.
[2024-04-01 06:39] LABS: Chloride* 97 mmol/L (96-114); Potassium* 3.9 mmol/L (3.6-5.1); Sodium* 129 mmol/L (135-149)
[2024-04-01 06:41] LABS: Creatinine* 0.4 mg/dL (0.5-1.5); Est. Creatinine Clearance* 29.22; Estimated Glomerular Filt Rate 96 ml/min
[2024-04-01 06:42] LABS: Anion Gap 7 mEq/L (7-15); Blood Urea Nitrogen* 11 mg/dL (7-30); Carbon Dioxide* 25 mmol/L (20-32); Glucose* 113 mg/dL (60-115)
[2024-04-01 06:43] LABS: Calcium* 8.8 mg/dL (8.4-10.6)
[2024-04-01 06:45] LABS: C Reactive Protein* 7.6 mg/dL (0.5-1.0)
[2024-04-01 07:00] VITALS: BP 138/60; PULSE 99; RESP 16; TEMP 36.8; O2SAT 96
[2024-04-01] MEDS: FERROUS SULFATE 325 MG TABLET PO (07:41)
[2024-04-01] MEDS: cephALEXin 500 MG CAPSULE PO ×3 (08:58→20:30)
[2024-04-01] MEDS: METOPROLOL TARTRATE 25 MG TABLET 50 MG PO ×2 (08:58→20:30)
[2024-04-01] MEDS: APIXABAN 5 MG TABLET 2.5 MG PO ×2 (08:59→20:31)
[2024-04-01] MEDS: MAGNESIUM OXIDE 400 MG TABLET 200 MG PO ×2 (08:59→20:30)
[2024-04-01] MEDS: SODIUM CHLORIDE 1 GM TABLET PO ×3 (09:03→18:18)
[2024-04-01 09:28] VITALS: BMI 19.1
[2024-04-01 11:00] VITALS: BP 126/60; PULSE 76; RESP 18; TEMP 36.6; O2SAT 97
--- NOTE | 2024-04-01 12:08 | PC.SOCIAL ---
Addendum entered by BUCKY Armstrong 04/01/24 15:18: Met with pt and spoke with Robinson by phone. Pt is refusing placement in a detention facility for rehab, but will accept home health PT/OT/RN. Robinson requested this be arranged with [facility]. Called and faxed information and MD face to face to [facility] for follow up. putty and patch worker to follow up as needed. Robinson plans to pick pt up at 10:00am tomorrow for discharge home. Pt has a paid caregiver who assist with dressing/meals and housekeeping for an hour in the morning and an hour at night. Robinson states they will increase this if needed at home (although this person is likely not available this week.) Robinson states she does not want to push pt to go to a care home and will make their home a safe place for pt to be discharged to. putty and patch worker to follow up as needed. Addendum entered by SAIGE Kincaid 04/01/24 13:45: Discharge planning: putty and patch worker secure emailed a referral to Wen at [facility] this morning. They are still reviewing the referral. Social work to follow-up as needed. Original Note: Discharge planning: Met with pt regarding d/c plan. Pt states she hopes to go home rather than a facility and requested child protective services social worker discuss discharge plans with her friend Robinson. Spoke with pt and Robinson at the hospital regarding d/c plans. Robinson requested child protective services social worker look for placement at [facility] as she does not want to go outside of [place]. putty and patch worker to follow up as needed.
--- NOTE | 2024-04-01 12:55 | PM.IMPN1 ---
Progress Note: A&P Assessment and plan (1) Fall: Problem details: - mechanical/deconditioning vs related to acute infectious process vs arrythmia vs iatrogenic (on BID Valium) - telemetry reassuring, d/c'd on 03/31 - therapies following, SNF recommended but patient electing to d/c home with HH Status: Acute (2) Sepsis: Problem details: - as evidenced by hypotension, tachycardia, leukocytosis, elevated CRP, sacral wound with surrounding erythema - stable on 03/30 and tolerating po intake well, IVFs discontinued - Blood, Wound, and Urine cultures NGTD - Vancomycin initiated 03/29, narrowed to Cefazolin on 03/30 given clinical improvement, transitioned to oral Cephalexin on 03/31 Status: Acute (3) Sacral decubitus ulcer, stage III: Problem details: - with surrounding cellulitis, wound culture reveals small amount of coag - staph + strep - Vancomycin (03/29/24) --> Cefazolin 03/30 --> Cephalexin 03/31 - wound care to see 04/01/24 Status: Acute (4) Generalized anxiety disorder: Problem details: - as an outpatient, takes 2.5mg Diazepam BID - will try to limit benzos during stay given age, comorbidities, and fall risk (ordered 0.5mg Lorazepam Q6H prn) - as of 04/01/24, has required NO Lorazepam during stay; will recommend d/c of Diazepam upon discharge Status: Acute (5) Leukocytosis: Problem details: - noted during recent stay at [facility] (+ E Coli UTI at that time) with PMN predominance - related to acute infection vs chronic condition (also anemic); concern for infectious process given elevated WBC + hypotension + tachycardia (UTI vs sacral ulcer) - peripheral smear pending as of 04/01/24 - normalized 03/31/24 Status: Acute (6) Frail elderly: Status: Acute (7) Hypertension: Problem details: - home medications of Olmesartan, Metoprolol, Amlodipine - hypotensive on arrival to ED 03/29/24, holding Olmesartan and Amlodipine - Metoprolol increased from 25mg BID--> 50mg BID on 03/31/24 for elevated HR Status: Acute (8) Atrial fibrillation with rapid ventricular response: Problem details: - rate controlled on Metoprolol, anticoagulated on Eliquis - 03/29: HR up to 130s, given Digoxin - 03/30: improved with HR 60s and improved BP; stopped Digoxin and continue monotherapy with Metoprolol. Continue Telemetry - 03/31: HR 90-110s, BP improved. Continue to hold Amlodipine and Olmesartan, increased Metoprolol from 25mg BID --> 50mg BID - last TTE 01/2024: Final Impressions: 1. Technically limited exam. 2. Normal LV size, mildly increased wall thickness, hyperdynamic global systolic function with an estimated EF of 70 - 75%. 3. Right ventricular cavity size is normal, global systolic RV function is normal. 4. Normal left atrium size. 5. The aortic valve is sclerotic, no stenosis and trivial regurgitation. 6. The mitral valve is sclerotic, trace mitral regurgitation. 7. Tricuspid valve is normal. 8. Mildly increased estimated pulmonary pressures by tricuspid regurgitation velocity and right atrial pressure (35 mmHg plus RAP). 9. No pericardial effusion. Status: Acute (9) Normocytic anemia: Problem details: - no evidence of acute bleeding, continue to follow Hgb (per chart review, baseline -, current Hgb 9.2) Status: Acute (10) Hyponatremia: Problem details: - history of Na as low as 124 in January 2024, has been 129-134 during stay, asymptomatic Status: Acute Plan - per above - will see wound care 04/01/24 - home with on 04/02/24 Subjective Date Seen: 04/01/24 Interval history: Linda Herrera) was admitted to the hospital on 03/29 after a fall at home with associated weakness. Upon admission, noted to have hypotension, a fib with RVR (history of rate controlled a fib, anticoagulated on Eliquis), leukocytosis, and an elevated CRP, in addition to a new sacral wound with surrounding erythema. IVFs given and Vancomycin empirically initiated for concern of sepsis. Improved on hospital day 1; Vancomycin narrowed to Cefazolin 03/30, then transitioned to oral Cephalexin on 03/31 after self-discontinuing her IV. She continues to feel a little better each day. Tolerating po intake. Working with therapies who recommend SNF placement; Linda refusing at this time. She is willing to go home with [facility], lives independently with friend Robinson. Wound care will be seeing Niya today for her sacral ulcer. Exam Narrative: Exam Narrative: GEN: Alert and oriented, stable in bed. Appears chronically frail, nontoxic HEENT: EOMIs bilaterally, no scleral icterus CV: Rate controlled atrial fibrillation R: Air movement adequate Ext: thin, wwp, no concerning edema Skin: Sacral wound covered with bandage, mild erythema noted over R inferior edge of bandag Neuro: Nonfocal Psych: Appropriate Const: Vital Signs, click to edit/add: Vital Signs - 24 hr 03/31/24 16:00 03/31/24 19:00 03/31/24 22:28 Temperature 97.8 F 97.8 F Pulse Rate [Pulse Oximeter] 84 79 81 Respiratory Rate 18 18 18 Blood Pressure [Le ft Arm] Blood Pressure [Ri ght Arm] 144/73 H 156/78 H Pulse Oximetry 97 97 Oxygen Delivery Me thod Room Air Room Air 03/31/24 22:28 04/01/24 02:54 04/01/24 07:00 Temperature 97.9 F 98.4 F 98.2 F Pulse Rate [Pulse Oximeter] 81 85 99 Respiratory Rate 18 18 16 Blood Pressure [Le ft Arm] 144/63 H 138/60 Blood Pressure [Ri ght Arm] 153/85 H Pulse Oximetry 95 95 96 Oxygen Delivery Me thod Room Air Room Air Room Air 04/01/24 07:00 04/01/24 11:00 Temperature 97.8 F Pulse Rate [Pulse Oximeter] 99 76 Respiratory Rate 18 Blood Pressure [Le ft Arm] 126/60 Blood Pressure [Ri ght Arm] Pulse Oximetry 97 Oxygen Delivery Me thod Room Air Labs Labs: Laboratory Results - last 24 hr 04/01/24 06:09 WBC 9.04 RBC 3.03 L Hgb 9.2 L Hct 28.2 L MCV 93 MCH 30 MCHC 33 RDW Coeff of [place] 13.1 Plt Count 363 Neut % (Auto) 68.7 Lymph % (Auto) 20.7 [place] % (Auto) 7.7 Eos % (Auto) 2.5 Baso % (Auto) 0.3 Neut # (Auto) 6.20 Lymph # (Auto) 1.87 [place] # (Auto) 0.70 Eos # (Auto) 0.23 Baso # (Auto) 0.03 Abs Immat Gran (auto) 0.01 Imm/Tot Granulo (auto) 0.1 Sodium 129 L Potassium 3.9 Chloride 97 Carbon Dioxide 25 Anion Gap 7 BUN 11 Creatinine 0.4 L Estimated Creat Clear 29.22 Estimated GFR 96 Glucose 113 Calcium 8.8 C-Reactive Protein 7.6 H
--- NOTE | 2024-04-01 13:04 | PM.WSCN ---
Date of Consult Consult date: 04/01/24 Requesting Physician: Hospitalist Primary Care Provider: Danuta Ro PA-C Consult Narrative Reason for consult: inpatient with pressure ulcer on admission Narrative: Linda Cruz is a 88 year old female, gait abnormalities her choir in the assistance of a walker and staff assist of 1. She was admitted to inpatient services after she was brought into the ER by EMS services, roommate had reported patient had multiple falls and had increased weakness. On admission it was noted that she had a sacral pressure ulcer. Patient is thin and frail. live independently with another elderly female. 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 She lives on the top floor having to walk up a whole flight of stairs to get to where she lives. She has a female housemate who lives on the lower level. She is originally from [place] and moved to the [place] about 40 years ago. She is now planning to move back to [place] with her family. Her healthcare power of commercial real estate attorney is Robinson Rogers, her roommate and friend. Code status is full. She does not smoke and she does not drink. What is your current living situation?: I presently have a place to live Problems where you live: no known problems Problems where you live details: none known In the past 12 months, utilities in danger of being shut off: no In past 12 months, lack of transportation kept you from medical appts, meetings, work, or getting things needed for daily living: no In the past 12 mos, have been you worried that your food would run out before you had money to buy more?: never true In the past 12 mos, the food you bought just didn't last and you didn't have money to buy more?: never true Highest level of school completed/degree received: high school graduate Smoking Status: Former smoker What tobacco products do you use: cigarettes Smoking quit date/years: >15 years ago Do you use any of these nicotine containing products: None Second hand tobacco smoke exposure: No How often do you have a drink containing alcohol: never AUDIT-C Alcohol total score: 0 Non-prescribed substance use: denies use Caffeine: Yes How often does anyone, including family, friends and others, physically hurt you: never How often does anyone, including family, friends and others, insult or talk down to you: never How often does anyone, including family, friends and others, threaten you with harm: never How often does anyone, including family, friends and others, scream or curse at you: never service: No Meds Home Medications and Allergies Home Medications ?Medication ?Instructions ?Recorded ?Confirmed ?Type acetaminophen 325 mg tablet 650 mg PO TID 03/29/24 03/29/24 History cholecalciferol (vitamin D3) 50 50 mcg PO DAILY 03/29/24 03/29/24 History mcg (2,000 unit) capsule ferrous sulfate 325 mg (65 mg 325 mg PO DAILY 03/29/24 03/29/24 History iron) tablet,delayed release magnesium gluconate 27 mg 27 mg PO BID 03/29/24 03/29/24 History magnesium (500 mg) tablet sennosides 8.6 mg tablet (senna) 8.6 mg PO HS 03/29/24 03/29/24 History Allergies Allergy/AdvReac Type Severity Reaction Status Date / Time No Known Drug Allergies Allergy Verified 02/27/24 10:51 Exam Narrative: Exam Narrative: General: NAD, alert. Sitting comfortably in recliner. Pulmonary: unlabored, speaking full sentences, symmetrical rise. sacral stage 3 pressure ulcer: wound measures 5x5x0.1cm. 75% slough & biofilm. 25% granulation. mechanical debridement performed, including removal of slough and biofilm. Periwound WNL. Drainage serosang small. Psych: makes good eye contact. A&Ox2 Const: Vital Signs, click to edit/add: Vital Signs - 24 hr 03/31/24 16:00 03/31/24 19:00 03/31/24 22:28 Temperature 97.8 F 97.8 F Pulse Rate [Pulse Oximeter] 84 79 81 Respiratory Rate 18 18 18 Blood Pressure [Le ft Arm] Blood Pressure [Ri ght Arm] 144/73 H 156/78 H Pulse Oximetry 97 97 Oxygen Delivery Me thod Room Air Room Air 03/31/24 22:28 04/01/24 02:54 04/01/24 07:00 Temperature 97.9 F 98.4 F 98.2 F Pulse Rate [Pulse Oximeter] 81 85 99 Respiratory Rate 18 18 16 Blood Pressure [Le ft Arm] 144/63 H 138/60 Blood Pressure [Ri ght Arm] 153/85 H Pulse Oximetry 95 95 96 Oxygen Delivery Me thod Room Air Room Air Room Air 04/01/24 07:00 04/01/24 11:00 Temperature 97.8 F Pulse Rate [Pulse Oximeter] 99 76 Respiratory Rate 18 Blood Pressure [Le ft Arm] 126/60 Blood Pressure [Ri ght Arm] Pulse Oximetry 97 Oxygen Delivery Me thod Room Air Documenting provider has reviewed patient's vital signs: yes Labs Labs: Short CBC 04/01/24 Range/Units 06:09 WBC 9.04 (4.50-11.00) K/uL Hgb 9.2 L (12.0-16.0) gm/dL Hct 28.2 L (33.0-51.0) % Plt Count 363 (140-440) K/uL BMP 04/01/24 06:09 Sodium 129 L Potassium 3.9 Chloride 97 Carbon Dioxide 25 BUN 11 Creatinine 0.4 L Glucose 113 Calcium 8.8 Assessment and Plan Assessment and plan (1) Frail elderly: Status: Acute (2) Sacral decubitus ulcer, stage III: Problem comment: - with surrounding cellulitis, wound culture reveals small amount of coag - staph + strep - Vancomycin (03/29/24) --> Cefazolin 03/30 --> Cephalexin 03/31 - wound care visit 04/01/24, recommendations in d/c instructions Status: Acute Plan continue utilizing offloading cushion when in recliner turn and reposition in bed following unit policy consider supplementing with protein to cells 8 wound healing. Wound overall stable, free of clinical signs or symptoms of acute bacterial infection. coccyx stage 3 pressure ulcer wound care dressing orders: cleanse with unit approved wound cleanser apply medihoney to base of wound cover with sacral mepilex, change every other day and PRN If patient returns home could look to refer to the [facility] upon discharge. Likely patient would benefit from home health nursing to help with her wound care. Total Time Spent Total Time Spent: 45 Procedures Additional Procedures Additional Procedure Details: [id number] debridement
[2024-04-01 15:00] VITALS: BP 128/66; PULSE 91; RESP 16; TEMP 36.9; O2SAT 95
--- NOTE | 2024-04-01 18:35 | PC.NURSE ---
[id number] End of Shift: Pt was AxO throughout the shift with mild confusion. Pt noted to be more confused and impulsive during the afternoon wanting to go back to the chair and back to bed while attempting to do by self. Sound Art Instructor reoriented Pt and gave education on using call light. VSS on RA. No reports of pain this shift. Ax1 w/ RW and GB. Continent of bladder and bowels. Pt bladder scanned due to prolonged time between urinating. Sound Art Instructor encouraged fluid intake and notified MD. Pt then urinated 200cc. Pt tolerating diet and nutritional supplement well. Alarms are in place. Sacral Wound care was completed this shift with wound care steamtable attendant railroad. Pt appears resting comfortably with call light in reach.
[2024-04-01 20:29] VITALS: BP 133/64; PULSE 91; RESP 20; TEMP 36.8; O2SAT 96
[2024-04-01 23:11] VITALS: BP 139/83; PULSE 76; RESP 16; TEMP 36.6; O2SAT 92
[2024-04-02 02:00] VITALS: BP 154/73; PULSE 78; RESP 18; TEMP 36.8; O2SAT 96
--- NOTE | 2024-04-02 06:33 | PC.NURSE ---
Shift note ([id number]): Patient pleasant and alert. Denied pain. Ambulated with walker, gait belt and assist of one.
[2024-04-02 08:13] VITALS: BP 127/69; PULSE 85; RESP 16; TEMP 36.6; O2SAT 96
[2024-04-02] MEDS: APIXABAN 5 MG TABLET 2.5 MG PO ×2 (08:18→20:44)
[2024-04-02] MEDS: METOPROLOL TARTRATE 25 MG TABLET 50 MG PO ×2 (08:18→20:44)
[2024-04-02] MEDS: MAGNESIUM OXIDE 400 MG TABLET 200 MG PO ×2 (08:18→20:44)
[2024-04-02] MEDS: cephALEXin 500 MG CAPSULE PO ×3 (08:18→20:44)
[2024-04-02] MEDS: FERROUS SULFATE 325 MG TABLET PO (08:19)
[2024-04-02] MEDS: SODIUM CHLORIDE 1 GM TABLET PO ×2 (08:19→17:58)
--- NOTE | 2024-04-02 09:07 | P.DS_ITS ---
DS: Providers Provider Date Seen: 04/02/24 Date of admission: 03/29/24 13:28 Primary care physician: Danuta Ro PA-C Admitting Clinician: Iraida Alcocer MD Consults: PT, OT, Wound Care Attending Physician on discharge: Iraida Alcocer MD Date of Discharge: 04/02/24 DS: Diagnosis Discharge Diagnosis (1) Fall: Status: Acute Problem details: - mechanical/deconditioning vs related to acute infectious process vs arrythmia vs iatrogenic (on BID Valium) - telemetry reassuring, d/c'd on 03/31 - therapies following, SNF recommended but patient electing to d/c home with HH (2) Sepsis: Status: Acute Problem details: - as evidenced by hypotension, tachycardia, leukocytosis, elevated CRP, sacral wound with surrounding erythema - stable on 03/30 and tolerating po intake well, IVFs discontinued - Blood, Wound, and Urine cultures NGTD - Vancomycin initiated 03/29, narrowed to Cefazolin on 03/30 given clinical improvement, transitioned to oral Cephalexin on 03/31 - completed 5 day course of abx during stay (3) Sacral decubitus ulcer, stage III: Status: Acute Problem details: - with surrounding cellulitis, wound culture reveals small amount of coag - staph + strep - Vancomycin (03/29/24) --> Cefazolin 03/30 --> Cephalexin 03/31 - wound care visit 04/01/24, recommendations in d/c instructions (4) Generalized anxiety disorder: Status: Acute Problem details: - as an outpatient, takes 2.5mg Diazepam BID - will try to limit benzos during stay given age, comorbidities, and fall risk (ordered 0.5mg Lorazepam Q6H prn) - as of 04/01/24, has required NO Lorazepam during stay; will recommend d/c of Diazepam upon discharge (5) Leukocytosis: Status: Acute Problem details: - noted during recent stay at [facility] (+ E Coli UTI at that time) with PMN predominance - related to acute infection vs chronic condition (also anemic); concern for infectious process given elevated WBC + hypotension + tachycardia (UTI vs sacral ulcer) - peripheral smear pending upon discharge 04/02 - normalized 03/31/24 (6) Frail elderly: Status: Acute (7) Hypertension: Status: Acute Problem details: - home medications of Olmesartan, Metoprolol, Amlodipine - hypotensive on arrival to ED 03/29/24, holding Olmesartan and Amlodipine - Metoprolol increased from 25mg BID--> 50mg BID on 03/31/24 for elevated HR (8) Atrial fibrillation with rapid ventricular response: Status: Acute Problem details: - rate controlled on Metoprolol, anticoagulated on Eliquis - 03/29: HR up to 130s, given Digoxin - 03/30: improved with HR 60s and improved BP; stopped Digoxin and continue monotherapy with Metoprolol. Continue Telemetry - 03/31: HR 90-110s, BP improved. Continue to hold Amlodipine and Olmesartan, increased Metoprolol from 25mg BID --> 50mg BID and will d/c on this - last TTE 01/2024: Final Impressions: 1. Technically limited exam. 2. Normal LV size, mildly increased wall thickness, hyperdynamic global systolic function with an estimated EF of 70 - 75%. 3. Right ventricular cavity size is normal, global systolic RV function is normal. 4. Normal left atrium size. 5. The aortic valve is sclerotic, no stenosis and trivial regurgitation. 6. The mitral valve is sclerotic, trace mitral regurgitation. 7. Tricuspid valve is normal. 8. Mildly increased estimated pulmonary pressures by tricuspid regurgitation velocity and right atrial pressure (35 mmHg plus RAP). 9. No pericardial effusion. (9) Normocytic anemia: Status: Acute Problem details: - no evidence of acute bleeding, continue to follow Hgb (per chart review, baseline 9-11, current Hgb 9.2) (10) Hyponatremia: Status: Acute Problem details: - history of Na as low as 124 in January 2024, has been 129-134 during stay, asymptomatic DS: Summary Hospital Course Hospital Course: Linda Herrera) was admitted to the hospital on 03/29 after a fall at home, associated with weakness in the ER. Upon admission, noted to have hypotension, a fib with RVR (history of rate controlled a fib, anticoagulated on Eliquis), leukocytosis, and an elevated CRP, in addition to a new sacral wound with surrounding erythema. IVFs given and Vancomycin empirically initiated for concern of sepsis. Improved on hospital day 1; Vancomycin narrowed to Cefazolin 03/30, then transitioned to oral Cephalexin on 03/31 after self-discontinuing her IV. Completed 5 day course of antibiotics during stay. Seen by Wound Care, recommendations in d/c instructions. Worked with therapies for her weakness, they recommended SNF placement; after discussing risks/benefits, she declined SNF and plans to discharge home with Home Health and roommate/friend Robinson. Status at Discharge Functional status at discharge: uses cane/walker Overall status at discharge: patient is progressing back to baseline Time Spent with Patient Time attestation: Total time spent providing and/or coordinating discharge services: Time spent: Greater than 30 minutes Specific discharge activities: Medication changes/reconciliation, patient education Exam 2 Narrative: Exam Narrative: GEN: Alert and oriented, sitting in bedside chair and eating breakfast HEENT: EOMIs bilaterally, no scleral icterus CV: RRR R: LCTA bilaterally without concerning wheezing Ext: wwp, no concerning edema Skin: Sacral wound covered with Mepilex Neuro: Nonfocal Psych: Appropriate Const: Vital Signs, click to edit/add: Vital Signs - 24 hr 04/01/24 11:00 04/01/24 15:00 04/01/24 20:29 Temperature 97.8 F 98.5 F 98.2 F Pulse Rate [Pulse Oximeter] 76 91 91 Respiratory Rate 18 16 20 Blood Pressure [Le ft Arm] 126/60 133/64 Blood Pressure [Ri ght Arm] 128/66 Pulse Oximetry 97 95 96 Oxygen Delivery Me thod Room Air Room Air Room Air 04/01/24 23:11 04/02/24 02:00 04/02/24 08:13 Temperature 97.8 F 98.3 F 97.8 F Pulse Rate [Pulse Oximeter] 76 78 85 Respiratory Rate 16 18 16 Blood Pressure [Le ft Arm] 127/69 Blood Pressure [Ri ght Arm] 139/83 154/73 H Pulse Oximetry 92 96 96 Oxygen Delivery Me thod Room Air Room Air Room Air DS: Data Data Completed and Pending Completed studies during hospitalization: Procedures Replacement of Right Hip Joint, Femoral Surface with Ceramic Synthetic Substitute, Cemented, Open Approach (01/14/24) Labs on day of discharge: Preliminary micro results at discharge 03/29/24 15:20 Blood Culture - Preliminary Blood NO GROWTH AFTER 72 HOURS Discharge Plan Discharge Disposition: Home, Self-Care Date of Admission: 03/29/24 13:28 Attending Provider on Discharge: Iraida Alcocer Consulting Providers: Iraida Alcocer Primary Care Provider: Danuta Ro Condition: Stable Anticipated Discharge Date/Time: 04/02/24 07:20 Discharge Medications: New metoprolol tartrate 50 mg tablet 50 mg PO BID Qty: 60 2RF Continued acetaminophen 325 mg tablet 650 mg PO TID Rx Instructions: AND NEEDED cholecalciferol (vitamin D3) 50 mcg (2,000 unit) capsule 50 mcg PO DAILY ferrous sulfate 325 mg (65 mg iron) tablet,delayed release (DR/EC) 325 mg PO DAILY magnesium gluconate 27 mg magnesium (500 mg) tablet 27 mg PO BID sennosides [senna] 8.6 mg tablet 8.6 mg PO HS sodium chloride 1,000 mg Tablet,Soluble 1,000 mg PO TIDWM Qty: 60 0RF Eliquis 5 mg Tablet 2.5 mg PO BID Qty: 90 0RF Discontinued oxycodone 5 mg tablet 2.5 mg PO Q4H PRN olmesartan 20 mg tablet 20 mg PO DAILY amlodipine 10 mg tablet 10 mg PO DAILY diazepam 5 mg Tablet 2.5 mg PO BID PRNQty: 12 0RF metoprolol tartrate 25 mg Tablet 25 mg PO BID Qty: 60 0RF Discharge Orders: Discharge Order (Routine); Ordered 04/02/24 Ordered By: Iraida Alcocer Additional Instructions: Medication changes: STOP: Amlodipine, Diazepam, and Olmesartan CHANGE: Metoprolol (you're increasing this from 25mg twice per day to 50mg twice per day) For the wound on your bottom: it will need to be cleansed and evaluated every other day. Hopefully home health can come do this at least once/week. Coccyx stage 3 pressure ulcer wound care dressing orders: * cleanse with unit approved wound cleanser * apply medihoney to base of wound * cover with sacral mepilex, change every other day and PRN Activity Level: No strenuous activity Discharge Diet: Regular Diet Detail: high protein, try to have ensure at least twice/day Follow Up Appointments: Danuta Ro PA-C [Primary Care Provider] - 04/05/24 2:00 pm ([facility] for follow-up.) Forms: [facility] Info Instructions
--- NOTE | 2024-04-02 14:18 | PM.EN ---
Chart Event Note Date Seen: 04/02/24 Chart Event Note: Patient's roommate had a medical event and is in the ER today; unable to be home for discharge today. Discharge discontinued at this time; considering SNF. Appreciate input from DENISE.
[2024-04-02 15:00] VITALS: BP 124/59; PULSE 83; RESP 16; TEMP 36.6; O2SAT 96
--- NOTE | 2024-04-02 16:55 | PC.SOCIAL ---
Discharge planning: Pt was planning to return home with room mate Robinson today. However, Robinson fell at home prior to picking pt up and is currently in the Emergency Room. Received call from Elizabeth, who identified herself as one of the hired caregivers in the home. Elizabeth stated she did not think it was safe for pt to be discharged home with Robinson being in the hospital. Did not provide any patient information to Elizabeth. Called assisted facilities in the area including [facility], [facility], [facility] and [facility]. The only facilities with short term rehab beds available were [facility] and [facility]. Met with pt who states she really wanted to go straight home but she will go for a short term stay of Robinson thinks that is best. Pt requested social media marketing specialist discuss discharge plan and facility options with Robinson. Met with Robinson in the Emergency Room who stated that she would like pt placed at [facility] if accepted as this is the closest facility to [place]. cafe worker secure emailed referral to [facility] and called to leave message confirming receipt of email. Awaiting call back from [facility] with decision on admit. cafe worker to follow up as needed.
--- NOTE | 2024-04-02 18:55 | PC.NURSE ---
Assumed care of patient at 1400. Pt has been A&O to self, place and situation. Disoriented to time & date. Pt is Ax1 with 2ww and gait belt for transfers. She takes meds whole with water. Denies any pain, nausea or dizziness. Sacral dressing C/D/I, chronic ulcer present. Pt has been continent of urine this shift and no BM. No IV access d/t expected discharge today but her POA/roommate ended up falling at home and going to the ER. So, discharge has been delayed & SW is working on rehab placement since their home situation doesn?t seem to be the safest. ?
[2024-04-02 19:00] VITALS: BP 121/59; PULSE 86; RESP 16; TEMP 36.8; O2SAT 96
[2024-04-02 23:00] VITALS: PULSE 86; RESP 16
[2024-04-03 03:00] VITALS: RESP 16
--- NOTE | 2024-04-03 06:11 | PC.NURSE ---
End of shift report [id number]: Pleasant and cooperative with cares. Denies any pain, shortness of breath or chest pain this shift. Alert and oriented to self and date, intermittent confusion as to date and place, easily reoriented. Patient impulsive, bed alarm engaged ans patient does not use call light for assistance. SBA with transfers and ambulates with walker. Continent of bladder and bowel this shift. IV removed on previous shift, OK per Radha WILSON for no IV access. OK for restful vitals as well.
[2024-04-03 07:00] VITALS: BP 154/81; PULSE 97; RESP 14; TEMP 36.8; O2SAT 96
[2024-04-03] MEDS: cephALEXin 500 MG CAPSULE PO ×2 (08:33→14:26)
[2024-04-03] MEDS: MAGNESIUM OXIDE 400 MG TABLET 200 MG PO ×2 (08:33→20:30)
[2024-04-03] MEDS: FERROUS SULFATE 325 MG TABLET PO (08:33)
[2024-04-03] MEDS: APIXABAN 5 MG TABLET 2.5 MG PO ×2 (08:34→20:30)
[2024-04-03] MEDS: METOPROLOL TARTRATE 25 MG TABLET 50 MG PO ×2 (08:34→20:30)
[2024-04-03] MEDS: SODIUM CHLORIDE 1 GM TABLET PO ×3 (08:34→17:29)
--- NOTE | 2024-04-03 09:29 | PC.SOCIAL ---
Addendum entered by Maryuri Simpson [facility] 04/03/24 16:11: Discharge planning: Pt's friend, Nazia, will now be giving the pt a ride to [facility] tomorrow. Nazia plans to pick the pt up at 1pm. Social work to follow-up as needed. Addendum entered by Maryuri Simpson [facility] 04/03/24 15:52: Discharge planning: [facility] can accept the pt for admit tomorrow 04/04. Provider on duty and charge nurse on duty were notified. Pt's friend, Elizabeth, will be transporting her. Pt may arrive between 11am-7pm and discharge orders need to be received at least two hours prior to pt's admission and by 3pm tomorrow. Social work to follow-up as needed. Addendum entered by Maryuri Simpson, [facility] 04/03/24 11:03: Discharge planning: care worker secure emailed a referral to Felicitas at [facility] on behalf of the pt and this worker's utilities and maintenance supervisor received a call from pt's friend/AGUSTINA, Robinson, stating that she no longer wanted the pt to go to [facility] because of their ratings with [facility] [place] [facility]. Robinson stated that she would like the pt to go to [facility] and they do have openings right now. Social work to follow-up as needed. Original Note: Discharge planning: care worker reached out to Iwona at [facility] this morning on decision for admit for the pt after a referral was sent to their facility yesterday. Iwona said that nursing was still reviewing the referral. Social work to follow-up as needed.
[2024-04-03 10:45] VITALS: BP 143/76; PULSE 69; RESP 16; TEMP 36.8; O2SAT 97
[2024-04-03 14:31] VITALS: BP 114/56; BP 131/58; PULSE 85; RESP 14; TEMP 36.8; O2SAT 96
--- NOTE | 2024-04-03 14:58 | P.IMPN_ITS ---
Progress Note: A&P Assessment and plan (1) Fall: Problem details: - mechanical/deconditioning vs related to acute infectious process vs arrythmia vs iatrogenic (on BID Valium) - telemetry reassuring, d/c'd on 03/31 - therapies following, SNF recommended and awaiting placement Status: Acute (2) Sepsis: Problem details: - as evidenced by hypotension, tachycardia, leukocytosis, elevated CRP, sacral wound with surrounding erythema - stable on 03/30 and tolerating po intake well, IVFs discontinued - Blood, Wound, and Urine cultures NGTD - Vancomycin initiated 03/29, narrowed to Cefazolin on 03/30 given clinical improvement, transitioned to oral Cephalexin on 03/31 - completed 5 day course of abx during stay Status: Acute (3) Sacral decubitus ulcer, stage III: Problem details: - with surrounding cellulitis, wound culture reveals small amount of coag - staph + strep - Vancomycin (03/29/24) --> Cefazolin 03/30 --> Cephalexin 03/31 - wound care visit 04/01/24, recommendations in d/c instructions Status: Acute (4) Generalized anxiety disorder: Problem details: - as an outpatient, takes 2.5mg Diazepam BID - will try to limit benzos during stay given age, comorbidities, and fall risk (ordered 0.5mg Lorazepam Q6H prn) - as of 04/01/24, has required NO Lorazepam during stay; will recommend d/c of Diazepam upon discharge Status: Acute (5) Leukocytosis: Problem details: - noted during recent stay at [facility] (+ E Coli UTI at that time) with PMN predominance - related to acute infection vs chronic condition (also anemic); concern for infectious process given elevated WBC + hypotension + tachycardia (UTI vs sacral ulcer) - peripheral smear pending upon discharge 04/02 - normalized 03/31/24 Status: Acute (6) Frail elderly: Status: Acute (7) Hypertension: Problem details: - home medications of Olmesartan, Metoprolol, Amlodipine - hypotensive on arrival to ED 03/29/24, holding Olmesartan and Amlodipine - Metoprolol increased from 25mg BID--> 50mg BID on 03/31/24 for elevated HR Status: Acute (8) Atrial fibrillation with rapid ventricular response: Problem details: - rate controlled on Metoprolol, anticoagulated on Eliquis - 03/29: HR up to 130s, given Digoxin - 03/30: improved with HR 60s and improved BP; stopped Digoxin and continue monotherapy with Metoprolol. Continue Telemetry - 03/31: HR 90-110s, BP improved. Continue to hold Amlodipine and Olmesartan, increased Metoprolol from 25mg BID --> 50mg BID and will d/c on this - last TTE 01/2024: Final Impressions: 1. Technically limited exam. 2. Normal LV size, mildly increased wall thickness, hyperdynamic global systolic function with an estimated EF of 70 - 75%. 3. Right ventricular cavity size is normal, global systolic RV function is normal. 4. Normal left atrium size. 5. The aortic valve is sclerotic, no stenosis and trivial regurgitation. 6. The mitral valve is sclerotic, trace mitral regurgitation. 7. Tricuspid valve is normal. 8. Mildly increased estimated pulmonary pressures by tricuspid regurgitation velocity and right atrial pressure (35 mmHg plus RAP). 9. No pericardial effusion. Status: Acute (9) Normocytic anemia: Problem details: - no evidence of acute bleeding, continue to follow Hgb (per chart review, baseline 9-11, current Hgb 9.2) Status: Acute (10) Hyponatremia: Problem details: - history of Na as low as 124 in January 2024, has been 129-134 during stay, asymptomatic Status: Acute Plan - awaiting placement Subjective Date Seen: 04/03/24 Interval history: Linda Herrera) was admitted to the hospital on 03/29 after a fall at home with associated weakness. Upon admission, noted to have hypotension, a fib with RVR (history of rate controlled a fib, anticoagulated on Eliquis), leukocytosis, and an elevated CRP, in addition to a new sacral wound with surrounding erythema. IVFs given and Vancomycin empirically initiated for concern of sepsis. Improved on hospital day 1; Vancomycin narrowed to Cefazolin 03/30, then transitioned to oral Cephalexin on 03/31-04/03 after self-discontinuing her IV. Seen by therapies during stay; SNF recommended. Niya was initially planning to go home with her friend/roommate Robinson and [facility], then Robinson had a fall, so patient amenable to SNF placement. Exam Narrative: Exam Narrative: GEN: Alert and oriented, sitting in bedside chair and having breakfast HEENT: EOMIs bilaterally, no scleral icterus CV: Pulse palpates as rate controlled atrial fibrillation R: Breathing comfortably Neuro: Nonfocal Psych: Appropriate Const: Vital Signs, click to edit/add: Vital Signs - 24 hr 04/02/24 15:00 04/02/24 15:00 04/02/24 19:00 Temperature 97.8 F 98.2 F Pulse Rate [Pulse Oximeter] 83 83 86 Respiratory Rate 16 16 16 Blood Pressure [Le ft Arm] Blood Pressure [Ri ght Arm] 124/59 L 121/59 L Pulse Oximetry 96 96 Oxygen Delivery Me thod Room Air Room Air 04/02/24 23:00 04/02/24 23:00 04/03/24 03:00 Temperature Pulse Rate [Pulse Oximeter] 86 Respiratory Rate 16 16 16 Blood Pressure [Le ft Arm] Blood Pressure [Ri ght Arm] Pulse Oximetry Oxygen Delivery Me thod 04/03/24 07:00 04/03/24 07:00 04/03/24 10:45 Temperature 98.2 F 98.3 F Pulse Rate [Pulse Oximeter] 97 97 69 Respiratory Rate 14 16 Blood Pressure [Le ft Arm] 154/81 H 143/76 H Blood Pressure [Ri ght Arm] Pulse Oximetry 96 97 Oxygen Delivery Me thod Room Air Room Air 04/03/24 14:31 Temperature 98.2 F Pulse Rate [Pulse Oximeter] 85 Respiratory Rate 14 Blood Pressure [Le ft Arm] 114/56 L Blood Pressure [Ri ght Arm] 131/58 L Pulse Oximetry 96 Oxygen Delivery Me thod Room Air
--- NOTE | 2024-04-03 18:15 | PC.NURSE ---
[id number] End of Shift: Pt was AxO throughout the shift with mild confusion.?Patient impulsive, bed alarm engaged as patient does not use call light for assistance.?Inside Sales Manager reoriented Pt and gave education on using call light. VSS on RA. No reports of pain this shift. Ax1 w/ W and GB. Continent of bladder. Pt tolerating diet and nutritional supplement well. Sacral Wound care was completed this shift. Pt appears resting comfortably with call light in reach.
[2024-04-03 19:00] VITALS: BP 130/45; PULSE 103; RESP 16; TEMP 37; O2SAT 94
[2024-04-03 21:58] VITALS: PULSE 103; RESP 16
--- NOTE | 2024-04-04 05:09 | PC.NURSE ---
[id number] Pt slept well during the night, ambulating to br with walker and SBA, tolerating activity fair. denies pain.
[2024-04-04 07:00] VITALS: BP 166/71; PULSE 92; RESP 18; TEMP 37.2; O2SAT 95
--- NOTE | 2024-04-04 07:49 | PM.DS1 ---
DS: Providers Provider Date Seen: 04/04/24 Date of admission: 03/29/24 13:28 Primary care physician: Danuta Ro PA-C Admitting Clinician: Iraida Alcocer MD Consults: PT, OT, Wound Care Attending Physician on discharge: Iraida Alcocer MD Date of Discharge: 04/04/24 DS: Diagnosis Discharge Diagnosis (1) Sepsis: Status: Acute Problem details: - concern for this on admission given hypotension, tachycardia, leukocytosis, elevated CRP, new sacral wound with surrounding erythema - stable on 03/30 and tolerating po intake well, IVFs discontinued - Blood, Wound, and Urine cultures NGTD - Vancomycin initiated 03/29, narrowed to Cefazolin on 03/30 given clinical improvement, transitioned to oral Cephalexin on 03/31 - completed 5 day course of abx during stay (2) Sacral decubitus ulcer, stage III: Status: Acute Problem details: - with surrounding cellulitis, wound culture reveals small amount of coag - staph + strep - Vancomycin (03/29/24) --> Cefazolin 03/30 --> Cephalexin 03/31 - wound care visit 04/01/24, recommendations in d/c instructions (3) Leukocytosis: Status: Acute Problem details: - noted during recent stay at [facility] (+ E Coli UTI at that time) with PMN predominance - related to acute infection vs chronic condition (also anemic); concern for infectious process given elevated WBC + hypotension + tachycardia (UTI vs sacral ulcer) - peripheral smear reassuring, no acute abnormalities - normalized 03/31/24 (4) Normocytic anemia: Status: Acute Problem details: - no evidence of acute bleeding, continue to follow Hgb (per chart review, baseline 9-11 since January 2024, current Hgb 9.2) - no concerning findings on peripheral smear (5) Fall: Status: Acute Problem details: - mechanical/deconditioning vs related to acute infectious process vs arrythmia vs iatrogenic (on BID Valium) - telemetry reassuring, d/c'd on 03/31 - therapies following, SNF recommended and awaiting placement (6) Hyponatremia: Status: Acute Problem details: - history of Na as low as 124 in January 2024, has been 129-134 during stay, asymptomatic (7) Generalized anxiety disorder: Status: Acute Problem details: - as an outpatient, takes 2.5mg Diazepam BID - during stay we held her Diazepam and ordered 0.5mg Lorazepam Q6H prn, never needed this - given no need for lorazepam during stay, d/c home dose of Diazepam as well (8) Hypertension: Status: Acute Problem details: - home medications of Olmesartan, Metoprolol, Amlodipine - hypotensive on arrival to ED 03/29/24, held/discontinued Olmesartan and Amlodipine - Metoprolol increased from 25mg BID--> 50mg BID on 03/31/24 for elevated HR - discharge on Metoprolol 50mg (9) Atrial fibrillation with rapid ventricular response: Status: Acute Problem details: - rate controlled on Metoprolol, anticoagulated on Eliquis - 03/29: HR up to 130s, given Digoxin - 03/30: improved with HR 60s and improved BP; stopped Digoxin and continue monotherapy with Metoprolol. Continue Telemetry - 03/31: HR 90-110s, BP improved. Continue to hold Amlodipine and Olmesartan, increased Metoprolol from 25mg BID --> 50mg BID and will d/c on this - last TTE 01/2024: Final Impressions: 1. Technically limited exam. 2. Normal LV size, mildly increased wall thickness, hyperdynamic global systolic function with an estimated EF of 70 - 75%. 3. Right ventricular cavity size is normal, global systolic RV function is normal. 4. Normal left atrium size. 5. The aortic valve is sclerotic, no stenosis and trivial regurgitation. 6. The mitral valve is sclerotic, trace mitral regurgitation. 7. Tricuspid valve is normal. 8. Mildly increased estimated pulmonary pressures by tricuspid regurgitation velocity and right atrial pressure (35 mmHg plus RAP). 9. No pericardial effusion. DS: Summary Hospital Course Hospital Course: Linda Herrera) was admitted to the hospital on 03/29 after a fall at home, associated with weakness in the ER. Upon admission, noted to have hypotension, a fib with RVR (history of rate controlled a fib, anticoagulated on Eliquis), leukocytosis, and an elevated CRP, in addition to a new sacral wound with surrounding erythema. IVFs given and Vancomycin empirically initiated for concern of sepsis. Improved on hospital day 1; Vancomycin narrowed to Cefazolin 03/30, then transitioned to oral Cephalexin on 03/31 after self-discontinuing her IV. Completed 5 day course of antibiotics during stay. Blood, Urine, wound cultures all negative. Medication changes as noted above (increased Metoprolol, stopped Olmesartan, Amlodipine, and Diazepam). Seen by Wound Care, recommendations in d/c instructions. Worked with therapies for her weakness, they recommended SNF placement and she is discharging to [facility] on 04/04/24. Status at Discharge Functional status at discharge: uses cane/walker Overall status at discharge: patient is progressing back to baseline Time Spent with Patient Time attestation: Total time spent providing and/or coordinating discharge services: Time spent: Less than 30 minutes Exam Narrative: Exam Narrative: GEN: Alert and oriented, nontoxic, sitting in bedside chair HEENT: EOMIs bilaterally, no scleral icterus CV: RRR, No concerning murmurs R: LCTA bilaterally without concerning wheezing Ext: wwp, no concerning edema Skin: No concerning skin lesions or rashes on exposed skin, sacral wound covered Neuro: Nonfocal Psych: Appropriate Const: Vital Signs, click to edit/add: Vital Signs - 24 hr 04/03/24 10:45 04/03/24 14:31 04/03/24 19:00 Temperature 98.3 F 98.2 F 98.6 F Pulse Rate [Pulse Oximeter] 69 85 103 H Respiratory Rate 16 14 16 Blood Pressure [Le ft Arm] 143/76 H 114/56 L 130/45 L Blood Pressure [Ri ght Arm] 131/58 L Pulse Oximetry 97 96 94 Oxygen Delivery Me thod Room Air Room Air Room Air 04/03/24 21:58 04/03/24 21:58 Temperature Pulse Rate [Pulse Oximeter] 103 H Respiratory Rate 16 Blood Pressure [Le ft Arm] Blood Pressure [Ri ght Arm] Pulse Oximetry Oxygen Delivery Me thod DS: Data Data Completed and Pending Completed studies during hospitalization: Procedures Replacement of Right Hip Joint, Femoral Surface with Ceramic Synthetic Substitute, Cemented, Open Approach (01/14/24) Discharge Plan Discharge Disposition: [facility] Date of Admission: 03/29/24 13:28 Attending Provider on Discharge: Iraida Alcocer Consulting Providers: Iraida Alcocer Primary Care Provider: Danuta Ro Condition: Stable Anticipated Discharge Date/Time: 04/02/24 07:20 Discharge Medications: New metoprolol tartrate 50 mg tablet 50 mg PO BID Qty: 60 2RF Continued acetaminophen 325 mg tablet 650 mg PO TID Rx Instructions: AND NEEDED cholecalciferol (vitamin D3) 50 mcg (2,000 unit) capsule 50 mcg PO DAILY ferrous sulfate 325 mg (65 mg iron) tablet,delayed release (DR/EC) 325 mg PO DAILY magnesium gluconate 27 mg magnesium (500 mg) tablet 27 mg PO BID sennosides [senna] 8.6 mg tablet 8.6 mg PO HS sodium chloride 1,000 mg Tablet,Soluble 1,000 mg PO TIDWM Qty: 60 0RF Eliquis 5 mg Tablet 2.5 mg PO BID Qty: 90 0RF Discontinued oxycodone 5 mg tablet 2.5 mg PO Q4H PRN olmesartan 20 mg tablet 20 mg PO DAILY amlodipine 10 mg tablet 10 mg PO DAILY diazepam 5 mg Tablet 2.5 mg PO BID PRNQty: 12 0RF metoprolol tartrate 25 mg Tablet 25 mg PO BID Qty: 60 0RF Discharge Orders: Discharge Order (Routine); Ordered 04/04/24 Ordered By: Iraida Alcocer Additional Instructions: Medication changes: STOP: Amlodipine, Diazepam, and Olmesartan CHANGE: Metoprolol (you're increasing this from 25mg twice per day to 50mg twice per day) For the wound on your bottom: it will need to be cleansed and evaluated every other day. Coccyx stage 3 pressure ulcer wound care dressing orders: cleanse with unit approved wound cleanser apply medihoney to base of wound cover with sacral mepilex, change every other day and PRN Activity Level: No strenuous activity Discharge Diet: Regular Follow Up Appointments: Danuta Ro PA-C [Primary Care Provider] - 04/05/24 2:00 pm ([facility] for follow-up.) Forms: [facility] Info Instructions Wound Care: Coccyx stage 3 pressure ulcer wound care dressing orders: - cleanse with unit approved wound cleanser - apply medihoney to base of wound - cover with sacral mepilex, change every other day and PRN Admit to: SNF Discharge Potential: Good Length of Stay: <30 days Can use facility standing orders?: Yes Code Status: Full Code TEDs: N/A Rehab Potential: Good Therapy: Physical Therapy and Occupational Therapy Therapy Orders: Evaluate and Treat and Gait Training Oxygen: No Urinary Catheter: No Glucose Checks: n/a Lab Orders: n/a Orders are good >30 days: Yes Signature: Iraida Alcocer MD
[2024-04-04] MEDS: SODIUM CHLORIDE 1 GM TABLET PO ×2 (07:59→11:44)
[2024-04-04] MEDS: FERROUS SULFATE 325 MG TABLET PO (07:59)
[2024-04-04] MEDS: METOPROLOL TARTRATE 25 MG TABLET 50 MG PO (09:38)
[2024-04-04] MEDS: APIXABAN 5 MG TABLET 2.5 MG PO (09:39)
[2024-04-04] MEDS: MAGNESIUM OXIDE 400 MG TABLET 200 MG PO (09:39)
[2024-04-04 11:00] VITALS: BP 177/78; PULSE 79; RESP 16; TEMP 37.3; O2SAT 94
--- NOTE | 2024-04-04 12:57 | PC.NURSE ---
Pt discharged @ 1250 via wheelchair. Pts friend picked her up to bring to [facility]. Pt signed belongings and discharge forms. Pt was Ax0 x4 on discharge. Wound care done prior to discharge.
== END 2024-04-04 12:50 | DRG 871 ==
LOC: ED 12:10 → MEDSURG 12:44
PROVIDERS: Admitting Provider Family Medicine; Emergency Provider Family Medicine; PCP Physician Assistant Medical; Visit Provider Family Medicine
DX: A41.9 Sepsis, unspecified organism (principal); L89.153 Pressure ulcer of sacral region, stage 3; L03.317 Cellulitis of buttock; E87.1 Hypo-osmolality and hyponatremia; I48.20 Chronic atrial fibrillation, unspecified; B95.4 Other streptococcus as the cause of diseases classified elsewhere; R54 Age-related physical debility; F41.1 Generalized anxiety disorder; I10 Essential (primary) hypertension; Z79.01 Long term (current) use of anticoagulants; D64.9 Anemia, unspecified; D72.829 Elevated white blood cell count, unspecified; Z96.649 Presence of unspecified artificial hip joint; W19.XXXA Unspecified fall, initial encounter; Z91.81 History of falling
CPT/HCPCS: 36415; 70450; 72125; 72128; 72131; 80048; 80053; 80076; 81001; 83605; 83735; 84484; 85025; 85045; 86140; 87040; 87070; 87086; 93005; 94761; 97110; 97116; 97161; 97165; 97530; 97535; 99284; 99285; A9270; J0690; J3370; J3372; J7030; J7050

== ENCOUNTER 2024-04-15 18:53 | Inpatient (IN) | payer MEDICARE, BC, MEDICAID, SELFPAY ==
[2024-04-15] VITALS (25 sets, daily range): BP systolic 98–146; BP diastolic 62–122; PULSE 98–122; RESP 18–22; TEMP 36.6; O2SAT 79–95
--- NOTE | 2024-04-15 19:33 | ED.GENADULT ---
HPI - General Adult General Chief complaint: Shortness of Breath/Dyspnea Stated complaint: Shortness of Breath Time Seen by Provider: 04/15/24 19:01 History of Present Illness HPI narrative: This 88-year-old female comes in from a care facility because friends wanted her evaluated in the emergency department. She was seen earlier today and had different clinic or urgent care and had x-ray of her chest and I think some other tests. She does have a finding of CHF and there was also an infiltrate noted. The patient was prescribed doxycycline. She arrives here stating that she feels okay. She does not report any pain or shortness of breath. She arrives here with reassuring vital signs. She was hospitalized a couple weeks ago here with atrial fibrillation after having a couple falls. She had been living at home at that time but now is in a care facility. Related Data Home Medications ?Medication ?Instructions ?Recorded ?Confirmed acetaminophen 325 mg tablet 650 mg PO TID 03/29/24 03/29/24 cholecalciferol (vitamin D3) 50 50 mcg PO DAILY 03/29/24 03/29/24 mcg (2,000 unit) capsule ferrous sulfate 325 mg (65 mg 325 mg PO DAILY 03/29/24 03/29/24 iron) tablet,delayed release magnesium gluconate 27 mg 27 mg PO BID 03/29/24 03/29/24 magnesium (500 mg) tablet sennosides 8.6 mg tablet (senna) 8.6 mg PO HS 03/29/24 03/29/24 Previous Rx's ?Medication ?Instructions ?Recorded apixaban 5 mg tablet (Eliquis) 2.5 mg (1/2 x 5 mg) PO BID #90 tabs 01/19/24 sodium chloride 1,000 mg soluble 1,000 mg PO TIDWM #60 tabs 01/19/24 tablet metoprolol tartrate 50 mg tablet 50 mg PO BID #60 tabs 04/01/24 Allergies Allergy/AdvReac Type Severity Reaction Status Date / Time No Known Drug Allergies Allergy Verified 02/27/24 10:51 Review of Systems Status of ROS: Reports: 10 or more systems reviewed and unremarkable except as noted in History and below Narrative: Constitutional: No fevers, no weight gain or loss. Eyes: No discharge. No vision changes. HENT: No congestion, no sore throat, no ear pain. Cardiovascular: No chest pain, no palpitations. Respiratory: No shortness of breath, no wheezes. Gastrointestinal: No abdominal pain, no vomiting, no diarrhea. Genitourinary: No dysuria, no hematuria. Musculoskeletal: Normal range of motion. Skin: No rashes, no pruritis. Neurological: No dizziness, weakness, sensory change, speech change. Endo/Heme/Allergies: No bruising or bleeding. No polydipsia. Pysch: no suicidality, no anxiety, no insomnia. All other systems reviewed and are negative. [facility] Medical History (Updated 04/15/24 @ 19:39 by Jose Antonio Barnes MD) Frail elderly ?R54 - Age-related physical debility (ICD-10) Fall ?W19.XXXA - Unspecified fall, initial encounter (ICD-10) Weakness ?R53.1 - Weakness (ICD-10) Hyponatremia ?E87.1 - Hypo-osmolality and hyponatremia (ICD-10) Normocytic anemia ?D64.9 - Anemia, unspecified (ICD-10) Generalized anxiety disorder ?F41.1 - Generalized anxiety disorder (ICD-10) Hypertension ?I10 - Essential (primary) hypertension (ICD-10) Ulcerative colitis ?K51.90 - Ulcerative colitis, unspecified, without complications (ICD-10) Atrial fibrillation ?I48.91 - Unspecified atrial fibrillation (ICD-10) Surgical History (Updated 04/06/24 @ 00:01 by Baron Fong) 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 She lives on the top floor having to walk up a whole flight of stairs to get to where she lives. She has a female housemate who lives on the lower level. She is originally from [place] and moved to the [place] about 40 years ago. She is now planning to move back to [place] with her family. Her healthcare power of deputy county attorney is Robinson Rogers, her roommate and friend. Code status is full. She does not smoke and she does not drink. What is your current living situation?: I presently have a place to live Problems where you live: no known problems Problems where you live details: none known In the past 12 months, utilities in danger of being shut off: no In past 12 months, lack of transportation kept you from medical appts, meetings, work, or getting things needed for daily living: no In the past 12 mos, have been you worried that your food would run out before you had money to buy more?: never true In the past 12 mos, the food you bought just didn't last and you didn't have money to buy more?: never true Highest level of school completed/degree received: high school graduate Smoking Status: Former smoker What tobacco products do you use: cigarettes Smoking quit date/years: >15 years ago Do you use any of these nicotine containing products: None Second hand tobacco smoke exposure: No How often do you have a drink containing alcohol: never AUDIT-C Alcohol total score: 0 Non-prescribed substance use: denies use Caffeine: Yes How often does anyone, including family, friends and others, physically hurt you: never How often does anyone, including family, friends and others, insult or talk down to you: never How often does anyone, including family, friends and others, threaten you with harm: never How often does anyone, including family, friends and others, scream or curse at you: never service: No Exam Narrative: Exam Narrative: Constitutional: Well-developed, well-nourished, no acute distress. HEENT: Normocephalic, atraumatic. Neck: Normal range of motion. Nontender. Supple. Heart: Regular. No murmurs. Irregular Intact distal pulses. Lungs: Clear to auscultation. No chest discomfort. No wheezes, rhonchi, or rales. Abdomen: Normal bowel sounds. Nontender. No rebound tenderness. Genitalia: Deferred. Back: No midline tenderness. Normal range of motion. Extremities: Normal range of motion. No injury. Mild bilateral pedal edema. Skin: Intact. No rash. Warm. No erythema or pallor. Neurologic: No altered sensation. No weakness. Alert and oriented. Psychiatric: No suicidality. No anxiety or depression. No insomnia. Nursing notes and vitals signs are reviewed. Const: Vital Signs, click to edit/add: Vital Signs - 24 hr 04/15/24 18:57 Temperature 97.9 F Pulse Rate [Right Pulse Oximeter] 101 H Respiratory Rate 18 Blood Pressure [Ri ght Upper Arm] 100/81 Pulse Oximetry 93 Oxygen Delivery Me thod Room Air Course Vital Signs Vital signs: Initial Vital Signs Temperature 97.9 F 04/15/24 18:57 Temperature Source Temporal Artery Scan 04/15/24 18:57 Pulse Rate 101 H 04/15/24 18:57 Respiratory Rate 18 04/15/24 18:57 Blood Pressure 100/81 04/15/24 18:57 Blood Pressure Mean 87 04/15/24 18:57 Blood Pressure Position Sitting 04/15/24 18:57 Pulse Oximetry 93 04/15/24 18:57 Oxygen Delivery Method Room Air 04/15/24 18:57 Vital Signs Temperature 97.9 F 04/15/24 18:57 Pulse Rate 101 H 04/15/24 18:57 Respiratory Rate 18 04/15/24 18:57 Blood Pressure 100/81 04/15/24 18:57 Pulse Oximetry 93 04/15/24 18:57 Oxygen Delivery Method Room Air 04/15/24 18:57 Temperature 97.9 F 04/15/24 18:57 Pulse Rate 101 H 04/15/24 18:57 Respiratory Rate 18 04/15/24 18:57 Blood Pressure 100/81 04/15/24 18:57 Pulse Oximetry 93 04/15/24 18:57 Oxygen Delivery Method Room Air 04/15/24 18:57 Medical Decision Making MDM Narrative Medical decision making narrative: This patient is sent here for a 2nd opinion apparently after having chest x-ray and evaluation done elsewhere. She is residing in a care facility currently. The patient herself has no complaints. She does not report any pain or shortness of breath. She did have an x-ray earlier today and I reviewed results which indicated evidence of CHF and a small infiltrate. The patient received a prescription for doxycycline. On her visit here her vital signs are in normal range. She also has record sent here from her care facility and her oximetry has always been in the 90s%. Again she is not reporting any shortness of breath. It seems that the diagnosis and treatment of this patient is appropriate. She is not reporting any orthopnea. She does have some pedal edema and may benefit from a diuretic at some point but to administer that now would cause diuresis through the night which would be uncomfortable for her. She is okay to be discharged back to her care facility. The patient did receive an IV dose of dexamethasone 10 mg. Discharge Plan Discharge Clinical Impression: CHF (congestive heart failure) Patient Disposition: Home w/ Parent or Adult Condition: Unchanged Additional Instructions: Take medications as prescribed earlier today. Continue other medications also as prescribed. Follow up with MD for ongoing management. Return if worsening symptoms occur. Prescriptions: No Action acetaminophen 325 mg tablet 650 mg PO TID Rx Instructions: AND NEEDED cholecalciferol (vitamin D3) 50 mcg (2,000 unit) capsule 50 mcg PO DAILY ferrous sulfate 325 mg (65 mg iron) tablet,delayed release (DR/EC) 325 mg PO DAILY magnesium gluconate 27 mg magnesium (500 mg) tablet 27 mg PO BID sennosides [senna] 8.6 mg tablet 8.6 mg PO HS metoprolol tartrate 50 mg tablet 50 mg PO BID Qty: 60 2RF sodium chloride 1,000 mg Tablet,Soluble 1,000 mg PO TIDWM Qty: 60 0RF Eliquis 5 mg Tablet 2.5 mg PO BID Qty: 90 0RF Follow Up/Referrals: Danuta Ro PA-C [Primary Care Provider] - Stand Alone Forms: [employer] Info Instructions
[2024-04-15] MEDS: dexAMETHasone 4 MG/ML VIAL 10 MG IV (19:40)
--- OUTSIDE RECORDS SUMMARY | 2024-04-15 20:06 | XMS_ITS | Clinical Summary ---
Author Organization [facility] Address [place], [place] [address] Care Team Providers Care Actuary Manager Name Role Phone Danuta Ro Primary Care Provider Allergies Active Allergy Reactions Criticality Noted Date Comments Lisinopril Shortness Of Breath,Chest Pain 06/18 Medications Medication Sig Dispensed Refills Start Date End Date Status cholecalciferol (VITAMIN D) 2,000 unit capsule Take 1 capsule by mouth once daily. 0 12/31/2010 Active magnesium gluconate (MAGONATE) 500 mg Tab Take 1 tablet by mouth 2 times daily. 0 12/31/2010 Active WalkerIndications :Balance problem Walker with front wheels for home use. 1 Each 05/19/2021 Active Senna 8.6 mg tablet TAKE 1 TABLET BY MOUTH ONCE DAILY AT BEDTIME. HOLD FOR DIARRHEA. DX CONSTIPATION 01/28/2024 Active ferrous sulfate 325 mg delayed release tablet TAKE 1 TABLET BY MOUTH DAILY FOR 8 WEEKS. FOR POST OP ANEMIA. 02/01/2024 Active Eliquis 2.5 mg tabletIndications :Atrial fibrillation, unspecified type (HC) TAKE ONE TABLET BY MOUTH TWICE DAILY AT 8AM AND 8PM.* 60 Tablet 2 02/14/2024 Active sodium chloride 1,000 mg soluble tabletIndications :Hyponatremia TAKE ONE TABLET BY MOUTH THREE TIMES DAILY WITH MEALS AT 8AM, NOON, AND 5PM. 90 Tablet 03/15/2024 Active metoprolol tartrate (LOPRESSOR) 50 mg tabletIndications :Hypertension, unspecified type,Atrial fibrillation, unspecified type (HC) Take 1 Tablet (50 mg) by mouth two times daily. 04/04/2024 Active acetaminophen (TYLENOL) 325 mg tablet Take 2 Tablets (650 mg) by mouth three times daily. AND 2 tabs (650 mg) every 4 hours PRN. Max acetaminophen dose: 4000mg in 24 hrs. 04/11/2024 Active diazePAM (VALIUM) 2 mg tablet Take 1 Tablet (2 mg) by mouth once daily if needed. 04/09/2024 04/22/20 Active furosemide (LASIX) 20 mg tablet Take 1 Tablet (20 mg) by mouth once daily in the morning. 04/15/2024 04/19/20 Active albuterol-ipratro pium (DUONEB) (2.5-0.5 mg) in 3 mL NEBULIZATION solution Inhale 3 mL via a nebulizer three times daily. Until: 04/23/2024. 04/15/2024 04/23/20 Active turmeric root extract 500 mg capIndications:Ar thritis Take by mouth. 0 08/08/2014 04/09/20 Discontinu ed(*Patien t states no longer taking) sulfaSALAzine (AZULFIDINE) 500 mg tabletIndications :Ulcerative colitis with complication, unspecified location (HC) Take 1 tablet by mouth every morning, afternoon, and evening. 270 tablet. 3 02/12/2021 04/09/20 Discontinu ed(*Patien t states no longer taking) oxyCODONE (ROXICODONE) 5 mg immediate release tablet TAKE HALF TABLET BY MOUTH EVERY FOUR HOURS NEEDED* 02/06/2024 04/09/20 Discontinu ed(*Patien t states no longer taking) acetaminophen (TYLENOL) 325 mg tablet TAKE 2 TABS (650MG) BY MOUTH THREE TIMES DAILY;TAKE 2 TABS (650MG) ONCE DAILY NEEDED FOR RIGHT HIP PAIN 02/01/2024 04/15/20 Discontinu ed(*Medica tion adjustment ) olmesartan (BENICAR) 20 mg tabletIndications :Hypertension, unspecified type Take 1 Tablet (20 mg) by mouth once daily. 30 Tablet 1 02/14/2024 04/09/20 Discontinu ed(*Patien t states no longer taking) metoprolol tartrate (LOPRESSOR) 25 mg tabletIndications :Hypertension, unspecified type,Atrial fibrillation, unspecified type (HC) TAKE 1 TABLET BY MOUTH TWICE DAILY AT 8AM AND 8PM. HOLD MEDICATION FOR SPB <100 OR HEART RATE <60.* 60 Tablet 2 02/14/2024 04/09/20 Discontinu ed(*Medica tion adjustment ) amLODIPine (NORVASC) 10 mg tabletIndications :Hypertension, unspecified type Take 1 Tablet (10 mg) by mouth once daily. 90 Tablet 3 02/19/2024 04/09/20 Discontinu ed(*Patien t states no longer taking) diazePAM (VALIUM) 5 mg tabletIndications :Anxiety TAKE 0.5 TABLETS BY MOUTH TWICE DAILY NEEDED 30 Tablet 03/04/2024 04/09/20 Discontinu ed(*Patien t states no longer taking) Active Problems Problem Noted Date Diagnosed Date Protein-calorie malnutrition 09/10/2021 Urinary frequency 01/25/2016 Sensorineural hearing loss, bilateral 01/27/2014 Chronic anemia 06/06/2011 Colon polyp 05/20/2011 Overview (05/20/2011): Colonoscopy 05/2011 polyps, no colitis repeat in 3 years Osteoporosis 06/10/2010 Overview (06/10/2010): dexa 06/18 Hypertension 06/08/2010 Anemia, macrocytic 06/08/2010 Vitamin D deficiency 05/25/2010 Enthesopathy of ankle and tarsus, unspecified Generalized anxiety disorder 06/18/2007 Ulcerative colitis, unspecified Resolved Problems Problem Noted Date Diagnosed Date Resolved Date Elevated BP 11/19/2008 06/08/2010 Anxiety state, unspecified 0 10/31/2008 Encounters Date Type Department Care Team Description 04/15/2024 9:00 AM CDT [facility] [address] [address] Jessica Gramajo NP Transitional Care Visit (Follow up); Concerns (Oxygen now scheduled per on-call d/t dropping O2 sats per nursing 04/12/Small open area on bottom noted 04/12, nuclear operations specialist gave orders for barrier cream) 04/15/2024 Nurse Triage [address] [address] Jessica Gramajo NP Imaging 04/12/2024 Nurse Triage [address] [address] Jessica Gramajo NP Oxygen Monitoring 04/09/2024 9:00 AM CDT [facility] [address] [address] Jessica Gramajo NP Transitional Care Visit (Admit) 04/07/2024 Nurse Triage [address] [address] Jessica Gramajo NP Fall; Blood In Stool 04/07/2024 Refill [facility] [address] [place] [address] Danuta Ro PA Refill Request (Olmesartan) 04/06/2024 Nurse Triage [address] [address] Nikki Lara MD Concerns 04/05/2024 Nurse Triage [address] [address] Jessica Gramajo NP Fall 04/01/2024 Transcribe Orders [facility] [address] [place] [address] [facility] [place] 03/29/2024 Orders Only [facility] Scanner 1 scan: (1-Ord) [facility], CERVICAL SPINE WO CONTRAST, 03/29/2024 03/29/2024 Orders Only [facility] Scanner 1 scan: (1-Ord) [facility], LUMBAR SPINE WO CONTRAST, 03/29/2024 03/29/2024 Orders Only [facility] Scanner 1 scan: (1-Ord) [facility], THORACIC SPINE WO CONTRAST, 03/29/2024 03/29/2024 Orders Only [facility] Scanner 1 scan: (1-Ord) [facility], HEAD/BRAIN WITHOUT CONTRAST, 03/29/2024 03/29/2024 Lab Requisition [facility] [phone] Iraida Alcocer MD 03/13/2024 Telephone [facility] [address] [place] [address] Danuta Ro PA Corner Brace Block Machine Operator 03/13/2024 Refill [facility] [address] [place] [address] Danuta Ro PA Refill Request (Sodium Chloride) 03/03/2024 Refill [facility] [address] [place] [address] Danuta Ro PA Refill Request (diazePAM (VALIUM) 5 mg tablet) 02/26/2024 Telephone [facility] [address] [place] [address] Danuta Ro PA Questions (Heart monitor follow up questions from 02/21/24 closed encounter ) 02/21/2024 Telephone [facility] [address] [place] [address] Danuta Ro PA Medication Management (Heart Monitor Questions) 02/14/2024 3:30 PM CDT Office Visit [address] [place] [address] [place] [id number] 02/14/2024 2:40 PM CDT Office Visit [facility] [address] [place] [address] Danuta Ro PA Hospital F/U (Post hospital f/u) 02/14/2024 Refill [facility] [address] [place] [address] Danuta Ro PA Refill Request (amLODIPine (NORVASC) 10 mg tablet) 02/14/2024 Travel 02/12/2024 Orders Only [facility] Scanner 1 scan: (1-Ord) INCOMING RECORDS-EKG, [facility], 02/12/2024 02/12/2024 Orders Only [facility] Scanner 1 scan: (1-Ord) INCOMING RECORDS-CT, [facility], 02/12/2024 02/12/2024 Orders Only [facility] Scanner 1 scan: (1-Ord) INCOMING RECORDS-LABS, [facility], 02/12/2024 02/12/2024 Telephone [facility] [address] [place] [address] Danuta Ro PA Appointment (CLOSED PRACTICE) 02/09/2024 Telephone [facility] [address] [place] [address] Danuta Ro PA Verbal orders (PT for right femur fracture) 02/03/2024 Refill [facility] [address] [place] [address] Danuta Ro PA Refill Request (Diazepam) 01/15/2024 10:00 AM CDT Ancillary Procedure [facility] [address] [place] [address] 01/15/2024 Travel from Last 3 Months Immunizations Name Administration Dates Next Due AMB INFLUENZA IIV3 (AGE 65+ YRS) PF (Flu Clinic Only) 04/12/2018,04/12/2017 AMB Influenza, IIV3 (Age >=3 years)(Flu Clinic Only) 04/17/2013,05/05/2008 AMB Influenza, IIV4 PF (=>6 mos Flulaval,Fluzone Fluarix)(Flu Clinic Only) 03/31/2014 Amb Influenza, Inact (High-d ose) (Flu Clinic Only) 04/24/2015 COVID-19 vaccine (Pfizer-Bio NTech 30mcg/0.3mL) 12YO+ FARHAN-SUCROSE PF, MDV 12/01/2021 COVID-19 vaccine (Pfizer-Bio NTech 30mcg/0.3mL) PF, MDV 04/14/2021,09/17/2020,08/27/2020 Hepatitis B (Adult) 10/19/1998,04/24/1998 Influenza, High-dose Inactivated 04/20/2016,04/09 Influenza, IIV3 (Age 6-35 mos) 04/07/2011 Influenza, IIV3 (Age >=3 years) 04/17/20 13,03/30/2012,04/07/2011,2008,05/05/2008,04/30/2007,05/24/2006,1 Influenza, IIV4 04/12/2017,03/31/2014 Influenza, Inactivated AIIV4 (Age 65+ Years) Preserv Free 04/28/2023,04/20/2022,04/14/2021,2019 Influenza, Inactivated IIV3 (Age 65+ Years) Preserv Free 04/10/2019 Pneumococcal Poly,23-Valent (Pneumovax) 05/24/2006 Pneumococcal conj 13-Valent (Prevnar 13) 11/25/2014,11/25/2014 Tdap 04/07/2011 Zoster (Shingrix-RZV, recombinant) 12/10/2018, Zoster (Zostavax-ZVL, live) 04/09/2011 Family History Medical History Relation Name Comments Cancer Brother 1 Stroke Brother 2 Heart Disease Father Stroke Mother Heart Disease Sister Cancer-breast No Family History Cancer-ovarian No Family History Relation Name Status Comments Brother 1 Brother 2 Father Mother Sister Social History Tobacco Use Types Packs/Day Years Used Date Smoking Tobacco: Former Smokeless Tobacco: Never Tobacco Cessation:Counseling Given: Yes Alcohol Use Standard Drinks/Week Comments No 0 (1 standard drink = 0.6 oz pur e alcohol) PHQ-2 Answer Date Recorded PHQ-2 TOTAL SCORE 4 04/28/2020 Social Connections Answer Date Recorded Frequency of Communication with Friends and Fami ly 0 02/14/2024 Financial Resource Strain Answer Date R ecorded Difficulty of Paying Living Expenses 3 02/14/2024 Difficulty of Paying Living Expenses Not on file 02/14/2024 Food Insecurity Answer Date Recorded Worried About Running Out of Food in the Last Ye ar 1 02/14/2024 Transportation Needs Answer Date Record ed Lack of Transportation (Medical) 1 02/14/2024 Housing Stability Answer Date Recorded Unable to Pay for Housing in the Last Year 1 02/14/2024 Sex and Gender Information Value Date Recorded Sex Assigned at Not on file Gender Identity Not on file Sexual Orientation Not on file Obstetrics History Last Filed Vital Signs Vital Sign Reading Time Taken Comments Blood Pressure 97/60 02/14/2024 2:38 PM CDT Pulse 72 02/14/2024 2:38 PM CDT Temperature 36.7 ??C (98 ??F) 05/17/2019 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 Respiratory Rate - - Oxygen Saturation 96% 02/14/2024 2:38 PM CDT Inhaled Oxygen Concentration - - Weight 44.5 kg (98 lb 1.6 oz) 01/10/2024 11:09 A M CDT Height 157 cm (5' 1.81) 12/01/2021 11:39 AM CDT Body Mass Index 18.05 12/01/2021 11:39 AM CDT Plan of Treatment Health Maintenance Due Date Last Done Comments RSV vaccine for adults or (1 - 1-dose 75+ series) 2012 Tetanus booster 04/07/2021 04/07/2011, 04/07/2011 Depression screening for age 12+ 04/28/2021 04/28/2020, 12/04/2018, 12/01/2017, Additional history exists Medicare Wellness for age 65+ 04/29/2021, 12/04/2018, 11/02/2016, Additional history exists BMI (ht and wt on same day) for age 18+ 12/01/2022 12/01/2021, 09/10/2021, 07/28/2021, Additional history exists COVID-19 vaccine series ( season) 2024 12/01/2021, 04/14/2021, 09/17/2020, Additional history exists Influenza for age 65+ 03/10/2024 04/28/2023 , 04/20/2022, 04/14/2021, Additional history exists Tdap Completed 04/07/2011 DEXA/DXA scan for age 65+ Completed 08/27/2013, Pneumococcal series for age 65+ Completed 11/25/2014, 11/25/2014, 05/24/2006 Zoster (shingles) series for age 50+ Completed 12/10/2018, 09/24/2018, 04/09/2011 Procedures Procedure Name Priority Date/Time Associated Diagnosis Comments LAB TRACKING EVENT Routine 03/29/2024 10 :48 AM CDT PERIPHERAL BLD MORPHOLOGY Routine 03/29/2024 10:48 AM CDT SCAN-CT INTERPRETATION 4 12:00 AM CDT SCAN-CT INTERPRETATION 4 12:00 AM CDT SCAN-CT INTERPRETATION 4 12:00 AM CDT SCAN-CT INTERPRETATION 4 12:00 AM CDT BASIC METABOLIC PANEL Routine 02/14/2024 3:26 PM CDT Hypertension, unspecified type Hyponatremia EXTENDED HOLTER Routine 02/14/2024 12:00 AM CDT Atrial fibrillation, unspecified type (HC) SCAN CORRESP-EKG RESULTS 02/12/2024 12:00 AM CDT SCAN CORRESP-LABORATORY RESULTS 02/12/2024 12:00 AM CDT SCAN CORRESP-IMAGING 02/12/2024 12:00 AM CDT ECHO TTE COMPLETE WO CONTRAST Routine 01/15/2024 12:27 PM CDT Atrial fibrillation (HC) XR DXA BONE DENSITY 2 SITES AXIAL Routine 08/27/2013 11:50 AM FLOUR WORKER Osteoporosis from Last 3 Months or Most Recently Relevant to Health Maintenance Results * LAB TRACKING EVENT (03/29/2024 10:48 AM CDT) Other (Other) Client Collect / Unknown 03/29/2024 10:48 AM CDT 03/29/2024 10:19 PM CDT Iraida Alcocer MD LAB BILL ONLY [facility] [address] [place] [address], * PERIPHERAL BLD MORPHOLOGY (03/29/2024 10:48 AM CDT) Case Report Special Hematology Report ? Case: [id number] ? Authorizing Provider: ??Iraida Alcocer MD ?Collected: ? 03/29/2024 1048 ? Ordering Location: ? [facility] ?Received: ?03/30/2024 0314 ? Pathologist: ? Byron Maurer MD ? Specimen: ?Peripheral Blood ? 04/01/2024 11:41 AM [facility] [employer] [employer] LABORATORY-C ENTRAL LABORATORY Final Diagnosis PERIPHERAL BLOOD: 1. Mild normocytic anemia 2. Leukocytosis reflecting mild absolute neutrophilia with monocytosis 3. No diagnostic qualitative abnormalities in the current sampling 4. See comment 04/01/2024 11:41 AM [facility] [employer] LABORATORY-C ENTRAL LABORATORY Comment There are no morphologic features to suggest the etiology of the neutrophilia and monocytosis. The findings may be reactive. There are no definitive dysplastic features. However, if the neutrophilia and monocytosis persist without etiology, increase in magnitude, or additional hemogram abnormalities develop (over the next six to nine months), consideration should be given to repeating a peripheral blood morphology study. The features of the anemia are nonspecific. The differential includes iron deficiency, anemia of chronic disease, anemia of chronic renal insufficiency, anatomic blood loss and medication effect. There is no morphologic evidence of hemolysis or findings to suggest a primary bone marrow disorder. This case was also reviewed by Cate Garzon [place], ([facility]). 04/01/2024 11:41 AM CDT [facility]-C ENTRAL LABORATORY Clinical Information The patient is an 88-year-old female. Pertinent clinical information: Chronic leukocytosis/rashmi trophilia and normocytic anemia. Per EPIC: Additional history includes hypertension, protein calorie malnutrition, ulcerative colitis. 04/01/2024 11:41 AM CDT [facility]TRAL LABORATORY CBC and Differential HEMATOLOGY PARAMETERS Tested at: ??[facility] ? RESULTS ??EXPECTED VALUES WBC: ? 15.0 ? 4.5-68q5691/cumm ?ELEVATED RBC: ? 3.46 ? 4.00-5.20 mil/cumm ??DECREASED HGB: ? 10.4 ? 12-16 gm/dl ? DECREASED HCT: ? 31.8 ? 33-51% ?DECREASED MCV: ? 91.9 ? 80-100 fl ? NORMOCYTIC MCH: ? 30.1 ? 26-34 pg ? MCHC: ?32.7 ? 32-36 gm/dl ? NORMOCHROMIC RDW: ? 13.1 ? 11.5-15.5% ? PLT: ? 371 ?[id number]/u L ? Retic: ?? 0.9 ?0.5-1.5% ? Differential ?Absolute (%) ?Expected (%) ?(x10*9/L) ? (x10*9/L) Neutrophils: ?11.86 (79.1) ?1.7-7.0 (42-72%) ??ELEVATED Lymphocytes: ?1.78 (11.9) ? 0.9-2.9 (20-44%) ?? Monocytes: ?1.27 (8.5) ? <0.9 (0-11%) ? ELEVATED Eosinophils: ?0.03 (.2) ?<0.5 (0-2%) ? Basophils: ?0.03 (.2) ?<0.3 (<3.0%) ? Imm Grans: ?0.02 (.1) ?<0.3 (0-3%) ? (Metas, Myelos,Pros) 04/01/2024 11:41 AM CDT [facility] Microscopic Description The final diagnosis is based on microscopic examination of an appropriately stained blood smear. 04/01/2024 11:41 AM CDT [facility] Additional Information Interpreted at [facility] Central Laboratory - [address] [facility] [address], [place] [address] 04/01/2024 11:41 AM CDT [facility] Blood (Peripheral Blood) 03/29/2024 10:48 AM CDT 03/30/2024 3:14 AM CDT Iraida Alcocer MD [facility] [address] [place] [address], * SCAN-CT INTERPRETATION (03/29/2024 12:00 AM CDT) Only the most recent of4 resultswithin the time period is included. Anatomical Region Laterality Modality Other Scanner OTHER * (ABNORMAL) BASIC METABOLIC PANEL (02/14/2024 3:26 PM CDT) SODIUM 134(L) 136 - 145 mmol/L 02/15/2024 12:17 AM [facility] TRAL LABORATORY POTASSIUM 4.9 3.5 - 5.1 mmol/L 02/15/2024 12:17 AM [facility] CHLORIDE 99 98 - 107 mmol/L 02/15/2024 12:17 AM [facility] CO2,TOTAL 26 22 - 29 mmol/L 02/15/2024 12:17 AM [facility] ANION GAP 9 5 - 18 02/15/2024 12:17 AM [facility] GLUCOSE 118(H) 70 - 99 mg/dL 02/15/2024 12:17 AM [facility] CALCIUM 9.3 8.8 - 10.2 mg/dL 02/15/2024 12:17 AM [facility] TRAL LABORATORY BUN 22 8 - 23 mg/dL 02/15/2024 12:17 AM [facility] TR[facility] LAB[facility] CREATININE 0.74 0.50 - 0.90 mg/dL 02/15/2024 12:17 AM [facility] TR[facility] LABORATORY BUN/CREAT RATIO 30(H) 10 - 20 12:17 AM [facility] eGFR 79(L) >90 mL/min/1.7 3m2 02/15/2024 12:17 AM [facility] Comment:As of 2021, eG FR is calculated by the CKD-EPI creatinine equation without race adjustment. ??eGFR can be influenced by muscle mass, exercise, and diet. ??The reported eGFR is an estimation only and is only applicable if the renal function is stable. Blood BLOOD SPECIMEN / Unknown Venipuncture / Unknown 02/14/2024 3:26 PM CDT 02/14/2024 3:27 PM CDT Danuta WILSON CHEMISTRY [facility] [address] * ZIO PATCH XT - weekly to monthly symptoms. (02/14/2024 12:00 AM CDT) Danuta WILSON CARDIAC SERVICE S ORD * SCAN CORRESP-LABORATORY RESULTS (02/12/2024 12:00 AM CDT) Scanner OTHER * SCAN CORRESP-EKG RESULTS (02/12/2024 12:00 AM CDT) Scanner OTHER * SCAN CORRESP-IMAGING (02/12/2024 12:00 AM CDT) Anatomical Region Laterality Modality Other Scanner OTHER * ECHO TTE COMPLETE WO CONTRAST (01/15/2024 12:27 PM CDT) AORTIC VALVE MEAN PG 5 mmHg PEAK TR VELOCITY 2.9 m/s LVEDD 3.3 cm EJECTION FRACTION 70 - 75% Anatomical Region Laterality Modality Ultrasound 01/15/2024 10:5 9 AM CDT Narrative 01/15/2024 12:42 PM CDT ECHOCARDIOGRAM COREEN VALENTIN ? Accession#: ?? [id number] : ?1935 88 years Study Date: ?? 01/15/2024 10:59:53 AM Gender: F ?BP: ? 157/74 mmHg Height: 155.00 cm ?BSA: ?1.42 m? ? ? Weight: 46.00 kg ? Tech: ? MTS ? Referring MD: CHRISTINA BRIONES Site: ? [facility] Reading Location: [facility] Patient Location: Inpatient. Procedure: 2D, Color Doppler and Spectral Doppler. Indication for study: Atrial fibrillation (HC) Cardiac Rhythm: Regular.Study quality: Technically limited. Imaging limitations: This study was subject to imaging limitations due to lying in a supine position. Final Impressions: 1. Technically limited exam. 2. Normal LV size, mildly increased wall thickness, hyperdynamic global systolic function with an estimated EF of 70 - 75%. 3. Right ventricular cavity size is normal, global systolic RV function is normal. 4. Normal left atrium size. 5. The aortic valve is sclerotic, no stenosis and trivial regurgitation. 6. The mitral valve is sclerotic, trace mitral regurgitation. 7. Tricuspid valve is normal. 8. Mildly increased estimated pulmonary pressures by tricuspid regurgitation velocity and right atrial pressure (35 mmHg plus RAP). 9. No pericardial effusion. Chamber Sizes and Function Normal left ventricular size, mildly increased wall thickness, hyperdynamic global systolic function with an estimated EF of 70 - 75%. Left atrial size is normal. Right ventricular cavity size is normal, global systolic RV function is normal. The right atrium is normal. The pulmonary artery is not well visualized. The sinus of Valsalva is normal sized. The ascending aorta is normal sized. Valves, RV Pressures and Diastolic Function The aortic valve is sclerotic, no stenosis and trivial regurgitation. The mitral valve is sclerotic, trace mitral regurgitation. Indeterminate pattern of LV diastolic filling. The tricuspid valve is normal in structure. Tricuspid regurgitation is trace regurgitation. The tricuspid regurgitant velocity is 2.9 m/s, the estimated right ventricular systolic pressure is 35 mmHg plus right atrial pressure. There is mildly increased estimated pulmonary pressure by tricuspid regurgitation velocity and right atrial pressure. The pulmonic valve is normal. Trace pulmonary regurgitation. Masses, Effusion, Shunts There is no pericardial effusion. The inferior vena cava is normal sized, respiratory size variation greater than 50%. Interatrial septum is not well visualized. MEASUREMENTS AND CALCULATIONS 2-D Measurements and LV Function: LVID (d) 3.3 cm LV FS% (2D) ?? 35 % LVID (s) 2.2 cm LVOT diameter 2.2 cm IVS (d) ??1.1 cm HR ?86 bpm LVPW (d) 1.0 cm Ao Sinus 3.3 cm Asc Ao ?? 3.4 cm Diastology: Mitral ?Tissue Doppler E Peak 0.6 m/s ??e', Lateral ?0.04 m/s A Peak 0.9 m/s E/A ?0.7 DT ? 138 msec Aortic Valve: Vmax ? 1.5 m/s ??YULISSA (V) ?? 1.82 cm? ? ? VTI ?0.32 m ?? YULISSA (I) ?? 1.96 cm? ? ? LVOT V max 0.7 m/s ??Max PG ?9 mmHg LVOT VTI ?? 0.16 m ?? Mean PG ?? 5 mmHg SV ? 63 ml ?Dim Index 0.50 SV index ?? 45 ml/m? ? ? CO ?5.5 l/min ?CI ?3.9 l/min/m? ? ? Mitral Valve: MVA ?5.5 cm? ? ? MV P 1/2 40 msec Tricuspid Valve and estimated PA pressures: TR Vmax 2.9 m/s TR maxG 35 mmHg . This study was interpreted by an [facility] accredited facility. CC: HIM (med records) [facility], Med/Surg - IP [facility]. ??Final ?? Procedure Note Madisyn Richards, [facility] - 01/15/2024 ECHOCARDIOGRAM COREEN VALENTIN : 1935 88 years Study Date: 01/15/2024 10:59:53 AM Gender: F BP: 157/74 mmHg Height: 155.00 cm BSA: 1.42 m? ? ? Weight: 46.00 kg Tech: MTS Referring MD: CHRISTINA BRIONES Site: [facility] Reading Location: [facility] Patient Location: Inpatient. Procedure: 2D, Color Doppler and Spectral Doppler. Indication for study: Atrial fibrillation (HC) Cardiac Rhythm: Regular.Study quality: Technically limited. Imaging limitations: This study was subject to imaging limitations due tolying in a supine position. Final Impressions: 1. Technically limited exam. 2. Normal LV size, mildly increased wall thickness, hyperdynamic globalsystolic function with an estimated EF of 70 - 75%. 3. Right ventricular cavity size is normal, global systolic RV functionis normal. 4. Normal left atrium size. 5. The aortic valve is sclerotic, no stenosis and trivialregurgitation. 6. The mitral valve is sclerotic, trace mitral regurgitation. 7. Tricuspid valve is normal. 8. Mildly increased estimated pulmonary pressures by tricuspidregurgitation velocity and right atrial pressure (35 mmHg plus RAP). 9. No pericardial effusion. Chamber Sizes and Function Normal left ventricular size, mildly increased wall thickness,hyperdynamic global systolic function with an estimated EF of 70 - 75%.Left atrial size is normal. Right ventricular cavity size is normal,global systolic RV function is normal. The right atrium is normal. Thepulmonary artery is not well visualized. The sinus of Valsalva is normalsized. The ascending aorta is normal sized. Valves, RV Pressures and Diastolic Function The aortic valve is sclerotic, no stenosis and trivial regurgitation. Themitral valve is sclerotic, trace mitral regurgitation. Indeterminatepattern of LV diastolic filling. The tricuspid valve is normal instructure. Tricuspid regurgitation is trace regurgitation. The tricuspidregurgitant velocity is 2.9 m/s, the estimated right ventricular systolicpressure is 35 mmHg plus right atrial pressure. There is mildly increasedestimated pulmonary pressure by tricuspid regurgitation velocity and rightatrial pressure. The pulmonic valve is normal. Trace pulmonaryregurgitation. Masses, Effusion, Shunts There is no pericardial effusion. The inferior vena cava is normal sized,respiratory size variation greater than 50%. Interatrial septum is notwell visualized. MEASUREMENTS AND CALCULATIONS 2-D Measurements and LV Function: LVID (d) 3.3 cm LV FS% (2D) 35 % LVID (s) 2.2 cm LVOT diameter 2.2 cm IVS (d) 1.1 cm HR 86 bpm LVPW (d) 1.0 cm Ao Sinus 3.3 cm Asc Ao 3.4 cm Diastology: Mitral Tissue Doppler E Peak 0.6 m/s e', Lateral 0.04 m/s A Peak 0.9 m/s E/A 0.7 DT 138 msec Aortic Valve: Vmax 1.5 m/s YULISSA (V) 1.82 cm? ? ? VTI 0.32 m YULISSA (I) 1.96 cm? ? ? LVOT V max 0.7 m/s Max PG 9 mmHg LVOT VTI 0.16 m Mean PG 5 mmHg SV 63 ml Dim Index 0.50 SV index 45 ml/m? ? ? CO 5.5 l/min CI 3.9 l/min/m? ? ? Mitral Valve: MVA 5.5 cm? ? ? MV P 1/2 40 msec Tricuspid Valve and estimated PA pressures: TR Vmax 2.9 m/s TR maxG 35 mmHg . This study was interpreted by an [facility] accredited facility. CC: HIM (med records) [facility], Med/Surg - IP [facility]. 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 Procedure Note Loretta Fox E - 08/28/2013 Please see scanned document for results of this study. Danuta WILSON DEXA from Last 3 Months or Most Recently Relevant to Health Maintenance Advance Directives Documents on File Type Date Recorded Patient Refining Still Operator Expl anation Healthcare Directive 12/12/2017 1:09 PM [facility] DIRECTIVE, TEDDY LAW, 03/30/17 Care Teams Actuary Manager Relationship Specialty Start Date End Date Danuta Ro PA [address] [place] [address] PCP - General Physician Director Plans 02/12/24
[2024-04-15] MEDS: METOPROLOL TARTRATE 25 MG TABLET PO ×2 (22:01→22:31)
[2024-04-16] VITALS (15 sets, daily range): BP systolic 114–136; BP diastolic 54–106; PULSE 78–112; RESP 18–20; TEMP 36.2–36.6; O2SAT 90–95; BMI 22.3; BMI 21.7
--- NOTE | 2024-04-16 00:01 | CRLHL7_ITS ---
For Patients: As a result of the Century Cures Act, medical imaging exams and procedure reports are released immediately into your electronic medical record. You may view this report before your referring provider. If you have questions, please contact your health care provider. INDICATION: Dyspnea. TECHNIQUE: Chest radiograph, 1 view. COMPARISON: None. FINDINGS: Cardiovascular/Mediastinum: Magnified cardiac silhouette. Atherosclerotic calcifications of the aortic arch. Lungs: Patchy ill-defined opacification in the left mid lung zone. Mild pulmonary vascular congestion and interstitial edema. Airways: Trachea remains midline. Pleura: Small pleural effusions. No pneumothorax. Bones: No acute osseous abnormalities. Upper abdomen: Unremarkable. IMPRESSION: 1. Patchy ill-defined opacification of the left mid lung zone may represent a pneumonia in the appropriate clinical setting. 2. Mild pulmonary vascular congestion and interstitial edema, with small pleural effusions. Follow-up CT may be considered for improved characterization. Dictated by Cullen Guerra MD @ 04/16/2024 12:49:40 AM (Electronically Signed)
[2024-04-16] MEDS: DIGOXIN 250 MCG TABLET PO (00:05)
[2024-04-16 00:32] LABS: Troponin, Point-of-Care* 0.02 ng/ml (0.01-0.04)
[2024-04-16 00:37] LABS: Basophils Percent Auto 0.1 % (0.0-3.0); Hematocrit 28.7 % (33.0-51.0); Hemoglobin* 8.8 gm/dL (12.0-16.0); Immature Granulocytes Pct Auto 0.3 %; Lymphocytes Percent Auto 2.1 % (20-44); Mean Corpuscular HGB Conc 31 gm/dL (32-36); Mean Corpuscular Hemoglobin 30 pg (26-34); Mean Corpuscular Volume 98 fL (80-100); Monocytes Percent Auto 1.5 % (0.0-11.0); Platelet Count* 461 K/uL (140-440); RDW Coefficient of Variation % 15.5 % (11.5-15.5); Red Blood Count 2.94 m/uL (4.00-5.20); White Blood Count* 15.84 K/uL (4.50-11.00)
[2024-04-16] MEDS: FUROSEMIDE 10 MG/ML inj 40 MG IVP (00:38)
[2024-04-16 00:39] LABS: Slide Review Reflex No
[2024-04-16 00:52] LABS: Chloride* 96 mmol/L (96-114); Potassium* 4.8 mmol/L (3.6-5.1); Sodium* 129 mmol/L (135-149)
[2024-04-16 00:55] LABS: Anion Gap 6 mEq/L (7-15); Blood Urea Nitrogen* 31 mg/dL (7-30); Calcium* 8.5 mg/dL (8.4-10.6); Carbon Dioxide* 27 mmol/L (20-32); Creatinine* 0.6 mg/dL (0.5-1.5); Estimated Glomerular Filt Rate 87 ml/min; Glucose* 204 mg/dL (60-115)
--- NOTE | 2024-04-16 03:01 | W.PM.TELEH&P ---
Telehealth- H&P: HPI History of Present Illness Date Seen: 04/16/24 Chief complaint: Shortness of Breath Narrative: Linda Cruz is seen as an Interactive Telehealth visit. 88-year-old female who presents to hospital with complaints of weakness. She is brought to the emergency room as she lives in a care facility when she was noted that she was increasingly hypoxic although she denies any shortness of breath. In the emergency room, she underwent chest x-ray which showed bilateral pulmonary edema. She was noted to have hypoxia on room air. She was noted to have pedal edema. She was administered IV Lasix. Patient was recently presented to the emergency room a few weeks prior due to unwitnessed fall. At that time she was noted to be a poor historian. She was complaining of back pain. She was found to be in atrial fibrillation with rapid ventricular rate. She also had episodes of hypotension. At that time they were concerned that this patient was not safe to go home/with her junior estimator. Patient was admitted to the hospital and apparently was treated for pneumonia. Review of Systems Status of ROS: Reports: unobtainable due to mental status Narrative: Patient is noted to be very sleepy and unable to/unwilling to stay awake during interview [facility] Medical History (Updated 04/15/24 @ 19:39 by Jose Antonio Barnes MD) Frail elderly ?R54 - Age-related physical debility (ICD-10) Fall ?W19.XXXA - Unspecified fall, initial encounter (ICD-10) Weakness ?R53.1 - Weakness (ICD-10) Hyponatremia ?E87.1 - Hypo-osmolality and hyponatremia (ICD-10) Normocytic anemia ?D64.9 - Anemia, unspecified (ICD-10) Generalized anxiety disorder ?F41.1 - Generalized anxiety disorder (ICD-10) Hypertension ?I10 - Essential (primary) hypertension (ICD-10) Ulcerative colitis ?K51.90 - Ulcerative colitis, unspecified, without complications (ICD-10) Atrial fibrillation ?I48.91 - Unspecified atrial fibrillation (ICD-10) Surgical History (Updated 04/06/24 @ 00:01 by Baron Fong) 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 She lives on the top floor having to walk up a whole flight of stairs to get to where she lives. She has a female housemate who lives on the lower level. She is originally from [place] and moved to the [facility] about 40 years ago. She is now planning to move back to [place] with her family. Her healthcare power of commercial litigation attorney is Robinson Rogers, her roommate and friend. Code status is full. She does not smoke and she does not drink. What is your current living situation?: I presently have a place to live Problems where you live: no known problems Problems where you live details: none known In the past 12 months, utilities in danger of being shut off: no In past 12 months, lack of transportation kept you from medical appts, meetings, work, or getting things needed for daily living: no In the past 12 mos, have been you worried that your food would run out before you had money to buy more?: never true In the past 12 mos, the food you bought just didn't last and you didn't have money to buy more?: never true Highest level of school completed/degree received: high school graduate Smoking Status: Former smoker What tobacco products do you use: cigarettes Smoking quit date/years: >15 years ago Do you use any of these nicotine containing products: None Second hand tobacco smoke exposure: No How often do you have a drink containing alcohol: never AUDIT-C Alcohol total score: 0 Non-prescribed substance use: denies use Caffeine: Yes How often does anyone, including family, friends and others, physically hurt you: never How often does anyone, including family, friends and others, insult or talk down to you: never How often does anyone, including family, friends and others, threaten you with harm: never How often does anyone, including family, friends and others, scream or curse at you: never service: No Meds Home Medications and Allergies Home Medications ?Medication ?Instructions ?Recorded ?Confirmed ?Type acetaminophen 325 mg tablet 650 mg PO TID 03/29/24 03/29/24 History cholecalciferol (vitamin D3) 50 50 mcg PO DAILY 03/29/24 03/29/24 History mcg (2,000 unit) capsule ferrous sulfate 325 mg (65 mg 325 mg PO DAILY 03/29/24 03/29/24 History iron) tablet,delayed release magnesium gluconate 27 mg 27 mg PO BID 03/29/24 03/29/24 History magnesium (500 mg) tablet sennosides 8.6 mg tablet (senna) 8.6 mg PO HS 03/29/24 03/29/24 History Allergies Allergy/AdvReac Type Severity Reaction Status Date / Time No Known Drug Allergies Allergy Verified 02/27/24 10:51 Exam Narrative Exam Narrative: Physical Exam GENERAL: ?vital signs reviewed, well developed and nourished, in no distress HEENT: pupils are equal round and reactive to light, oral mucosa is moist. NECK: Supple without lymphadenopathy or thyromegaly according to nursing staff examination observation HEART: Regular rate and irregular rhythm LUNGS: Crackles on exam bilaterally ABDOMEN: Observation from nurse assisted exam, abdomen appears soft, nontender, and nondistended with Positive bowel sounds noted. EXTREMITIES: + 2 pitting edema SKIN:? Observed warm and dry with color normal Const Vital Signs, click to edit/add: Vital Signs - 24 hr 04/15/24 18:57 04/15/24 19:06 04/15/24 19:15 Temperature 97.9 F Pulse Rate 107 H 100 Pulse Rate [Right Pulse Oximeter] 101 H Respiratory Rate 18 Blood Pressure Blood Pressure [Right Arm] Blood Pressure [Right Upper Arm] 100/81 Pulse Oximetry 93 93 93 Oxygen Delivery Method Room Air Oxygen Flow Rate 04/15/24 19:24 04/15/24 19:30 04/15/24 19:31 Temperature Pulse Rate 98 102 H 108 H Pulse Rate [Right Pulse Oximeter] Respiratory Rate 22 22 Blood Pressure 113/68 120/66 Blood Pressure [Right Arm] Blood Pressure [Right Upper Arm] Pulse Oximetry 90 94 93 Oxygen Delivery Method Oxygen Flow Rate 04/15/24 19:45 04/15/24 20:00 04/15/24 20:02 Temperature Pulse Rate 109 H 100 103 H Pulse Rate [Right Pulse Oximeter] Respiratory Rate 20 Blood Pressure 128/67 Blood Pressure [Right Arm] Blood Pressure [Right Upper Arm] Pulse Oximetry 89 90 94 Oxygen Delivery Method Oxygen Flow Rate 04/15/24 20:15 04/15/24 20:30 04/15/24 20:32 Temperature Pulse Rate 101 H 110 H 102 H Pulse Rate [Right Pulse Oximeter] Respiratory Rate 20 Blood Pressure 98/65 Blood Pressure [Right Arm] Blood Pressure [Right Upper Arm] Pulse Oximetry 92 91 92 Oxygen Delivery Method Oxygen Flow Rate 04/15/24 20:45 04/15/24 21:00 04/15/24 21:02 Temperature Pulse Rate 111 H 112 H 102 H Pulse Rate [Right Pulse Oximeter] Respiratory Rate Blood Pressure Blood Pressure [Right Arm] Blood Pressure [Right Upper Arm] Pulse Oximetry 79 L 89 91 Oxygen Delivery Method Oxygen Flow Rate 04/15/24 21:10 04/15/24 21:15 04/15/24 22:02 Temperature Pulse Rate 100 118 H Pulse Rate [Right Pulse Oximeter] 121 H Respiratory Rate 20 20 Blood Pressure 105/87 Blood Pressure [Right Arm] Blood Pressure [Right Upper Arm] 120/62 Pulse Oximetry 87 L 88 93 Oxygen Delivery Method Nasal Cannula Oxygen Flow Rate 04/15/24 22:24 04/15/24 22:25 04/15/24 22:30 Temperature Pulse Rate 122 H 111 H 118 H Pulse Rate [Right Pulse Oximeter] Respiratory Rate Blood Pressure 146/83 H Blood Pressure [Right Arm] Blood Pressure [Right Upper Arm] Pulse Oximetry 91 90 90 Oxygen Delivery Method Oxygen Flow Rate 04/15/24 22:32 04/15/24 22:32 04/15/24 22:45 Temperature Pulse Rate 101 H Pulse Rate [Right Pulse Oximeter] Respiratory Rate Blood Pressure 132/95 H Blood Pressure [Right Arm] Blood Pressure [Right Upper Arm] Pulse Oximetry 91 Oxygen Delivery Method Nasal Cannula Nasal Cannula Oxygen Flow Rate 2 1 04/15/24 23:00 04/15/24 23:02 04/15/24 23:31 Temperature Pulse Rate 108 H 122 H 120 H Pulse Rate [Right Pulse Oximeter] Respiratory Rate Blood Pressure 140/122 H Blood Pressure [Right Arm] Blood Pressure [Right Upper Arm] Pulse Oximetry 94 95 90 Oxygen Delivery Method Oxygen Flow Rate 04/15/24 23:45 04/16/24 00:00 04/16/24 00:02 Temperature Pulse Rate 108 H 112 H Pulse Rate [Right Pulse Oximeter] Respiratory Rate 20 Blood Pressure 129/106 H Blood Pressure [Right Arm] Blood Pressure [Right Upper Arm] Pulse Oximetry 91 91 Oxygen Delivery Method Room Air Oxygen Flow Rate 04/16/24 00:02 04/16/24 00:02 04/16/24 00:03 Temperature Pulse Rate 112 H 112 H 102 H Pulse Rate [Right Pulse Oximeter] Respiratory Rate Blood Pressure 129/106 H 129/106 H Blood Pressure [Right Arm] Blood Pressure [Right Upper Arm] Pulse Oximetry 91 91 92 Oxygen Delivery Method Oxygen Flow Rate 04/16/24 00:05 04/16/24 00:30 04/16/24 00:32 Temperature Pulse Rate 94 97 Pulse Rate [Right Pulse Oximeter] Respiratory Rate Blood Pressure 114/77 Blood Pressure [Right Arm] Blood Pressure [Right Upper Arm] Pulse Oximetry 95 95 Oxygen Delivery Method Nasal Cannula Oxygen Flow Rate 1 04/16/24 01:07 04/16/24 01:07 Temperature 97.9 F Pulse Rate Pulse Rate [Right Pulse Oximeter] 93 Respiratory Rate 20 20 Blood Pressure Blood Pressure [Right Arm] 135/97 H Blood Pressure [Right Upper Arm] Pulse Oximetry 95 95 Oxygen Delivery Method Nasal Cannula Nasal Cannula Oxygen Flow Rate 1 1 Hospitalist - H&P: Result Labs Labs: Short CBC 04/16/24 Range/Units 00:20 WBC 15.84 H (4.50-11.00) K/uL Hgb 8.8 L (12.0-16.0) gm/dL Hct 28.7 L (33.0-51.0) % Plt Count 461 H (140-440) K/uL BMP 04/16/24 00:20 Sodium 129 L Potassium 4.8 Chloride 96 Carbon Dioxide 27 BUN 31 H Creatinine 0.6 Glucose 204 H Calcium 8.5 Assessment and Plan Assessment and plan (1) CHF (congestive heart failure): Status: Acute (2) Atrial fibrillation: Status: Acute (3) Fall: Status: Acute (4) Sacral decubitus ulcer, stage III: Problem comment: - with surrounding cellulitis, wound culture reveals small amount of coag - staph + strep - Vancomycin (03/29/24) --> Cefazolin 03/30 --> Cephalexin 03/31 - wound care visit 04/01/24, recommendations in d/c instructions Status: Acute Plan Assessment and plan Acute on chronic diastolic CHF in a patient with known atrial fibrillation: My suspicion is that this patient's atrial fibrillation rate has been uncontrolled 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 Patient denies any chest pain. I think the most important thing will be to have her aggressively diuresed. Once she is aggressively diuresed I think rate control will be much easier. She appears to be significantly fluid overloaded. Atrial fibrillation with rapid ventricular rate: Patient's heart rate has been fluctuating throughout the day. Most the time she is rate controlled but then at times she is not. Will place her on telemetry. Echocardiogram ordered. Will continue her home medication of metoprolol tartrate 50 mg twice daily and start as needed Lopressor IV. If this patient's heart rate is difficult to manage, I would consider digoxin. 125 mg daily for 3 days then every other day. On anticoagulation Eliquis Acute metabolic encephalopathy: Unclear if this is from baseline for this is worse from baseline. But I do not think I need to provide any sedative medication as she is very drowsy. Hypoxia likely secondary to pulmonary edema. GERD omeprazole History of constipation MiraLAX Telehealth Visit Today's History and Physical is provided via interactive telehealth by Dr. Gilmer Sam MD. Patient is located at [facility]. Provider is located at [facility]. Nursing staff assisted with the patient's examination. The visit being done today meets criteria for a telehealth visit and the patient or patient's parent and/or gaurdian is aware the visit is a telehealth visit. Camera Start Time 3:15 AM Camera End Time 3:30 AM Telehealth: Statement Statement Telehealth Visit: Today's History and Physical is provided via interactive telehealth by Gilmer Sam MD.? Patient is located at [facility].? Provider is located at [facility].? Nursing staff assisted with the patient's exam. The visit being done today meets criteria for a telehealth visit and the patient or patient?s parent/guardian is aware the visit is a telehealth visit.
[2024-04-16] MEDS: FUROSEMIDE 10 MG/ML inj 20 MG IVP ×2 (05:17→08:48)
[2024-04-16] MEDS: OMEPRAZOLE 20 MG CAPSULE DR 40 MG PO (06:03)
--- NOTE | 2024-04-16 06:32 | PC.NURSE ---
ADMISSION NOTE: Pt pleasant, alert and oriented to self only. Denies pain. Has SOB upon exertion, on 1L O2 with oxygen saturations in the low 90's. Non productive moist cough. Up SBA with a walker and tolerates well. Denies N/V and CP. ECHO planned for today. Tele reads a-fib, 80's to low 100's overnight.
[2024-04-16] MEDS: APIXABAN 5 MG TABLET 2.5 MG PO ×2 (08:47→20:57)
[2024-04-16] MEDS: METOPROLOL TARTRATE 50 MG TABLET PO (08:47)
[2024-04-16] MEDS: FERROUS SULFATE 325 MG TABLET PO (08:47)
[2024-04-16] MEDS: ACETAMINOPHEN 325 MG TABLET 650 MG PO ×3 (08:47→20:56)
[2024-04-16] MEDS: SODIUM CHLORIDE 0.9 % (FLUSH) 10 ML SYRINGE 5 ML IVF ×2 (08:48→20:57)
--- NOTE | 2024-04-16 09:07 | PM.IMPN1 ---
Progress Note: A&P Assessment and plan (1) CHF (congestive heart failure): Problem details: - concern for this given acute hypoxic respiratory failure on admission - TTE ordered for 04/16 to evaluate, plan and medication management pending results - diuresing on Lasix Status: Acute (2) Atrial fibrillation: Problem details: - in RVR upon ER visit, HR improved 04/16 but still 90-105 - anticoagulated on Eliquis - 04/16: increased Metoprolol from 50mg BID --> 75mg BID Status: Acute (3) Community acquired pneumonia: Problem details: - noted on 04/15 imaging - Ceftriaxone and Azithromycin (04/16) Status: Acute (4) Sacral decubitus ulcer, stage III: Problem details: - followed by Wound Care, no evidence of acute infection when discharged from here late March Status: Acute (5) Hyponatremia: Problem details: - history of Na as low as 124 in January 2024, current Na of 129, asymptomatic - continue thrice daily oral supplementation, encourage protein intake Status: Acute Plan - per above - await TTE results - offered to call and update any friends or family members, patient declined Subjective Date Seen: 04/16/24 Interval history: Linda Herrera) was admitted last night for acute hypoxic respiratory failure (oxygen saturation as low as 79% in ER), concern for PNA on imaging, and new LE edema, concerning for CHF. Since admission, she has diuresed well and has been able to titrate off of supplemental oxygen to room air. She has know atrial fibrillation, HR as high as 120 in the Emergency Room. This morning her HR is in the 90s. On Ceftriaxone and Azithromycin for presumed community acquired PNA. Has been on IV Furosemide since admission. TTE ordered for today to assess LVEF. She denies CP or dyspnea today, no concerns for hospitalist team. Exam Narrative: Exam Narrative: GEN: Alert and oriented, sitting comfortably in bedside chair HEENT: EOMIs bilaterally, no scleral icterus CV: Atrial fibrillation, rate in the 90s R: Bibasilar crackles, no wheezing Ext: 2-3+ pitting edema BLE Neuro: No focal deficits on limited exam Psych: Appropriate Const: Vital Signs, click to edit/add: Vital Signs - 24 hr 04/15/24 18:57 04/15/24 19:06 04/15/24 19:15 Temperature 97.9 F Pulse Rate 107 H 100 Pulse Rate [Right Pulse Oximeter] 101 H Respiratory Rate 18 Blood Pressure Blood Pressure [Le ft Arm] Blood Pressure [Ri ght Arm] Blood Pressure [Ri ght Upper Arm] 100/81 Pulse Oximetry 93 93 93 Oxygen Delivery Me thod Room Air Oxygen Flow Rate 04/15/24 19:24 04/15/24 19:30 04/15/24 19:31 Temperature Pulse Rate 98 102 H 108 H Pulse Rate [Right Pulse Oximeter] Respiratory Rate 22 22 Blood Pressure 113/68 120/66 Blood Pressure [Le ft Arm] Blood Pressure [Ri ght Arm] Blood Pressure [Ri ght Upper Arm] Pulse Oximetry 90 94 93 Oxygen Delivery Me thod Oxygen Flow Rate 04/15/24 19:45 04/15/24 20:00 04/15/24 20:02 Temperature Pulse Rate 109 H 100 103 H Pulse Rate [Right Pulse Oximeter] Respiratory Rate 20 Blood Pressure 128/67 Blood Pressure [Le ft Arm] Blood Pressure [Ri ght Arm] Blood Pressure [Ri ght Upper Arm] Pulse Oximetry 89 90 94 Oxygen Delivery Me thod Oxygen Flow Rate 04/15/24 20:15 04/15/24 20:30 04/15/24 20:32 Temperature Pulse Rate 101 H 110 H 102 H Pulse Rate [Right Pulse Oximeter] Respiratory Rate 20 Blood Pressure 98/65 Blood Pressure [Le ft Arm] Blood Pressure [Ri ght Arm] Blood Pressure [Ri ght Upper Arm] Pulse Oximetry 92 91 92 Oxygen Delivery Me thod Oxygen Flow Rate 04/15/24 20:45 04/15/24 21:00 04/15/24 21:02 Temperature Pulse Rate 111 H 112 H 102 H Pulse Rate [Right Pulse Oximeter] Respiratory Rate Blood Pressure Blood Pressure [Le ft Arm] Blood Pressure [Ri ght Arm] Blood Pressure [Ri ght Upper Arm] Pulse Oximetry 79 L 89 91 Oxygen Delivery Me thod Oxygen Flow Rate 04/15/24 21:10 04/15/24 21:15 04/15/24 22:02 Temperature Pulse Rate 100 118 H Pulse Rate [Right Pulse Oximeter] 121 H Respiratory Rate 20 20 Blood Pressure 105/87 Blood Pressure [Le ft Arm] Blood Pressure [Ri ght Arm] Blood Pressure [Ri ght Upper Arm] 120/62 Pulse Oximetry 87 L 88 93 Oxygen Delivery Me thod Nasal Cannula Oxygen Flow Rate 04/15/24 22:24 04/15/24 22:25 04/15/24 22:30 Temperature Pulse Rate 122 H 111 H 118 H Pulse Rate [Right Pulse Oximeter] Respiratory Rate Blood Pressure 146/83 H Blood Pressure [Le ft Arm] Blood Pressure [Ri ght Arm] Blood Pressure [Ri ght Upper Arm] Pulse Oximetry 91 90 90 Oxygen Delivery Me thod Oxygen Flow Rate 04/15/24 22:32 04/15/24 22:32 04/15/24 22:45 Temperature Pulse Rate 101 H Pulse Rate [Right Pulse Oximeter] Respiratory Rate Blood Pressure 132/95 H Blood Pressure [Le ft Arm] Blood Pressure [Ri ght Arm] Blood Pressure [Ri ght Upper Arm] Pulse Oximetry 91 Oxygen Delivery Me thod Nasal Cannula Nasal Cannula Oxygen Flow Rate 2 1 04/15/24 23:00 04/15/24 23:02 04/15/24 23:31 Temperature Pulse Rate 108 H 122 H 120 H Pulse Rate [Right Pulse Oximeter] Respiratory Rate Blood Pressure 140/122 H Blood Pressure [Le ft Arm] Blood Pressure [Ri ght Arm] Blood Pressure [Ri ght Upper Arm] Pulse Oximetry 94 95 90 Oxygen Delivery Me thod Oxygen Flow Rate 04/15/24 23:45 04/16/24 00:00 04/16/24 00:02 Temperature Pulse Rate 108 H 112 H Pulse Rate [Right Pulse Oximeter] Respiratory Rate 20 Blood Pressure 129/106 H Blood Pressure [Le ft Arm] Blood Pressure [Ri ght Arm] Blood Pressure [Ri ght Upper Arm] Pulse Oximetry 91 91 Oxygen Delivery Me thod Room Air Oxygen Flow Rate 04/16/24 00:02 04/16/24 00:02 04/16/24 00:03 Temperature Pulse Rate 112 H 112 H 102 H Pulse Rate [Right Pulse Oximeter] Respiratory Rate Blood Pressure 129/106 H 129/106 H Blood Pressure [Le ft Arm] Blood Pressure [Ri ght Arm] Blood Pressure [Ri ght Upper Arm] Pulse Oximetry 91 91 92 Oxygen Delivery Me thod Oxygen Flow Rate 04/16/24 00:05 04/16/24 00:30 04/16/24 00:32 Temperature Pulse Rate 94 97 Pulse Rate [Right Pulse Oximeter] Respiratory Rate Blood Pressure 114/77 Blood Pressure [Le ft Arm] Blood Pressure [Ri ght Arm] Blood Pressure [Ri ght Upper Arm] Pulse Oximetry 95 95 Oxygen Delivery Me thod Nasal Cannula Oxygen Flow Rate 1 04/16/24 01:07 04/16/24 01:07 04/16/24 03:00 Temperature 97.9 F Pulse Rate 83 Pulse Rate [Right Pulse Oximeter] 93 Respiratory Rate 20 20 Blood Pressure Blood Pressure [Le ft Arm] Blood Pressure [Ri ght Arm] 135/97 H Blood Pressure [Ri ght Upper Arm] Pulse Oximetry 95 95 Oxygen Delivery Me thod Nasal Cannula Nasal Cannula Oxygen Flow Rate 1 1 04/16/24 07:59 04/16/24 07:59 Temperature 97.2 F L Pulse Rate Pulse Rate [Right Pulse Oximeter] 88 Respiratory Rate 20 Blood Pressure Blood Pressure [Le ft Arm] 136/56 L 136/56 L Blood Pressure [Ri ght Arm] Blood Pressure [Ri ght Upper Arm] Pulse Oximetry 93 Oxygen Delivery Me thod Room Air Oxygen Flow Rate Labs Labs: Laboratory Results - last 24 hr 04/16/24 04/16/24 00:03 00:20 WBC 15.84 H RBC 2.94 L Hgb 8.8 L Hct 28.7 L MCV 98 MCH 30 MCHC 31 L RDW Coeff of Cel[place] 15.5 Plt Count 461 H Neut % (Auto) 96.0 H Lymph % (Auto) 2.1 L Smith % (Auto) 1.5 Eos % (Auto) 0.0 Baso % (Auto) 0.1 Neut # (Auto) 15.20 H Lymph # (Auto) 0.30 L Smith # (Auto) 0.20 Eos # (Auto) 0.00 Baso # (Auto) 0.00 Abs Immat Gran (auto) 0.00 Imm/Tot Granulo (auto) 0.3 Sodium 129 L Potassium 4.8 Chloride 96 Carbon Dioxide 27 Anion Gap 6 L BUN 31 H Creatinine 0.6 Estimated GFR 87 Glucose 204 H Calcium 8.5 POC Troponin I 0.02
[2024-04-16] MEDS: POTASSIUM BICARB 25 MEQ EFFERVESCENT TAB PO (09:48)
[2024-04-16] MEDS: AZITHROMYCIN 250 MG TABLET 500 MG PO (09:48)
[2024-04-16] MEDS: METOPROLOL TARTRATE 50 MG TABLET 75 MG PO ×2 (09:49→20:57)
[2024-04-16] MEDS: cefTRIAXone 1 GM in 0.9 % SODIUM CHLORIDE Mini-bag 100 ML IVPB (09:49)
[2024-04-16] MEDS: SODIUM CHLORIDE 1 GM TABLET PO ×2 (13:02→18:46)
[2024-04-16] MEDS: FUROSEMIDE 40 MG TABLET 20 MG PO (14:23)
[2024-04-16] MEDS: SENNOSIDES 1 TAB TABLET PO (20:56)
[2024-04-16] MEDS: MELATONIN 3 MG TABLET PO (20:56)
[2024-04-17] VITALS (7 sets, daily range): BP systolic 115–168; BP diastolic 66–103; PULSE 73–102; RESP 19–26; TEMP 36.4–36.6; O2SAT 88–94
--- NOTE | 2024-04-17 05:57 | PC.NURSE ---
End of shift report [id number]: Alert and oriented to self and birthdate, intermittent confusion to time and place. Denies any pain. SOB reported with exertion, relieved with rest. O2 sats >90% on room air. Lung sounds with fine crackles in bases with expiratory wheeze in upper lobes. Audible congestion while breathing. Intermittent, non productive cough. BLE 3+ pitting edema. Patient impulsive and does not utilize call light appropriately, bed alarm on and patient up seven times to use bathroom, patient void small amounts of clear pale yellow urine, bm x 2 and patient incontinent x 1 of stool. External hemorrhoid with scant amount of bleeding, assisted with wiping patient after stool and cream applied to bottom. Sacral mepilx intact.
[2024-04-17 06:31] LABS: HCO3 VBG 32 mmol/L (21-28); PCO2 VBG 47 mmHG (40-50); PO2 VBG < 30.1 mmHG (25-47); pH VBG 7.448 (7.32-7.43)
[2024-04-17 06:41] LABS: Eosinophils Percent Auto 0.2 % (0.0-7.0); Hematocrit 29.1 % (33.0-51.0); Immature Granulocytes Pct Auto 0.5 %; Lymphocytes Percent Auto 10.2 % (20-44); Mean Corpuscular HGB Conc 31 gm/dL (32-36); Mean Corpuscular Hemoglobin 30 pg (26-34); Mean Corpuscular Volume 97 fL (80-100); Monocytes Percent Auto 6.2 % (0.0-11.0); Neutrophils Percent Auto 82.9 % (42.0-72.0); Platelet Count* 482 K/uL (140-440); RDW Coefficient of Variation % 15.5 % (11.5-15.5); White Blood Count* 13.96 K/uL (4.50-11.00)
[2024-04-17 06:43] LABS: Slide Review Reflex No
[2024-04-17 06:57] LABS: Chloride* 94 mmol/L (96-114); Potassium* 4.5 mmol/L (3.6-5.1); Sodium* 132 mmol/L (135-149)
[2024-04-17 07:00] LABS: Anion Gap 6 mEq/L (7-15); Blood Urea Nitrogen* 32 mg/dL (7-30); Calcium* 8.8 mg/dL (8.4-10.6); Carbon Dioxide* 32 mmol/L (20-32); Creatinine* 0.6 mg/dL (0.5-1.5); Est. Creatinine Clearance* 30.47; Estimated Glomerular Filt Rate 87 ml/min; Glucose* 153 mg/dL (60-115)
[2024-04-17] MEDS: METOPROLOL TARTRATE 50 MG TABLET 75 MG PO ×2 (08:08→21:04)
[2024-04-17] MEDS: SODIUM CHLORIDE 1 GM TABLET PO ×3 (08:08→17:53)
[2024-04-17] MEDS: FERROUS SULFATE 325 MG TABLET PO (08:08)
[2024-04-17] MEDS: APIXABAN 5 MG TABLET 2.5 MG PO ×2 (08:08→21:04)
[2024-04-17] MEDS: FUROSEMIDE 40 MG TABLET 20 MG PO (08:09)
[2024-04-17] MEDS: SODIUM CHLORIDE 0.9 % (FLUSH) 10 ML SYRINGE 5 ML IVF ×2 (08:09→21:05)
--- NOTE | 2024-04-17 08:20 | PM.IMPN1 ---
Progress Note: A&P Assessment and plan (1) Acute hypoxic respiratory failure: Problem details: - oxygen saturation as low as 79% in the ER, likely combination of community acquired PNA, CHF exacerbation, and a fib with RVR - need for supplemental oxygen has decreased as patient has diuresed - continue antibiotics, diuresis, rate control for a fib (increased dose of Metoprolol as of 04/16) Status: Acute (2) Diastolic congestive heart failure with preserved left ventricular function, NYHA class 2: Problem details: - TTE from 04/16 below - on Lasix for diuresis, will add low dose Spironolactone 04/17 and monitor Na closely - awaiting UA to evaluate for proteinuria, LFTs mildly elevated Final Impressions: 1. Normal LV size, borderline wall thickness, mildly reduced global systolic function with an estimated EF of 60 - 65%. 2. Moderately enlarged left atrium. 3. Grade 2 pattern of LV diastolic filling. 4. The aortic valve is sclerotic, no stenosis and no regurgitation. 5. Mild-moderate tricuspid regurgitation. 6. Increased left atrial pressure. 7. Since the echo from 01/30, the RVSP has mildly decreased from 35 to 29 mmHg + a normal RAP. Status: Acute (3) Atrial fibrillation: Problem details: - in RVR upon ER visit, HR improved 04/16 but still 90-105 - anticoagulated on Eliquis - 04/16: increased Metoprolol from 50mg BID --> 75mg BID, HR 70-90s Status: Acute (4) Community acquired pneumonia: Problem details: - noted on 04/15 imaging, stable repeat CXR 04/16 - Ceftriaxone and Azithromycin (04/16) Status: Acute (5) Sacral decubitus ulcer, stage III: Problem details: - followed by Wound Care, no evidence of acute infection when discharged from here late March Status: Acute (6) Hyponatremia: Problem details: - history of Na as low as 124 in January 2024, current Na of 129, asymptomatic - continue thrice daily oral supplementation, encourage protein intake - monitor closely given initiation of Spironolactone 04/17 Status: Acute (7) Normocytic anemia: Problem details: - no evidence of acute bleeding, no gastritis - mildly elevated BUN (30s) - current Hgb stable at 9.0, continue to follow (per chart review, baseline Hgb has been 9-11 since January 2024) Status: Acute (8) Frail elderly: Problem details: - working with therapies, will need SNF upon discharge Status: Acute Plan - per above - continue diuresis, monitor electrolytes and oxygen saturations - to SNF when medically stable, likely 2-3 more days Subjective Date Seen: 04/17/24 Interval history: Linda Herrera) was admitted last night for acute hypoxic respiratory failure (oxygen saturation as low as 79% in ER), concern for PNA on imaging, and new LE edema (concerning for CHF). Since admission, diuresed well with IV Furosemide and has been able to titrate off of supplemental oxygen to room air. CXR in ED concerning for L mid lung infiltrate with WBC of 15; on Ceftriaxone and Azithromycin for presumed community acquired PNA. She has know atrial fibrillation; was in RVR upon arrival (HR as high as 120 in the ED). Home dose of Metoprolol increased and she remains in rate controlled atrial fibrillation (HR 80-90s). TTE obtained 04/16, exhibiting HFpEF and diastolic dysfunction. Notes dyspnea during therapies, none at rest. No concerns for hospitalist team this morning. Exam Narrative: Exam Narrative: GEN: Alert and sitting in bedside chair, eating breakfast HEENT: EOMIs bilaterally, no scleral icterus CV: Irregularly irregular, rate 90s R: No dyspnea at rest or while talking. Bibasilar crackles, expiratory rhonchi bilateral apices Ext: 2-3+ pitting edema BLE up to knees, improved from yesterday's exam Skin: Sacral wound not formally examined today. No concerning skin lesions or rashes on exposed skin Neuro: No focal deficits on limited exam, no resting tremor Psych: Appropriate Const: Vital Signs, click to edit/add: Vital Signs - 24 hr 04/16/24 09:33 04/16/24 11:55 04/16/24 15:00 Temperature 97.9 F Pulse Rate 92 79 Pulse Rate [Right Pulse Oximeter] 80 Respiratory Rate 18 Blood Pressure [Le ft Arm] 129/54 L Blood Pressure [Ri ght Arm] Pulse Oximetry 92 Oxygen Delivery Me thod Room Air 04/16/24 15:00 04/16/24 15:00 04/16/24 19:00 Temperature 97.8 F 97.5 F L Pulse Rate Pulse Rate [Right Pulse Oximeter] 78 78 81 Respiratory Rate 18 18 20 Blood Pressure [Le ft Arm] Blood Pressure [Ri ght Arm] 135/65 130/54 L Pulse Oximetry 91 92 Oxygen Delivery Me thod Room Air Room Air 04/16/24 22:07 04/16/24 22:41 04/16/24 23:00 Temperature 97.8 F Pulse Rate 80 Pulse Rate [Right Pulse Oximeter] 86 86 Respiratory Rate 18 18 Blood Pressure [Le ft Arm] 125/95 H Blood Pressure [Ri ght Arm] Pulse Oximetry 90 Oxygen Delivery Me thod Room Air 04/17/24 03:00 04/17/24 08:04 Temperature 97.8 F 97.8 F Pulse Rate Pulse Rate [Right Pulse Oximeter] 102 H 95 Respiratory Rate 22 19 Blood Pressure [Le ft Arm] Blood Pressure [Ri ght Arm] 148/94 H 168/90 H Pulse Oximetry 90 88 Oxygen Delivery Me thod Room Air Room Air Labs Labs: Laboratory Results - last 24 hr 04/16/24 04/16/24 04/17/24 00:20 10:25 06:24 WBC 13.96 H RBC 3.00 L Hgb 9.0 L Hct 29.1 L MCV 97 MCH 30 MCHC 31 L RDW Coeff of Celina 15.5 Plt Count 482 H Neut % (Auto) 82.9 H Lymph % (Auto) 10.2 L [place] % (Auto) 6.2 Eos % (Auto) 0.2 Baso % (Auto) 0.0 Neut # (Auto) 11.60 H Lymph # (Auto) 1.40 [place] # (Auto) 0.90 Eos # (Auto) 0.00 Baso # (Auto) 0.00 Abs Immat Gran (auto) 0.10 Imm/Tot Granulo (auto) 0.5 VBG pH 7.448 H VBG pCO2 47 VBG pO2 < 30.1 VBG HCO3 32 H Sodium 132 L Potassium 4.5 Chloride 94 L Carbon Dioxide 32 Anion Gap 6 L BUN 32 H Creatinine 0.6 Estimated Creat Clear 30.47 Estimated GFR 87 Glucose 153 H Calcium 8.8 TSH 1.200 Lab Acknowledgement Test Added 04/17/24 08:09 WBC RBC Hgb Hct MCV MCH MCHC RDW Coeff of Celina Plt Count Neut % (Auto) Lymph % (Auto) [place] % (Auto) Eos % (Auto) Baso % (Auto) Neut # (Auto) Lymph # (Auto) [place] # (Auto) Eos # (Auto) Baso # (Auto) Abs Immat Gran (auto) Imm/Tot Granulo (auto) VBG pH VBG pCO2 VBG pO2 VBG HCO3 Sodium Potassium Chloride Carbon Dioxide Anion Gap BUN Creatinine Estimated Creat Clear Estimated GFR Glucose Calcium TSH Lab Acknowledgement Test Added
[2024-04-17 08:29] LABS: Albumin* 3.2 g/dL (3.3-5.0)
[2024-04-17 08:32] LABS: Alanine Aminotransferase* 42 U/L (4-35); Alkaline Phosphatase* 131 U/L (40-150); Aspartate Amino Transferase* 44 U/L (12-35); Bilirubin Direct* 0.1 mg/dL (0.0-0.5); Bilirubin Total* 0.2 mg/dL (0.1-1.5); Total Protein* 6.1 g/dL (6.0-8.3)
--- NOTE | 2024-04-17 09:26 | CRLHL7_ITS ---
For Patients: As a result of the Century Cures Act, medical imaging exams and procedure reports are released immediately into your electronic medical record. You may view this report before your referring provider. If you have questions, please contact your health care provider. INDICATION: Follow-up pneumonia TECHNIQUE: Chest 1 views. COMPARISON: Chest radiograph 04/16/2024 FINDINGS: Cardiovasculature and mediastinum: Cardiomegaly is stable. Unremarkable mediastinum. Lungs and pleural spaces: Decreased pulmonary edema. Redemonstration left midlung consolidation. No sign of pleural effusion. No pneumothorax. Bones and soft tissues: No significant findings. IMPRESSION: Similar appearance of left midlung consolidation, likely infectious. Decreased pulmonary edema. Dictated by Malorie Mai MD @ 04/17/2024 10:07:28 AM (Electronically Signed)
[2024-04-17 09:49] LABS: Appearance Urine Clear (Clear); Bilirubin Urine Negative (Negative); Blood Urine Trace-lysed (Negative); Color Urine Yellow (Yellow); Glucose Urine Negative (Negative); Ketones Urine Negative (Negative); Leukocyte Esterase Urine Negative (Negative); Nitrite Urine Negative (Negative); Protein Urine Trace (Negative); Urobilinogen Urine 0.2 (0.2-1.0)
[2024-04-17 10:02] LABS: RBC Urine 0-2 (0-2); WBC Urine 0-2 (0-5)
[2024-04-17] MEDS: cefTRIAXone 1 GM in 0.9 % SODIUM CHLORIDE Mini-bag 100 ML IVPB (10:03)
[2024-04-17] MEDS: AZITHROMYCIN 250 MG TABLET 500 MG PO (10:04)
[2024-04-17] MEDS: SPIRONOLACTONE 25 MG TABLET 12.5 MG PO (10:50)
[2024-04-17] MEDS: LACTOBACILLUS ACIDOPHILUS 1 TABLET 1 TAB PO ×2 (12:19→17:53)
--- NOTE | 2024-04-17 13:03 | PC.SOCIAL ---
Discharge planning: Met with pt and friend Nazia in room regarding d/c plan. Nazia shared she and other friends were not pleased with the care at [facility] and requested pt be discharged to [facility] if accepted. Pt stated she agreed with this plan. Called and [employer] emailed requested information for evaluation for admit. Discharge will most likely be on Monday04/19/24. food service utility worker to follow up as needed.
--- NOTE | 2024-04-17 15:01 | PC.NURSE ---
The patient is alert to self only. Pale and flat affect. VS on RA O2 stat noted @88%. No reports of pain. Ax1 w/ RW and GB the patient does not use the call light appropriately. Alarms are in place. The patients friend Nazia visited today. Bilateral wheezing upon auscultation. Intermittent coarse non productive cough. Aerobika and I/S educated and completed with the patient this shift. BM this shift. Call light within reach. Geovanna KOROMA BSN
--- NOTE | 2024-04-17 17:06 | PC.SOCIAL ---
Discharge planning: Pt has been accepted for admit to [facility] for rehab on Monday, arriving by noon. Met with pt who is pleased with this plan. Pt requested social work supervisor call friend, Nazia with update and regarding transportation. Called Nazia [phone] who is pleased with this plan. Nazia will pick pt up ion Monday at 11:00 to provide transportation to [facility]. bag worker to follow up as needed.
[2024-04-18] VITALS (9 sets, daily range): BP systolic 118–167; BP diastolic 58–85; PULSE 76–105; RESP 16–26; TEMP 35.9–37; O2SAT 84–94
[2024-04-18] MEDS: IPRAT-ALBUT 0.5-2.5 MG/3 ML NEB 1 NEB IH (01:10)
[2024-04-18] MEDS: FUROSEMIDE 10 MG/ML inj 40 MG IVP (01:10)
--- NOTE | 2024-04-18 06:07 | PC.NURSE ---
End of shift report [id number]: Patient oriented to self and date, intermittent confusion to place and time. Increased fatigue at start of shift. Denies any pain. At 2350 patient bed alarm triggered, patient found sitting on bedside. Tachypneic with respirations 26, patient taking shallow, short breaths and grunting. O2 sat 84% at that time, O2 placed at 1L per NC and increased to 88%. Lung sounds with expiratory wheezing in upper and mid lobe and coarse lung sounds in bases. Patient anxious and restless at that time. Call placed to [facility] and new orders for duonebs q4h PRN and one time dose of furosemide 40mg per IV. Lasix administered along with duoneb, patient reported moderate relief of dyspnea with nebulizer. Lung sounds assessed after administration and expiratory wheezing resolved but coarse lung sounds continue in base. Diuresed of 2600ml's of clear, pale yellow urine between 9583-1100. BLE 2+ pitting pitting edema from knee down through the foot, elevated lower extremities while in bed. Patient remained on O2 @ 1L per NC, sats ranging from 88-90% on O2, typewriters functional tester attempted to wean and dropped to 85%.
[2024-04-18 06:29] LABS: Basophils Percent Auto 0.1 % (0.0-3.0); Eosinophils Percent Auto 0.2 % (0.0-7.0); Hemoglobin* 9.3 gm/dL (12.0-16.0); Immature Granulocytes Pct Auto 0.3 %; Lymphocytes Percent Auto 15.2 % (20-44); Mean Corpuscular HGB Conc 31 gm/dL (32-36); Mean Corpuscular Hemoglobin 30 pg (26-34); Mean Corpuscular Volume 96 fL (80-100); Monocytes Percent Auto 7.2 % (0.0-11.0); Platelet Count* 470 K/uL (140-440); RDW Coefficient of Variation % 14.9 % (11.5-15.5); Red Blood Count 3.13 m/uL (4.00-5.20); White Blood Count* 12.23 K/uL (4.50-11.00)
[2024-04-18 06:33] LABS: Slide Review Reflex No
[2024-04-18 06:43] LABS: Albumin* 3.3 g/dL (3.3-5.0); Chloride* 90 mmol/L (96-114); Potassium* 3.9 mmol/L (3.6-5.1); Sodium* 132 mmol/L (135-149)
[2024-04-18 06:46] LABS: Alanine Aminotransferase* 45 U/L (4-35); Alkaline Phosphatase* 168 U/L (40-150); Anion Gap 8 mEq/L (7-15); Aspartate Amino Transferase* 39 U/L (12-35); Bilirubin Total* 0.2 mg/dL (0.1-1.5); Blood Urea Nitrogen* 22 mg/dL (7-30); Carbon Dioxide* 34 mmol/L (20-32); Creatinine* 0.5 mg/dL (0.5-1.5); Est. Creatinine Clearance* 30.47; Estimated Glomerular Filt Rate 91 ml/min; Glucose* 139 mg/dL (60-115); Total Protein* 6.2 g/dL (6.0-8.3)
[2024-04-18 06:47] LABS: Calcium* 8.7 mg/dL (8.4-10.6)
[2024-04-18] MEDS: SODIUM CHLORIDE 1 GM TABLET PO ×3 (07:42→18:37)
[2024-04-18] MEDS: LACTOBACILLUS ACIDOPHILUS 1 TABLET 1 TAB PO ×3 (07:42→18:37)
[2024-04-18] MEDS: OMEPRAZOLE 20 MG CAPSULE DR 40 MG PO (07:42)
--- NOTE | 2024-04-18 07:48 | PM.IMPN1 ---
Progress Note: A&P Assessment and plan (1) Acute hypoxic respiratory failure: Problem details: - oxygen saturation as low as 79% in the ER, likely combination of community acquired PNA, CHF exacerbation, and a fib with RVR - need for supplemental oxygen has decreased as patient has diuresed - continue antibiotics, diuresis, rate control for a fib (increased dose of Metoprolol as of 04/16) - 04/17 40mg lasix BID, aldactone 12.5mg daily. Still on IV ceftriaxone, has completed 3 doses of azithromycin. will transition to oral antibiotic (Vantin 200mg daily) Status: Acute (2) Diastolic congestive heart failure with preserved left ventricular function, NYHA class 2: Problem details: - TTE from 04/16 below - on Lasix for diuresis, will add low dose Spironolactone 04/17 and monitor Na closely - trace proteinuria, LFTs mildly elevated Final Impressions: 1. Normal LV size, borderline wall thickness, mildly reduced global systolic function with an estimated EF of 60 - 65%. 2. Moderately enlarged left atrium. 3. Grade 2 pattern of LV diastolic filling. 4. The aortic valve is sclerotic, no stenosis and no regurgitation. 5. Mild-moderate tricuspid regurgitation. 6. Increased left atrial pressure. 7. Since the echo from 01/30, the RVSP has mildly decreased from 35 to 29 mmHg + a normal RAP. Status: Acute (3) Atrial fibrillation: Problem details: - in RVR upon ER visit, HR improved 04/16 but still 90-105 - anticoagulated on Eliquis - 04/16: increased Metoprolol from 50mg BID --> 75mg BID, HR 70-90s Status: Acute (4) Community acquired pneumonia: Problem details: - noted on 04/15 imaging, stable repeat CXR 04/16 - Ceftriaxone and Azithromycin (04/16) - (04/19) oral Vantin 200mg daily (renally dosed) - total 1 week of antibiotics Status: Acute (5) Sacral decubitus ulcer, stage III: Problem details: - followed by Wound Care, no evidence of acute infection when discharged from here late March Status: Acute (6) Hyponatremia: Problem details: - history of Na as low as 124 in January 2024, current Na of 132, asymptomatic - continue thrice daily oral supplementation, encourage protein intake - monitor closely given initiation of Spironolactone 04/17 Status: Acute (7) Normocytic anemia: Problem details: - no evidence of acute bleeding, no gastritis - mildly elevated BUN (30s) - current Hgb stable at 9.3, continue to follow (per chart review, baseline Hgb has been 9-11 since January 2024) Status: Acute (8) Frail elderly: Problem details: - working with therapies, will need SNF upon discharge Status: Acute Subjective Date Seen: 04/18/24 Interval history: Daily Progress Note - Hospital Medicine #: 3 CC: hypoxic resp failure 24 HOUR UPDATE: She had a restless early evening. She became dyspneic and wheezy. She was given a DuoNeb in 40 mg of IV Lasix with a 2.5 L diuresis and this enabled her to rest later in the evening. Notable Labs, Micro, Rads, Interventions: Blood pressure has been elevated with a max systolic 167, diastolics anywhere from 66-103. She has remained afebrile Her pulse is less than 100. Her respiratory rate is stable. She sats without oxygen 84-88%, with 1 L she can sit easily between 90 and 94% Her weight was 53 kilos at admission and is down to 49.85 Previous weights seemed to range between 45 and 47 kilos. White blood cell count continues to downtrend. 12.23 today. Hemoglobin is stable. At 9.3 Sodium is stable at 132. Potassium is normal. Kidney function is stable. I reviewed the chest x-ray done on 04/17. This showed decreased pulmonary edema and the left mid lung consolidation. Negative MRSA Objective: Cachectic, flat affect Vitals: see above Lungs: Decreased air flow in the left lung, no wheezing, poor inspiratory effort Cardiac: S1S2. Disposition/Potential discharge - halfway facility Today I spent 50minutes seeing the patient, reviewing Expanse and EPIC notes/diagnostics, discussing the care plan with our care time that includes social work, PT/OT, pharmacy, RT, fpc and documenting my impressions and plan in the medical record. Exam Const: Vital Signs, click to edit/add: Vital Signs - 24 hr 04/17/24 08:04 04/17/24 10:55 04/17/24 15:00 Temperature 97.8 F 97.8 F Pulse Rate Pulse Rate [Right Pulse Oximeter] 95 94 Respiratory Rate 19 20 26 H Blood Pressure [Le ft Arm] 145/66 H 115/83 Blood Pressure [Ri ght Arm] 168/90 H Pulse Oximetry 88 88 Oxygen Delivery Me thod Room Air Room Air Oxygen Flow Rate 04/17/24 15:00 04/17/24 19:00 04/17/24 23:00 Temperature 97.7 F Pulse Rate 94 92 Pulse Rate [Right Pulse Oximeter] 102 H Respiratory Rate 22 Blood Pressure [Le ft Arm] 144/103 H Blood Pressure [Ri ght Arm] Pulse Oximetry 90 Oxygen Delivery Me thod Room Air Oxygen Flow Rate 04/17/24 23:00 04/17/24 23:00 04/18/24 00:00 Temperature 97.6 F Pulse Rate Pulse Rate [Right Pulse Oximeter] 92 92 Respiratory Rate 20 20 26 H Blood Pressure [Le ft Arm] 145/85 H Blood Pressure [Ri ght Arm] Pulse Oximetry 94 84 L Oxygen Delivery Me thod Room Air Oxygen Flow Rate 04/18/24 03:00 04/18/24 07:00 Temperature 97.5 F L Pulse Rate 77 Pulse Rate [Right Pulse Oximeter] 97 Respiratory Rate 20 Blood Pressure [Le ft Arm] 167/84 H Blood Pressure [Ri ght Arm] Pulse Oximetry 89 Oxygen Delivery Me thod Nasal Cannula Oxygen Flow Rate 1 Labs Labs: Laboratory Results - last 24 hr 04/17/24 04/17/24 04/17/24 06:24 08:09 09:38 WBC RBC Hgb Hct MCV MCH MCHC RDW Coeff of Celina Plt Count Neut % (Auto) Lymph % (Auto) [place] % (Auto) Eos % (Auto) Baso % (Auto) Neut # (Auto) Lymph # (Auto) [place] # (Auto) Eos # (Auto) Baso # (Auto) Abs Immat Gran (auto) Imm/Tot Granulo (auto) Sodium Potassium Chloride Carbon Dioxide Anion Gap BUN Creatinine Estimated Creat Clear Estimated GFR Glucose Calcium Total Bilirubin 0.2 Direct Bilirubin 0.1 AST 44 H ALT 42 H Alkaline Phosphatase 131 Total Protein 6.1 Albumin 3.2 L Urine Color Yellow Urine Appearance Clear Urine pH 7.0 Ur Specific Dexter 1.020 Urine Protein Trace A Urine Glucose (UA) Negative Urine Ketones Negative Urine Blood Trace-lysed A Urine Nitrite Negative Urine Bilirubin Negative Urine Urobilinogen 0.2 Ur Leukocyte Esterase Negative Urine RBC 0-2 Urine WBC 0-2 Ur Squamous Epith Cells None Urine Bacteria None Lab Acknowledgement Test Added 04/18/24 06:03 WBC 12.23 H RBC 3.13 L Hgb 9.3 L Hct 30.0 L MCV 96 MCH 30 MCHC 31 L RDW Coeff of Celina 14.9 Plt Count 470 H Neut % (Auto) 77.0 H Lymph % (Auto) 15.2 L [place] % (Auto) 7.2 Eos % (Auto) 0.2 Baso % (Auto) 0.1 Neut # (Auto) 9.40 H Lymph # (Auto) 1.90 [place] # (Auto) 0.90 Eos # (Auto) 0.00 Baso # (Auto) 0.00 Abs Immat Gran (auto) 0.00 Imm/Tot Granulo (auto) 0.3 Sodium 132 L Potassium 3.9 Chloride 90 L Carbon Dioxide 34 H Anion Gap 8 BUN 22 Creatinine 0.5 Estimated Creat Clear 30.47 Estimated GFR 91 Glucose 139 H Calcium 8.7 Total Bilirubin 0.2 Direct Bilirubin AST 39 H ALT 45 H Alkaline Phosphatase 168 H Total Protein 6.2 Albumin 3.3 Urine Color Urine Appearance Urine pH Ur Specific Dexter Urine Protein Urine Glucose (UA) Urine Ketones Urine Blood Urine Nitrite Urine Bilirubin Urine Urobilinogen Ur Leukocyte Esterase Urine RBC Urine WBC Ur Squamous Epith Cells Urine Bacteria Lab Acknowledgement
[2024-04-18] MEDS: cefTRIAXone 1 GM in 0.9 % SODIUM CHLORIDE Mini-bag 100 ML IVPB (09:19)
[2024-04-18] MEDS: FERROUS SULFATE 325 MG TABLET PO (09:25)
[2024-04-18] MEDS: AZITHROMYCIN 250 MG TABLET 500 MG PO (09:25)
[2024-04-18] MEDS: FUROSEMIDE 20 MG TABLET 40 MG PO ×2 (09:28→14:16)
[2024-04-18] MEDS: APIXABAN 5 MG TABLET 2.5 MG PO ×2 (09:28→20:05)
[2024-04-18] MEDS: SPIRONOLACTONE 25 MG TABLET 12.5 MG PO (09:28)
[2024-04-18] MEDS: METOPROLOL TARTRATE 50 MG TABLET 75 MG PO ×2 (09:29→20:05)
[2024-04-18] MEDS: SODIUM CHLORIDE 0.9 % (FLUSH) 10 ML SYRINGE 5 ML IVF ×2 (09:39→20:08)
--- NOTE | 2024-04-18 14:01 | PC.SOCIAL ---
Discharge planning: target worker completed PAS for discharge to [facility] tomorrow 04/19. Confirmation number: [id number]. target worker sent PAS confirmation to Teresita, from [facility], [email or web address].
--- NOTE | 2024-04-18 18:47 | PC.NURSE ---
Pt alert and oriented to self. Pt forgetful at times, impulsive and unable to use call light. IV inspected and intact. No pain stated throughout shift. O2 stats 88-90's throughout shift, pt on 1L of O2 now. Dressing on sacrum changed, mepilex with medihoney ointment on sacrum, clean dry and intact. Pt is incontinent. Repositioning throughout shift.
[2024-04-18] MEDS: SENNOSIDES 1 TAB TABLET PO (20:05)
[2024-04-19 02:49] VITALS: BP 141/76; PULSE 87; RESP 14; TEMP 36.5; O2SAT 93
--- NOTE | 2024-04-19 06:16 | PC.NURSE ---
End of shift [id number]: Pt AxOx4, calm, and cooperative. No pain expressed verbally with no nonverbal cues?throughout shift. Pt on 1L of O2. Dressing on sacrum CDI. Pt is incontinent of the bowels and bladder. Sheets changed. BM this AM in brief ? Moderate loose/soft. Pt appears resting with call light in reach. ? ?
[2024-04-19 06:28] LABS: Hematocrit 30.9 % (33.0-51.0); Hemoglobin* 9.7 gm/dL (12.0-16.0); Mean Corpuscular HGB Conc 31 gm/dL (32-36); Mean Corpuscular Hemoglobin 29 pg (26-34); Mean Corpuscular Volume 93 fL (80-100); Platelet Count* 474 K/uL (140-440); Red Blood Count 3.31 m/uL (4.00-5.20); White Blood Count* 12.14 K/uL (4.50-11.00)
[2024-04-19 06:30] LABS: Slide Review Reflex No
[2024-04-19] MEDS: OMEPRAZOLE 20 MG CAPSULE DR 40 MG PO (06:35)
[2024-04-19 06:46] LABS: Chloride* 87 mmol/L (96-114)
[2024-04-19 06:47] LABS: Albumin* 3.2 g/dL (3.3-5.0); Potassium* 3.1 mmol/L (3.6-5.1); Sodium* 128 mmol/L (135-149)
[2024-04-19 06:49] LABS: Anion Gap 6 mEq/L (7-15); Blood Urea Nitrogen* 15 mg/dL (7-30); Carbon Dioxide* 35 mmol/L (20-32); Creatinine* 0.4 mg/dL (0.5-1.5); Est. Creatinine Clearance* 30.47; Estimated Glomerular Filt Rate 96 ml/min
[2024-04-19 06:50] LABS: Calcium* 8.4 mg/dL (8.4-10.6); Glucose* 135 mg/dL (60-115); Phosphorus* 3.5 mg/dL (2.5-4.5)
[2024-04-19 07:49] VITALS: BP 132/65; PULSE 103; RESP 24; TEMP 36.3; O2SAT 92
[2024-04-19] MEDS: FUROSEMIDE 40 MG TABLET PO (07:52)
[2024-04-19] MEDS: SODIUM CHLORIDE 1 GM TABLET PO (07:52)
[2024-04-19] MEDS: POTASSIUM BICARB 25 MEQ EFFERVESCENT TAB PO (07:52)
[2024-04-19] MEDS: LACTOBACILLUS ACIDOPHILUS 1 TABLET 1 TAB PO (07:52)
[2024-04-19] MEDS: METOPROLOL TARTRATE 50 MG TABLET 75 MG PO (08:59)
[2024-04-19] MEDS: APIXABAN 5 MG TABLET 2.5 MG PO (09:52)
[2024-04-19] MEDS: SPIRONOLACTONE 25 MG TABLET 12.5 MG PO (09:52)
[2024-04-19] MEDS: CEFPODOXIME PROXETIL 200 MG TABLET PO (09:53)
[2024-04-19] MEDS: FERROUS SULFATE 325 MG TABLET PO (09:53)
[2024-04-19] MEDS: SODIUM CHLORIDE 0.9 % (FLUSH) 10 ML SYRINGE 5 ML IVF (09:56)
[2024-04-19 10:16] VITALS: PULSE 82
--- NOTE | 2024-04-19 10:18 | PC.SOCIAL ---
Discharge planning: youth support worker sent discharge orders to Marleny at [facility] via secure email, [email or web address]. Marleny was informed that pt is being picked up by friend at 11 from the hospital. youth support worker to follow up as needed.
--- NOTE | 2024-04-19 11:07 | PC.NURSE ---
Discharge: Patient pleasant and cooperative. Patient vitally stable, lungs course/diminished, BS WNL, IV removed, catheter intact. Patient denies pain, and 1A/walker with ambulating. Patient incontinent of bowel and bladder, with a BM this morning. Patient tolerating regular diet and up in the chair this morning. Patient tele=A.fib. Family member signed belongings sheet and discharge from with no further questions. Patient left the floor by wheelchair to [place] by family transport at 1027. Nurse to Nurse report given to Samantha.
--- NOTE | 2024-04-19 15:05 | P.DS_ITS ---
DS: Providers Provider Date Seen: 04/19/24 Date of admission: 04/16/24 08:20 Primary care physician: Danuta Ro PA-C Admitting Clinician: Gilmer Sam MD Consults: 04/17/24 09:16 Consult to Occupational Therapy [CONS] Routine Comment: Reason(s) for OT Consult:: Evaluate and Treat Any Restrictions?:: No Restrictions Consult to Physical Therapy [CONS] Routine Comment: Reason(s) for PT Consult:: Evaluate and Treat Any Restrictions?:: No Restrictions 04/17/24 10:52 Consult to Respiratory Therapy [CONS] Routine Comment: Reason(s) for RT Consult:: Consult Attending Physician on discharge: Nitza Wills MD [facility] Date of Discharge: 04/19/24 DS: Diagnosis Discharge Diagnosis (1) Acute hypoxic respiratory failure: Status: Acute Problem details: - oxygen saturation as low as 79% in the ER, likely combination of community acquired PNA, CHF exacerbation, and a fib with RVR - need for supplemental oxygen has decreased as patient has diuresed - continue antibiotics, diuresis, rate control for a fib (increased dose of Metoprolol as of 04/16) - 04/17 40mg lasix BID, aldactone 12.5mg daily. Still on IV ceftriaxone, has completed 3 doses of azithromycin. will transition to oral antibiotic (Vantin 200mg daily) - 04/19 New lasix dose is 40mg Qam, adding potassium, Spironolactone (2) Diastolic congestive heart failure with preserved left ventricular function, NYHA class 2: Status: Acute Problem details: - TTE from 04/16 below - on Lasix for diuresis, will add low dose Spironolactone 04/17 and monitor Na closely - trace proteinuria, LFTs mildly elevated Final Impressions: 1. Normal LV size, borderline wall thickness, mildly reduced global systolic function with an estimated EF of 60 - 65%. 2. Moderately enlarged left atrium. 3. Grade 2 pattern of LV diastolic filling. 4. The aortic valve is sclerotic, no stenosis and no regurgitation. 5. Mild-moderate tricuspid regurgitation. 6. Increased left atrial pressure. 7. Since the echo from 01/30, the RVSP has mildly decreased from 35 to 29 mmHg + a normal RAP. (3) Community acquired pneumonia: Status: Acute Problem details: - noted on 04/15 imaging, stable repeat CXR 04/16 - Ceftriaxone and Azithromycin (04/16) - (04/19) oral Vantin 200mg daily (renally dosed) - total 1 week of antibiotics (4) Atrial fibrillation: Status: Acute Problem details: - in RVR upon ER visit, HR improved 04/16 but still 90-105 - anticoagulated on Eliquis - 04/16: increased Metoprolol from 50mg BID --> 75mg BID, HR 70-90s (5) Frail elderly: Status: Acute Problem details: - working with therapies, will need SNF upon discharge (6) Normocytic anemia: Status: Acute Problem details: - no evidence of acute bleeding, no gastritis - mildly elevated BUN (30s) - current Hgb stable at 9.3, continue to follow (per chart review, baseline Hgb has been 9-11 since January 2024) (7) Hyponatremia: Status: Acute Problem details: - history of Na as low as 124 in January 2024, current Na of 132, asymptomatic - continue thrice daily oral supplementation, encourage protein intake - monitor closely given initiation of Spironolactone 04/17 (8) Sacral decubitus ulcer, stage III: Status: Acute Problem details: - followed by Wound Care, no evidence of acute infection when discharged from here late March DS: Summary Hospital Course Hospital Course: FINAL DIAGNOSIS/FOLLOW UP ISSUES: Hypoxemia - multifactorial. CAP likely pushed her into acute CHF and AFIB RVR. stable at discharge but may need supplement oxygen at times. Diastolic CHF - Echo reviewed; no acute changes. New Lasix dose is 40mg daily with aldactone at 12.5mg - will need potassium supplementation AFIB with RVR - resolved with up titration of metoprolol. CAP- treated with rocephin/Azithromycin that was transitioned to Vantin. BRIEF HOSPITAL COURSE: Patient was admitted for 4 days. Synopsis of acute inpatient issues are outlined above. Chronic medical conditions with notable findings outlined above. We treated the pneumonia, diuresed her, and managed/control her heart rate as it relates to atrial fib DISCHARGE MEDICATIONS: See Reconciled list - SIGNIFICANT CHANGES: Lasix, aldactone, potassium as outlined short rx of abx -Vantin nebulizer with duonebs Specific instructions to the patient and follow-up are outlined below. REVIEW OF SYSTEMS No new chest pain or dyspnea Pain controlled No voiding difficulties Tolerating diet challenge PHYSICAL EXAM: CONSTITUTIONAL: mildly dishelved; looks tired. VITAL SIGNS: see record. HEENT: Normocephalic, atraumatic. PERRL, EOMI, conjunctivae pink, no scleral icterus. Ears and nose externally normal. Pharynx normal. NECK: No JVD. No carotid bruit, no thyromegaly, no adenopathy. CHEST: Clear to auscultation bilaterally. HEART: S1 and S2 normal - irregular. Edema improved. ABDOMEN: Soft, nontender. Normal bowel sounds. MUSCULOSKELETAL: No gross joint deformity or swelling. NEURO: Cranial nerves intact. Grossly intact. No asymmetric findings. SKIN: No rashes, petechiae, concerning changes PSYCHIATRIC: Mood euthymic. DISPOSITION: [facility] Time spent on discharge 37 minutes. Status at Discharge Functional status at discharge: uses cane/walker Overall status at discharge: patient is not back to baseline Time Spent with Patient Time attestation: Total time spent providing and/or coordinating discharge services: Time spent: Greater than 30 minutes Exam Const: Vital Signs, click to edit/add: Vital Signs - 24 hr 04/18/24 15:40 04/18/24 19:05 04/18/24 23:00 Temperature 97.6 F 97.7 F Pulse Rate 88 Pulse Rate [Right Pulse Oximeter] 105 H 80 Respiratory Rate 16 16 Blood Pressure [Le ft Arm] 137/74 148/59 H Pulse Oximetry 94 94 Oxygen Delivery Me thod Nasal Cannula Nasal Cannula Oxygen Flow Rate 1 1 04/18/24 23:00 04/19/24 02:49 04/19/24 07:49 Temperature 97.7 F 97.4 F L Pulse Rate 94 Pulse Rate [Right Pulse Oximeter] 87 103 H Respiratory Rate 14 24 Blood Pressure [Le ft Arm] 141/76 H 132/65 Pulse Oximetry 93 92 Oxygen Delivery Me thod Nasal Cannula Room Air Oxygen Flow Rate 1 04/19/24 07:49 04/19/24 10:16 Temperature Pulse Rate 82 Pulse Rate [Right Pulse Oximeter] 103 H Respiratory Rate 24 Blood Pressure [Le ft Arm] Pulse Oximetry Oxygen Delivery Me thod Oxygen Flow Rate DS: Data Data Completed and Pending Completed studies during hospitalization: Procedures Extraction of Back Skin, External Approach (03/29/24) Replacement of Right Hip Joint, Femoral Surface with Ceramic Synthetic Substitute, Cemented, Open Approach (01/14/24) Labs on day of discharge: Labs from last 24 hours 04/19/24 05:50 WBC 12.14 H RBC 3.31 L Hgb 9.7 L Hct 30.9 L MCV 93 MCH 29 MCHC 31 L Plt Count 474 H Sodium 128 L Potassium 3.1 L Chloride 87 L Carbon Dioxide 35 H Anion Gap 6 L BUN 15 Creatinine 0.4 L Estimated Creat Clear 30.47 Estimated GFR 96 Glucose 135 H Calcium 8.4 Phosphorus 3.5 Albumin 3.2 L Discharge Plan Discharge Disposition: er [facility] Date of Admission: 04/16/24 08:20 Attending Provider on Discharge: Nitza Wills Primary Care Provider: Danuta Ro Condition: Unchanged Discharge Medications: New furosemide 40 mg Tablet 40 mg PO DAILY@0800 Qty: 30 0RF ipratropium-albuterol 0.5 mg-3 mg(2.5 mg base)/3 mL Solution For Nebulization 3 ml inhalation Q4H PRN (Reason: Wheezing) Qty: 30 0RF polyethylene glycol 3350 [Miralax] 17 gram Powder In Packet 17 g PO DAILY PRNQty: 30 0RF cefpodoxime 200 mg Tablet 200 mg PO DAILY Qty: 5 0RF spironolactone 25 mg Tablet 12.5 mg PO DAILY Qty: 30 0RF metoprolol tartrate 50 mg Tablet 75 mg PO BID Qty: 90 0RF omeprazole 20 mg Capsule,Delayed Release(Dr/Ec) 40 mg PO DAILY@0700 Qty: 30 0RF Effer-K 25 mEq Tablet, Effervescent 25 meq PO BID Qty: 60 0RF (DME) nebulizer and compressor Device See Rx Instructions .Route Qty: 1 0RF Rx Instructions: nebulize ipratropium/albuterol every 4 hours as needed for dyspnea/wheezing Continued acetaminophen 325 mg tablet 650 mg PO TID Rx Instructions: AND NEEDED cholecalciferol (vitamin D3) 50 mcg (2,000 unit) capsule 50 mcg PO DAILY ferrous sulfate 325 mg (65 mg iron) tablet,delayed release (DR/EC) 325 mg PO DAILY magnesium gluconate 27 mg magnesium (500 mg) tablet 27 mg PO BID sennosides [senna] 8.6 mg tablet 8.6 mg PO HS Eliquis 5 mg Tablet 2.5 mg PO BID Qty: 90 0RF Changed sodium chloride 1,000 mg Tablet,Soluble 2,000 mg PO TIDWM Qty: 180 0RF Discontinued metoprolol tartrate 50 mg tablet 50 mg PO BID Qty: 60 2RF Discharge Orders: Discharge Order (Routine); Ordered 04/19/24 Ordered By: Nitza Wills Additional Instructions: patient should have a BMP on 04/22, following sodium and potassium secondary to diuretic therapy. goal sodium: 128-135 goal potassium: 3.5-5.0 Activity Level: Activity as Tolerated Discharge Diet: Regular Follow Up Appointments: Danuta Ro PA-C [Primary Care Provider] - (1-2 weeks for hospital f/u pt should have BMP prior to provider appt) Forms: [employer] Info Instructions Admit to: SNF Discharge Potential: Fair Length of Stay: 30-90 days Can use facility standing orders?: Yes Code Status: Full Code Rehab Potential: Fair Therapy: Physical Therapy and Occupational Therapy Therapy Orders: Evaluate and Treat Oxygen: No Urinary Catheter: No Lab Orders: bmp 04/22 Orders are good >30 days: Yes
== END 2024-04-19 10:27 | DRG 291 ==
LOC: ED 20:05 → MEDSURG 04-16 00:43
PROVIDERS: Family Medicine; Admitting Provider Student in an Organized Health Care Education/Training Program; Emergency Provider Emergency Medicine Emergency Medical Services; PCP Physician Assistant Medical; Visit Provider Student in an Organized Health Care Education/Training Program
DX: I11.0 Hypertensive heart disease with heart failure (principal); I50.33 Acute on chronic diastolic (congestive) heart failure; L89.153 Pressure ulcer of sacral region, stage 3; J96.01 Acute respiratory failure with hypoxia; J18.9 Pneumonia, unspecified organism; I48.20 Chronic atrial fibrillation, unspecified; E87.1 Hypo-osmolality and hyponatremia; R64 Cachexia; Z79.01 Long term (current) use of anticoagulants; F41.1 Generalized anxiety disorder; D64.9 Anemia, unspecified; R54 Age-related physical debility; Z87.891 Personal history of nicotine dependence; I43 Cardiomyopathy in diseases classified elsewhere; K21.9 Gastro-esophageal reflux disease without esophagitis; Z68.20 Body mass index [BMI] 20.0-20.9, adult; I08.0 Rheumatic disorders of both mitral and aortic valves
CPT/HCPCS: 36415; 71045; 80048; 80053; 80069; 80076; 81001; 81003; 82803; 84443; 84484; 85025; 85027; 87081; 93306; 97162; 97166; 97530; 97535; 99284; 99285; G0378; A9270; J0696; J1100; J1940